=== PATIENT | female | born 1940 | race Caucasian/White ===

== ENCOUNTER 2017-11-23 16:36 | Emergency (ER) | payer OTHER ==
[~2017-11-23] VITALS: Ht 160 cm; Wt 64.0 kg
[~2017-11-23 16:36] MED LIST: ASPIR 8181 MG PO; BACTRIM DS TAB1 EACH PO; CARVEDILOL12.5 MG PO; CATAPRESS3 PO; CENTRUM SILVER1 EAC4 PO; CLEOCIN HCL150 MG; CLONIDINE HCL0.3 M3; COMBIVENT RESPIM4 GM INH; EFFER-K 10 MEQ10 ME1 PO; FLONASE 0.05%50 MCG NASAL; FOLIC ACID1 MG PO; HUMALOG100 UNIT/2 SQ; HUMULIN N100 UNIT/1 SUBQ; HUMULINR100 SUBQ; HYDRALAZINE 2525 MG PO; HYDROCODON-ACE1 EAC7 PO; HYDROCODONE-AP1 EAC6 PO; KLOR-CON 1010 MEQ PO; LASIX 80 MG TAB80 MG PO; LEVEMIR SUBQ; LISINOPRIL10 MG PO; METANX CAPSULE1 EACH PO; MIRALAX17 GM PO; NEPHROCAPS SOFT1 CAP PO; NORCO 5-325 TA1 EACH PO; NORVASC5 MG PO; PLAVIX 75 MG TA75 MG PO; PRAVACHOL40 M1 PO; PROCARDIA XL60 MG PO; PROTONIX40 M1 PO; REGLAN 10 MG TA10 MG PO; TENORMIN50 MG PO; TUMS PO; ULTRAM 50MG TAB50 MG PO; VITAMIN D1000 UNI1 PO; ZETIA10 MG PO; [UNRECOGNIZED DRUG - OTHER] PO
[2017-11-23 17:19] LABS: INFLUENZA B ANTIGEN None Detected (None Detect)
[2017-11-23 17:26] LABS: ABSOLUTE EOSINOPHILS 0.1 thou/uL (0.0-0.7); ABSOLUTE LYMPHOCYTES 1.1 thou/uL (0.8-5.3); ABSOLUTE MONOCYTES 0.8 thou/uL (0.0-1.2); ABSOLUTE NEUTROPHILS 3.3 thou/uL (1.6-8.1); BASOPHILS 0.9 %; EOSINOPHILS 1.1 %; HEMATOCRIT 36.2 % (37.0-47.0); HEMOGLOBIN 11.9 gm/dL (12.0-15.0); LYMPHOCYTES 20.4 %; MCH 31.1 pg (26.0-34.0); MCHC 32.8 g/dL (28.0-37.0); MPV 9.5 fl. (7.2-11.1); NUCLEATED RBCS 0 /100WBC; PLATELET COUNT* 248 thou/uL (150-400); POLYS 62.6 %; RBC 3.82 mil/uL (4.20-5.00); RDW-CV 14.2 % (10.5-14.5); WBC 5.3 thou/uL (4.0-11.0)
[2017-11-23 17:30] LABS: CALCIUM 8.6 mg/dL (8.5-10.1); CREATININE 2.5 mg/dL (0.6-1.3); POTASSIUM 3.5 mmol/L (3.5-5.1)
[2017-11-23 17:35] LABS: ALBUMIN 2.6 g/dL (3.4-5.0); TOTAL BILIRUBIN 0.2 mg/dL (<0.1-1.0); TOTAL PROTEIN 6.6 g/dL (6.4-8.2)
[2017-11-23] MEDS ORDERED: NEBULIZER MISCELL (18:33)
[2017-11-23] MEDS ORDERED: VENTOLIN HFA 1818 GM INH (18:33)
[2017-11-23] MEDS ORDERED: DUONEB 2.5-0.5 M3 ML INH (18:33)
[2017-11-23 18:47] VITALS: BP 168/64
[2018-02-20] MEDS ORDERED: BENADRYL25 MG PO (10:33)
[2018-02-20] MEDS ORDERED: NOVOLIN N100 UNIT/3 SUBQ (10:35)
[2018-05-01] MEDS ORDERED: MAGOX 400400 MG PO (09:59)
[2018-07-21] MEDS ORDERED: CATAPRESS3 TRANSDERM (10:26)
== END 2017-11-23 18:48 | disposition home or self-care (01) ==
LOC: M.ERS 16:36
PROVIDERS: Physician Assistant
DX: J11.1 Influenza due to unidentified influenza virus with other respiratory manifestations (principal); F17.210 Nicotine dependence, cigarettes, uncomplicated; E78.5 Hyperlipidemia, unspecified; I12.0 Hypertensive chronic kidney disease with stage 5 chronic kidney disease or end stage renal disease; E11.22 Type 2 diabetes mellitus with diabetic chronic kidney disease; N18.6 End stage renal disease; Z99.2 Dependence on renal dialysis; Z79.4 Long term (current) use of insulin; Z98.890 Other specified postprocedural states; Z88.1 Allergy status to other antibiotic agents; Z88.0 Allergy status to penicillin; Z88.8 Allergy status to other drugs, medicaments and biological substances

== ENCOUNTER 2017-11-28 09:01 | Inpatient (IN) | payer OTHER ==
[~2017-11-28] VITALS: Ht 160 cm; Wt 60.3 kg
[~2017-11-28 09:01] MED LIST changes: +DUONEB 2.5-0.5 M3 ML INH; +NEBULIZER MISCELL; +VENTOLIN HFA 1818 GM INH
[2017-11-28 09:32] LABS: HEMATOCRIT 35.2 % (37.0-47.0); HEMOGLOBIN 11.4 gm/dL (12.0-15.0); MCH 30.8 pg (26.0-34.0); MCHC 32.5 g/dL (28.0-37.0); MCV 94.8 fL (80.0-100.0); MPV 9.1 fl. (7.2-11.1); NUCLEATED RBCS 0 /100WBC; PLATELET COUNT* 348 thou/uL (150-400); RBC 3.71 mil/uL (4.20-5.00); RDW-CV 14.4 % (10.5-14.5); WBC 13.7 thou/uL (4.0-11.0)
[2017-11-28 09:38] LABS: CALCIUM 7.9 mg/dL (8.5-10.1); CREATININE 3.3 mg/dL (0.6-1.3); POTASSIUM 3.8 mmol/L (3.5-5.1)
[2017-11-28 09:41] LABS: APTT 34.4 Seconds (25.0-31.3); INR 1.2; PROTIME 11.3 Seconds (9.20-11.50)
[2017-11-28] MEDS ORDERED: NIFEDIPINE ER60 M1 PO (09:44)
[2017-11-28] MEDS ORDERED: ZYRTEC10 M4 PO (09:45)
[2017-11-28] MEDS ORDERED: RENAL CAPS SOFTG1 MG PO (09:45)
[2017-11-28 09:50] LABS: ALBUMIN 2.3 g/dL (3.4-5.0); TOTAL BILIRUBIN 0.2 mg/dL (<0.1-1.0); TOTAL PROTEIN 6.8 g/dL (6.4-8.2); TROPONIN-I LEVEL 0.47 ng/mL (<0.06)
[2017-11-28 10:05] LABS: ABSOLUTE LYMPHOCYTES 1.4 thou/uL (0.8-5.3); ABSOLUTE MONOCYTES 0.4 thou/uL (0.0-1.2); ABSOLUTE NEUTROPHILS 11.9 thou/uL (1.6-8.1); ATYPICAL LYMPHS 2 %; METAMYELOCYTES 1 %
[2017-11-28 10:06] LABS: HYPOCHROMASIA 1+; PLATELET ESTIMATE INCREASED
--- NOTE | 2017-11-28 13:01 | NUR ---
PT GIVEN TRAY FOR LUNCH AT THIS TIME.
--- NOTE | 2017-11-28 13:31 | NUR ---
CARDIOLOGY NURSE, GUNJAN CONTACTED AND INFORMED OF BUMPED TROPONIN.
[2017-11-28 14:22] VITALS: BP 133/55
[2017-11-28 16:05] VITALS: BP 127/52
[2017-11-28 16:10] VITALS: BP 131/48
[2017-11-28 16:12] LABS: URINE BILIRUBIN NEGATIVE (Negative); URINE BLOOD NEGATIVE (Negative); URINE CLARITY CLEAR; URINE COLOR YELLOW; URINE GLUCOSE-RANDOM NEGATIVE (Negative); URINE KETONES NEGATIVE (Negative); URINE LEUKOCYTES-REFLEX NEGATIVE (Negative); URINE NITRITE-REFLEX NEGATIVE (Negative); URINE PROTEIN 1+ (Negative); URINE SPECIFIC GRAVITY 1.025 (1.005-1.030); URINE UROBILINOGEN 0.2 E.U./dl (0.2-1.0)
--- NOTE | 2017-11-28 16:19 | EKG ---
[place] [address] ELECTROCARDIOGRAM REPORT Name: OWEN MARCANO Room: [address] ADM IN .R.#: [id number] Admission: 11/28/17 Attend Phys: Kevon Bunn MD Discharge: Date of : 40 Report #: [id number] THIS REPORT FOR: //name// [facility] ED Test Date: 2017-11-28 Test Time: 09:15:01 Pat Name: OWEN MARCANO Department: Room: [facility] Gender: F Medical Typist: Lorraine LANGE : 1940 Requested By: Tyrel Leahy Order Number: [id number] MD: Mynor Rice Measurements Intervals [place] Rate: 99 P: 170 NH: 207 QRS: -21 QRSD: 90 T: 60 QT: 333 QTc: 428 Interpretive Statements Sinus or ectopic atrial rhythm Supraventricular bigeminy Borderline prolonged NH interval Borderline left axis deviation Anterior infarct, old Compared to ECG 09/15/2017 05:19:19 Ectopic atrial rhythm now present Atrial premature complex(es) now present Sinus rhythm no longer present Ventricular premature complex(es) no longer present Myocardial infarct finding still present Electronically Signed On 11-28-2017 16:19:04 [employer] by Mynor Rice [email or web address] <ELECTRONICALLY SIGNED> By: Mynor Rice MD, [facility] 11/28/17 1619 4 4 Mynor Rice MD, [facility] /EPI
--- NOTE | 2017-11-28 17:14 | NUR ---
PT ADMITTED TO ROOM 202 AROUND 1610 WITH FLU, HYPOXIA, AND ELEVATED TROPONIN. TROPONINS TRENDING UP, CARDIOLOGY AWARE. PT ON 2L OXYGEN/ NC WITH SATS 96%. VSS. DISCUSSED PT WITH NEPHROLOGY. PT STATES NO DIALYSIS SINCE LAST SUNDAY D/T FEELING SICK. NEPHROLOGY PLANS TO DO DIALYSIS TOMORROW. ISOLATION PRECAUTIONS FOR FLU. NO OTHER CONCERNS AT THIS TIME. CLWR. WCTM.
[2017-11-28 20:00] VITALS: BP 140/53
[2017-11-29] VITALS: BP 139/53
[2017-11-29 04:00] VITALS: BP 141/56
--- NOTE | 2017-11-29 04:06 | NUR ---
ALERT AND ORIENTED TO SELF. CONT. ISOLATION FOR FLU. DENIES COMPLAINTS OF PAIN OR DISCOMFORT. NO SIGN OF DISTRESS AT THIS TIME. BED IN LOW POSITION, CALL LIGHT IN REACH. WILL PROCEED WITH CURRENT PLAN OF CARE.
[2017-11-29 05:20] LABS: HEMATOCRIT 36.5 % (37.0-47.0); HEMOGLOBIN 12.2 gm/dL (12.0-15.0); MCH 31.5 pg (26.0-34.0); MCHC 33.4 g/dL (28.0-37.0); MCV 94.6 fL (80.0-100.0); MPV 9.4 fl. (7.2-11.1); NUCLEATED RBCS 0 /100WBC; PLATELET COUNT* 356 thou/uL (150-400); RBC 3.86 mil/uL (4.20-5.00); RDW-CV 14.5 % (10.5-14.5); WBC 18.6 thou/uL (4.0-11.0)
[2017-11-29 05:41] LABS: CALCIUM 7.9 mg/dL (8.5-10.1); CREATININE 3.4 mg/dL (0.6-1.3); POTASSIUM 4.7 mmol/L (3.5-5.1)
[2017-11-29 06:35] LABS: ABSOLUTE LYMPHOCYTES 0.9 thou/uL (0.8-5.3); ABSOLUTE MONOCYTES 0.2 thou/uL (0.0-1.2); ABSOLUTE NEUTROPHILS 17.5 thou/uL (1.6-8.1); ANISOCYTOSIS 1+; PLATELET ESTIMATE ADEQUATE; POIKILOCYTOSIS 1+; POLYCHROMASIA Occasional
[2017-11-29 08:00] VITALS: BP 153/68
--- NOTE | 2017-11-29 12:55 | CON ---
[address] [address] CONSULTATION Name: OWEN MARCANO Room: [address] IN M.R.#: [id number] Admission: 11/28/17 Attend Phys: Kevon Bunn MD Discharge: Date of : 40 Report #: [id number] THIS REPORT FOR: //name// CC: Kevon Bunn KRISTYN EMERSON DATE OF SERVICE: 11/28/2017 ATTENDING PHYSICIAN: Kevon Bunn MD REASON FOR EVALUATION: Influenza A, complicated by dehydration, possible early sepsis. HISTORY OF PRESENT ILLNESS: Chart reviewed, patient examined. This is a 77-year-old female with diabetes mellitus type 2, this is complicated by end-stage renal disease, on thrice weekly hemodialysis, who apparently was diagnosed with influenza latter part of last week. This was confirmed. She notes that a great granddaughter who was diagnosed as well. She was offered treatment with oseltamivir; however, she declined. She continued to feel worse over the course of the last several days, missed 2 dialysis appointments, became progressively weak and more short of breath. She had fever as well, had poor appetite and p.o. intake. She was evaluated in the Emergency Room. Lactic acid was 1.4. White count elevated at 13.1. Chest x-ray, no overt pneumonitis. She was febrile to 103.3 earlier today. She is mildly encephalopathic at this point. Denies significant amount of pain. ALLERGIES: PENICILLINS, TETRACYCLINE AND ERYTHROMYCIN. CURRENT MEDICATIONS: Include levofloxacin, vancomycin, folic acid, nifedipine, lisinopril, clopidogrel, cholecalciferol, aspirin, ezetimibe, pantoprazole, furosemide, insulin, carvedilol, ipratropium and albuterol inhaler, hydralazine, p.r.n. analgesics and antiemetics. PAST MEDICAL HISTORY: As described above, diabetes mellitus complicated by end-stage renal disease, hyperlipidemia, hypertension. SOCIAL HISTORY: She is a long time tobacco smoker. No ethanol. No illicit drug use. FAMILY HISTORY: Noncontributory. REVIEW OF SYSTEMS: As above. PHYSICAL EXAMINATION: GENERAL: She appears chronically ill, undernourished, in moderate distress, on oxygen supplement per mask. She is pleasant, [place] [address] CONSULTATION Name: OWEN MARCANO SIMON Room: [address]#: [id number] Admission: 11/28/17 Attend Phys: Kevon Bunn MD Discharge: Date of : 40 Report #: [id number] VITAL SIGNS: Temperature now 99.9 with a T-max of 103.3, pulse ____, respirations 14, blood pressure 127/52. SKIN: Warm, dry. I do not appreciate any rashes. She has got some thinning of the skin and some loss of subcutaneous tissue. HEENT: Neck is supple. LUNGS: Few scattered coarse breath sounds. HEART: Regular, may have soft systolic murmur. ABDOMEN: Soft, nontender, nondistended. EXTREMITIES: No cyanosis. GENITOURINARY: Deferred. RECTAL: Deferred. LABORATORY DATA: Troponin elevated at 0.93. CBC: White count 13.7, H and H 11.4 and 35.2, platelets of 348, evidence of neutrophilia. Electrolytes: Sodium 136, potassium 3.8, chloride 98, bicarbonate is 27, anion gap of 11, BUN and creatinine 59 and 3.3, glucose of 87, AST of 47, ALT of 29, total bilirubin of 0.2. Estimated GFR of 14. Albumin 2.3. Total protein of 6.8. ASSESSMENT: Influenza by history, certainly consistent with that due to her feeling poorly, ____ given her missing dialysis appointments ____ continued taking the Lasix and dehydration concern. I think it is reasonable to treat empirically ____ risk for secondary complication with bacterial pneumonitis, see how she does clinically over the next 24-48 hours. At this point, she remains fairly tenuous. <ELECTRONICALLY SIGNED> By: Vern Cisneros MD 11/29/17 1255 1533 [id number] Cisneros MD /nt
--- NOTE | 2017-11-29 14:05 | 2DMMODE ---
[place] [address] 2 D/M-MODE ECHOCARDIOGRAM Name: OWEN MARCANO Room: [address] IN [facility]#: [id number] Admission: 11/28/17 Attend Phys: Kevon Bunn, Discharge: Date of : 40 Date of Service: 11/29/17 1404 Report #: [id number] THIS REPORT FOR: //name// APPROVED REPORT Study performed: 11/29/2017 11:52:40 EXAM: Comprehensive 2D, Doppler, and color-flow Echocardiogram Patient Location: In-Patient Room #: [facility] Status: routine BSA: 1.67 HR: 56 bpm BP: 141/56 mmHg Rhythm: NSR Other Information Study Quality: Good Indications Elevated Troponin 2D Dimensions LVEF(%): 47.05 (>50%) IVSd: 11.93 (7-11mm) LVOT Diam: 18.25 (18-24mm) LVDd: 39.15 mm PWd: 9.50 (7-11mm) Ascending Ao: 25.79 (22-36mm) LVDs: 30.08 (25-40mm) Aortic Root: 29.02 mm Blackmon's LVEF: 47.05 % Volumes Left Atrial Volume (Systole) LA ESV Index: 15.90 mL/m2 Aortic Valve AoV Peak Moreno.: 1.25 m/s AO Peak Gr.: 6.22 mmHg LVOT Max P.73 mmHg AO Mean Gr.: 3.41 mmHg LVOT Mean P.65 mmHg LVOT Max V: 0.97 m/s AO V2 VTI: 25.14 cm LVOT Mean V: 0.58 m/s TEQUILA (VTI): 2.02 cm2 LVOT V1 VTI: 19.39 cm Mitral Valve E/A Ratio: 0.86 [place] [address] 2 D/M-MODE ECHOCARDIOGRAM Name: OWEN MARCANO Room: [address] IN .R.#: [id number] Admission: 11/28/17 Attend Phys: Kevon Bunn, Discharge: Date of : 40 Date of Service: 11/29/17 1404 Report #: [id number] MV Decel. Time: 333.58 ms MV E Max Moreno.: 0.72 m/s MV PHT: 96.74 ms MVA (PHT): 2.27 cm2 TDI E/Lateral E': 10.29 E/Medial E': 8.00 Medial E' Moreno.: 0.09 m/s Lateral E' Moreno.: 0.07 m/s Pulmonary Valve PV Peak Moreno.: 1.08 m/s PV Peak Gr.: 4.68 mmHg Tricuspid Valve TR Peak Gr.: 32.25 mmHg RVSP: 37.00 mmHg Left Ventricle The left ventricle is normal size. There is abnormal wall motion with distal anterior hypokinesis There is normal left ventricular wall thickness. Left ventricular systolic function is normal. The left ventricular ejection fraction is within the normal range. LVEF is 55-60%. Grade I - abnormal relaxation pattern. Right Ventricle The right ventricle is normal size. The right ventricular systolic function is normal. Atria The left atrium size is normal. The right atrium size is normal. Aortic Valve The aortic valve is normal in structure. No aortic regurgitation is present. There is no aortic valvular stenosis. Mitral Valve Mild mitral annular calcification. There is no mitral valve regurgitation noted. No evidence of mitral valve stenosis. Tricuspid Valve The tricuspid valve is normal in structure. Mild tricuspid regurgitation. The RVSP is 35-40 mmHg. Pulmonic Valve The pulmonary valve is normal in structure. There is no pulmonic [place] [address] 2 D/M-MODE ECHOCARDIOGRAM Name: OWEN MARCANO Room: [address] IN M.R.#: [id number] Admission: 11/28/17 Attend Phys: Kevon Bunn, Discharge: Date of : 40 Date of Service: 11/29/17 1404 Report #: [id number] Great Vessels The aortic root is normal in size. IVC is normal in size and collapses with >50% inspiration Pericardium There is no pericardial effusion. <Conclusion> The left ventricle is normal size. There is normal left ventricular wall thickness. Left ventricular systolic function is normal. The left ventricular ejection fraction is within the normal range. LVEF is 55-60%. Grade I - abnormal relaxation pattern. The right ventricle is normal size. The left atrium size is normal. The aortic valve is normal in structure. Mild mitral annular calcification. There is no mitral valve regurgitation noted. The tricuspid valve is normal in structure. Mild tricuspid regurgitation. The RVSP is 35-40 mmHg. IVC is normal in size and collapses with >50% inspiration There is no pericardial effusion. There is abnormal wall motion with distal anterior hypokinesis <ELECTRONICALLY SIGNED> By: Mynor Rice MD, FACC 11/29/17 1404 1404 1404 Mynor Rice MD, FACC /INF
--- NOTE | 2017-11-29 14:56 | NUR ---
CM SPOKE TO THE PATIENT TO DISCUSS HOME SITUATION, DISCHARGE PLANNING, AND TO INFORM OF THE ROLE OF CM. PATIENT ALERT AND ORIENTED. PATIENT STATES THAT SHE IS NORMALLY INDEPENDENT AT HOME WITH BATHING AND DRESSING. PATIENT RESIDES AT HOME WITH HER AND HE DOES ALL COOKING, CLEANING, AND DRIVING. PATIENT CURRENTLTY RECIEVES DIALYSIS AT [facility] ([facility]). PATIENT OWNS 0 DME. PATIENT HAS A HX OF SNF AT [facility]. PATIENT PLANS TO RETURN HOME AT D/C. CM WILL REMAIN AVIALABLE TO ASSIST AND FOLLOW NEEDED.
[2017-11-29 16:00] VITALS: BP 110/37
[2017-11-29 18:10] LABS: HEPATITIS B SURFACE AG Negative (Negative)
--- NOTE | 2017-11-29 18:40 | NUR ---
I ASSUMED CARE OF THE PATIENT AT 0700. SHE IS ALERT AND ORIENTED X4 AND IS UP WITH ASSIST X1. ISOLATION WAS MAINTAINED FOR DROPLET PRECAUTIONS. HOURLY ROUNDING WAS COMPLETED AND PATIENT NEEDS WERE MET. PAIN WAS DENIED. BED IS IN THE LOW LOCKED POSITION AND CALL LIGHT IS IN REACH. IS AT THE BEDSIDE MOST OF THE DAY. SHE HAD DIALYSIS FOR 3.5 HOURS TODAY. WILL CONTINUE TO MONITOR.
[2017-11-29 19:55] VITALS: BP 100/40
[2017-11-30] VITALS: BP 90/40
--- NOTE | 2017-11-30 02:08 | NUR ---
ASSUMED CARE OF PT AT 1900. PT IS ALERT AND ORIENTED. VSS. PERRLA. NO COMPLAINTS OF PAIN. PT IS IN SINUS RYTHM ON THE TELEMETRY. PT IS RESTING COMFORTABLY IN BED. RESPIRATIONS ARE EVEN AND NONLABORED. WILL CONTINUE TO MONITOR PT.
[2017-11-30 04:00] VITALS: BP 118/42
[2017-11-30 05:18] LABS: ABSOLUTE LYMPHOCYTES 1.4 thou/uL (0.8-5.3); ABSOLUTE MONOCYTES 0.9 thou/uL (0.0-1.2); ABSOLUTE NEUTROPHILS 22.8 thou/uL (1.6-8.1); BASOPHILS 0.1 %; HEMATOCRIT 35.9 % (37.0-47.0); HEMOGLOBIN 11.9 gm/dL (12.0-15.0); LYMPHOCYTES 5.7 %; MCH 30.7 pg (26.0-34.0); MCHC 33.2 g/dL (28.0-37.0); MCV 92.3 fL (80.0-100.0); MONOCYTES 3.6 %; MPV 8.9 fl. (7.2-11.1); NUCLEATED RBCS 0 /100WBC; POLYS 90.6 %; RBC 3.89 mil/uL (4.20-5.00); RDW-CV 14.4 % (10.5-14.5); WBC 25.2 thou/uL (4.0-11.0)
[2017-11-30 05:29] LABS: PLATELET COUNT* 462 thou/uL (150-400)
[2017-11-30 05:34] LABS: ALBUMIN 2.2 g/dL (3.4-5.0); CALCIUM 8.7 mg/dL (8.5-10.1); CREATININE 2.9 mg/dL (0.6-1.3); POTASSIUM 3.8 mmol/L (3.5-5.1); TOTAL BILIRUBIN 0.3 mg/dL (<0.1-1.0); TOTAL PROTEIN 6.9 g/dL (6.4-8.2)
[2017-11-30 07:00] VITALS: BP 120/42
[2017-11-30 12:00] VITALS: BP 120/42
--- NOTE | 2017-11-30 19:04 | NUR ---
VSS, PT IS PROGRESSING TOWARDS GOAL, PT HAS BEEN UP IN CHAIR AND DENIES ANY PAIN AND IS MED-SURG STATUS. PT HAS NOT OTHER STATUS CAHNGE AT THIS TIME AND IS ON 2LNC AND A&O4 UP WITH ONE TO BSC, WORKED WITH PT/OT AND GOT CLEANED UP.
--- NOTE | 2017-11-30 19:23 | NUR ---
VSS, PT IS MED-SURG STATUS, PT IS ON 2L NC, I INFORMED DR. SHI AND DR. ORTEGA OF GRAM POS COCCI IN BLOOD, PT IS FLAGGING SEPSIS POS, NO NEW ORDERS AT THIS TIME, NO OTHER STATUS CHANGE AT THIS TIME, WILL FOLLOW WITH PLAN OF CARE. AND SHIFT CHANGE.
[2017-11-30 20:36] VITALS: BP 111/36
--- NOTE | 2017-11-30 21:39 | NUR ---
ASSUMED PATIENT CARE AT 1900. BEDSIDE REPORT GIVEN. SPOUSE AT BEDSIDE. VERIFIED DIALYSIS SCHEDULE. M/S STATUS. 2L NC. PATIENT INFORMED OF ELEVATED BG. STATES SHE DOES NOT TAKE INSULIN AT BEDTIME DUE TO HISTORY OF HYPOGLYCEMIA OVERNIGHT. HOURLY ROUNDING AND FALL PRECAUTIONS IN PLACE. WILL CONTNUE TO MONITOR.
[2017-12-01 04:00] VITALS: BP 84/45
[2017-12-01 05:47] LABS: CALCIUM 8.2 mg/dL (8.5-10.1); CREATININE 4.6 mg/dL (0.6-1.3); POTASSIUM 3.7 mmol/L (3.5-5.1)
[2017-12-01 07:30] VITALS: BP 128/46
--- NOTE | 2017-12-01 09:11 | NUR ---
VSS, ASSUMED CARE IN THE AM, ASSESSMENT PERFORMED AND CHARTED, FALL PRECAUTIONS IN PLACE AND CALL LIGHT IN REACH, PT IS A&O4 AND ON 2L NC AND UP WITH ONE TO BSC, PT IS WEAK AND IS TO GO TO DIALYSIS TODAY, PT DENIES ANY PAIN AND IS MED-SURG STATUS, PT GOAL IS TO SIT UP IN CHAIR AND IMPROVE BREATHING, PT REMAINS IN ISO WILL FOLLOW WITH PLAN OF CARE.
[2017-12-01 16:00] VITALS: BP 134/41
--- NOTE | 2017-12-01 18:51 | NUR ---
VSS, PT IS HAS MET GOAL, PT IS MED-SURG ON 2L NC AND UP WITH ONE AND COMPLETED DIALYSIS, PT IS A&O4 DENIES ANY PAIN AND PT IS UP WITH ONE TO BSC AND IS WEAK, PAPA FOLLOW WITH PLAN OF CARE AND HOURLY ROUNDS COMPLETED.
[2017-12-01 19:40] VITALS: BP 121/33
[2017-12-02 04:22] VITALS: BP 134/78
--- NOTE | 2017-12-02 05:01 | NUR ---
END SHIFT: PT RESTED WELL. LETHARGIC OVER SHIFT. PT STATES THAT SHE "GETS LIKE THIS AFTER DIALYSIS." REMAINS ON 2L NC. RIGHT CHEST DIALYSIS CATH CLEAN DRY AND INTACT. NO COMPLAINTS OVER SHIFT, NO PAIN. SAFETY PRECAUTIONS IN PLACE. CALL LIGHT IN REACH. PERFORMED HOURLY ROUNDING. WILL CONT TO MONITOR.
[2017-12-02 08:00] VITALS: BP 151/63
[2017-12-02 10:09] LABS: HEMATOCRIT 41.8 % (37.0-47.0); HEMOGLOBIN 13.5 gm/dL (12.0-15.0); MCH 30.6 pg (26.0-34.0); MCHC 32.3 g/dL (28.0-37.0); MCV 94.8 fL (80.0-100.0); MPV 8.6 fl. (7.2-11.1); NUCLEATED RBCS 0 /100WBC; PLATELET COUNT* 424 thou/uL (150-400); RDW-CV 14.4 % (10.5-14.5); WBC 17.9 thou/uL (4.0-11.0)
[2017-12-02 10:28] LABS: ALBUMIN 2.4 g/dL (3.4-5.0); CALCIUM 8.9 mg/dL (8.5-10.1); CREATININE 3.8 mg/dL (0.6-1.3); POTASSIUM 4.3 mmol/L (3.5-5.1); TOTAL BILIRUBIN 0.4 mg/dL (<0.1-1.0); TOTAL PROTEIN 7.1 g/dL (6.4-8.2)
[2017-12-02 10:32] LABS: ABSOLUTE LYMPHOCYTES 0.9 thou/uL (0.8-5.3); ABSOLUTE MONOCYTES 0.7 thou/uL (0.0-1.2); ABSOLUTE NEUTROPHILS 16.3 thou/uL (1.6-8.1); METAMYELOCYTES 4 %
[2017-12-02 10:33] LABS: PLATELET ESTIMATE ADEQUATE
[2017-12-02 11:00] VITALS: BP 154/60
--- NOTE | 2017-12-02 15:27 | NUR ---
VSS, ASSUMED CARE IN THE AM, ASSESSMENT PERFORMED AND CHARTED, FALL PRECAUTIONS IN PLACE AND CALL LIGHT IN REACH, PT IS ON 2L NC AND MEDSURG STATUS UP WITH ONE AND WALKER, PT DENIES ANY PAIN AND IS A&4, HER GOAL IS TO GET A SHOWER AND SIT UP IN CAHIR AND IMPROVE BREATHING, WILL FOLLOW WITH PLAN OF CARE.
[2017-12-02 16:00] VITALS: BP 108/41
--- NOTE | 2017-12-02 19:16 | NUR ---
VSS, PT IS PROGRESSING TOWARDS GOAL, PT IS A&O4 AND ON 2L NC PT DENIES ANY PAIN AND MED-SURG STATUS, PT GOT SHOWER AND SAT UP IN CHAIR, PT IS WEAK, HOURLY ROUNDS COMPLETED.
[2017-12-02 20:00] VITALS: BP 98/40
[2017-12-03] VITALS: BP 113/44
--- NOTE | 2017-12-03 04:20 | NUR ---
ASSUMED PT CARE AT 1930, PT IS A&OX4, MED SURG STATUS, PT IS ON ISOLATION FOR FLU. ON 2L NC SATTING MID TO HIGH 90'S AT THIS TIME, PT IS ON A 1500 FR, APPEARS TO BE COMPLIANT WITH RESTRICTION, PT IS UP WITH ONE TO THE BSC, PT HAD A BM THIS SHIFT. DENIES ANY PAIN OR NEEDS AT THIS TIME. BED IN LOW POSITION, CALL LIGHT IN REACH, BED ALARM ON, YELLOW ARM BAND AND SOCKS IN PLACE. HOURLY ROUNDING COMPLETED FOR PT SAFETY.
[2017-12-03 05:23] LABS: ABSOLUTE LYMPHOCYTES 1.3 thou/uL (0.8-5.3); ABSOLUTE MONOCYTES 1.1 thou/uL (0.0-1.2); ABSOLUTE NEUTROPHILS 13.9 thou/uL (1.6-8.1); BASOPHILS 0.2 %; HEMOGLOBIN 11.6 gm/dL (12.0-15.0); LYMPHOCYTES 8.1 %; MCH 30.6 pg (26.0-34.0); MCHC 33.2 g/dL (28.0-37.0); MONOCYTES 6.9 %; MPV 8.5 fl. (7.2-11.1); NUCLEATED RBCS 0 /100WBC; PLATELET COUNT* 425 thou/uL (150-400); POLYS 84.8 %; RDW-CV 14.2 % (10.5-14.5); WBC 16.4 thou/uL (4.0-11.0)
[2017-12-03 05:33] LABS: ALBUMIN 2.1 g/dL (3.4-5.0); CALCIUM 8.4 mg/dL (8.5-10.1); CREATININE 4.6 mg/dL (0.6-1.3); TOTAL BILIRUBIN 0.3 mg/dL (<0.1-1.0); TOTAL PROTEIN 6.1 g/dL (6.4-8.2)
[2017-12-03 07:30] VITALS: BP 117/47
--- NOTE | 2017-12-03 11:00 | NUR ---
Pt to dc home tomorrow with HH. CM will fax flowsheets at sc to [facility].
[2017-12-03 15:28] VITALS: BP 143/38
--- NOTE | 2017-12-03 16:25 | NUR ---
VSS, ASSUMED CARE IN THE AM, ASSESSMENT PERFORMED AND CHARTED, FALL PRECAUTIONS IN PLACE AND CALL LIGHT IN REACH, PT IS UP WITH ONE AND WALKER, IS ON 2L NC AND DENIES ANY PAIN PT GOAL IS TO WORK WITH PT/OT AND SIT UP IN CHAIR, PT IS MED-SURG STATUS AND IS TO TRANS UP TO 3W, CALLED REPOT TO NURSE AND HELPED TRANDFER HER AND BLONGINGS UP.
--- NOTE | 2017-12-03 17:10 | NUR ---
PATIENT TRANSFERRED TO ROOM 315 VIA WHEELCHAIR FROM [facility]. REPORT RECEIVED FROM Coty JAUREGUI RN. AGREE WITH PREVIOUS ASSESSMENT. ORIENTED TO NEW ROOM AND ENVIRONMENT. AT BEDSIDE. CALL LIGHT WITHIN REACH. WILL CONTINUE WITH PLAN OF CARE.
[2017-12-03 23:49] VITALS: BP 117/41
[2017-12-04 04:04] LABS: ABSOLUTE LYMPHOCYTES 1.4 thou/uL (0.8-5.3); ABSOLUTE NEUTROPHILS 14.9 thou/uL (1.6-8.1); BASOPHILS 0.2 %; EOSINOPHILS 0.3 %; HEMATOCRIT 35.2 % (37.0-47.0); HEMOGLOBIN 11.6 gm/dL (12.0-15.0); MCH 30.4 pg (26.0-34.0); MCHC 32.9 g/dL (28.0-37.0); MCV 92.6 fL (80.0-100.0); MONOCYTES 5.5 %; MPV 8.5 fl. (7.2-11.1); NUCLEATED RBCS 0 /100WBC; PLATELET COUNT* 385 thou/uL (150-400); RDW-CV 13.9 % (10.5-14.5); WBC 17.3 thou/uL (4.0-11.0)
[2017-12-04 04:24] LABS: ALBUMIN 1.9 g/dL (3.4-5.0); CALCIUM 8.1 mg/dL (8.5-10.1); POTASSIUM 4.4 mmol/L (3.5-5.1); TOTAL BILIRUBIN 0.3 mg/dL (<0.1-1.0); TOTAL PROTEIN 5.8 g/dL (6.4-8.2)
[2017-12-04 04:30] LABS: CREATININE 5.8 mg/dL (0.6-1.3)
--- NOTE | 2017-12-04 06:59 | NUR ---
PT SLEPT WELL OVERNIGHT WITHOUT COMPLAINTS. HS ACCUCHECK 257, 12 UNITS LEVEMEIR GIVEN PER FAMILY REQUEST. AM LABS DRAWN. O22L. R CHEST TESSIO, TO HAVE DIALYSIS TODAY. REMAINS ON DROPLET ISOLATION FOR +FLU. CALL LITE IN EASY REACHED, BED ALARM ON FOR SAFETY. R AND L AC SL. RECEIVED HYDDROCODONE ONCE FOR CO BACK PAIN WITH GOOD RESULT.
[2017-12-04 08:10] VITALS: BP 126/45
--- NOTE | 2017-12-04 12:36 | CON ---
[address] [address] CONSULTATION Name: OWEN MARCANO Room: [address] IN M.R.#: [id number] Admission: 11/28/17 Attend Phys: Kevon Bunn MD Discharge: Date of : 40 Report #: [id number] THIS REPORT FOR: //name// CC: Kevon Bunn KRISTYN EMERSON DATE OF SERVICE: 11/29/2017 CONSULTING PHYSICIAN: Kevon Bunn MD. REASON FOR ADMISSION AND CHIEF COMPLAINT: Shortness of breath. HISTORY OF PRESENT ILLNESS: This is a 77-year-old female with past medical history of end-stage renal disease, on hemodialysis every Sunday, , Sunday and other medical problems, who came into the hospital with high fevers, cough and phlegm. The patient was diagnosed with influenza A, but the patient did not start her Tamiflu until yesterday. The patient is now feeling better. The patient was seen on dialysis this morning. The patient missed her previous 2 sessions of dialysis and her last dialysis was last . REVIEW OF SYSTEMS: 1. Shortness of breath and cough and phlegm which is now getting better. 2. The patient has edema. 3. Otherwise, 10-point review of systems done and negative. PAST MEDICAL HISTORY: Includes: 1. ESRD, on hemodialysis every Sunday, , Sunday at [facility]. 2. Diabetes. 3. Hyperlipidemia. 4. Hypertension. PAST SURGICAL HISTORY: Includes: 1. Tonsil surgery. 2. Foot callus removal. 3. Lens implant. 4. Stomach surgery. FAMILY HISTORY: Noncontributory. SOCIAL HISTORY: Does smoke everyday. No history of alcohol use or recreational drug use. PHYSICAL EXAMINATION: VITAL SIGNS: Blood pressure is 141/56, pulse rate 79, temperature 36.6, [place] [address] CONSULTATION Name: OWEN MARCANO Room: [address]#: [id number] Admission: 11/28/17 Attend Phys: Kevno Bunn MD Discharge: Date of : 40 Report #: [id number] respiration rate is 19, pulse ox is 98% on room air. GENERAL: She is awake, alert, oriented x 3, no acute distress. HEAD, EYES, EARS, NOSE, THROAT: Mucous membranes are moist. NECK: No JVD. CHEST: Bilateral diminished breath sounds. No wheezing heard. CARDIOVASCULAR: S1, S2 normal. No murmurs heard. ABDOMEN: Soft, nontender. Bowel sounds are present. EXTREMITIES: Lower extremity edema, symmetrical extremities. DIALYSIS ACCESS: She has a right IJ dialysis catheter in place. NEUROLOGICAL FUNCTION: Gross neurological function is intact. PSYCHIATRIC: Mood and affect seem to be normal. LABORATORY DATA: WBC is 18.6, hemoglobin is 12.2. Sodium is 138, potassium is 4.7. Other labs are reviewed. Chest x-ray was reviewed. ASSESSMENT: 1. End-stage renal disease, on hemodialysis. 2. Hypertension. 3. Elevated troponin. 4. Influenza A. PLAN: The patient is being dialyzed as per her Sunday, , Sunday schedule. The patient was seen on dialysis right now. Blood pressure is controlled. Cardiology is following the patient for her elevated troponin. Echocardiogram as per Cardiology. She is getting Tamiflu for her influenza A. Thank you for this consultation. I will continue to follow her for her dialysis needs. <ELECTRONICALLY SIGNED> By: Pamela Pinto MD 12/04/17 1236 1028 1400Pamela Pinto MD /nt
--- NOTE | 2017-12-04 17:05 | NUR ---
PATIENT HAS BEEN A/O X 4 THIS SHIFT. PATIENT UP WITH ASSIST TO BSC. PATIENT TITRATED TO ROOM AIR. PATIENT HAD DIALYSIS TODAY. BLOOD SUGARS MONITORED. PATIENT WITH DECREASED APPETITE. GIVEN ZOFRAN THIS AM FOR NAUSEA. PATIENT'S AT BEDSIDE THROUGHOUT THE SHIFT. DC PLANNING IN PROCESS. PATIENT HOPEFUL TO BE DISCHARGED SOON. HOURLY ROUNDING COMPLETED. REMAINS IN DROPLET PRECAUTIONS. FALL PRECAUTIONS IN PLACE. CALL LIGHT WITHIN REACH. WILL CONTINUE WITH PLAN OF CARE.
[2017-12-04 18:21] VITALS: BP 125/47
[2017-12-05 00:14] VITALS: BP 144/53
[2017-12-05 00:21] VITALS: BP 105/36
[2017-12-05 09:15] VITALS: BP 104/41
[2017-12-05 13:06] LABS: HEMATOCRIT 34.1 % (37.0-47.0); HEMOGLOBIN 11.1 gm/dL (12.0-15.0); MCH 30.5 pg (26.0-34.0); MCHC 32.5 g/dL (28.0-37.0); MCV 93.9 fL (80.0-100.0); MPV 8.7 fl. (7.2-11.1); NUCLEATED RBCS 0 /100WBC; PLATELET COUNT* 391 thou/uL (150-400); RBC 3.64 mil/uL (4.20-5.00); RDW-CV 14.3 % (10.5-14.5); WBC 14.6 thou/uL (4.0-11.0)
[2017-12-05 13:17] LABS: CALCIUM 7.9 mg/dL (8.5-10.1); CREATININE 3.9 mg/dL (0.6-1.3); POTASSIUM 4.2 mmol/L (3.5-5.1); TOTAL BILIRUBIN 0.2 mg/dL (<0.1-1.0); TOTAL PROTEIN 5.1 g/dL (6.4-8.2)
[2017-12-05 13:23] LABS: ABSOLUTE LYMPHOCYTES 2.3 thou/uL (0.8-5.3); ABSOLUTE MONOCYTES 0.7 thou/uL (0.0-1.2); ABSOLUTE NEUTROPHILS 11.5 thou/uL (1.6-8.1); METAMYELOCYTES 1 %; PLATELET ESTIMATE ADEQUATE
--- NOTE | 2017-12-05 15:13 | NUR ---
Pt was seen d/t hospital LOS. Pt was admitted for flu and elevated troponin. Pt has had decreased appetite d/t illness. Pt has been trying to eat a little more at every meal per RN. PT is on renal and 1800 carb controlled diet with a 1500 ml fluid restriciton. RN thinks pt would benefit from Magic Cup. RD ordered. PT will likely d/c to home health.
[2017-12-05 16:54] VITALS: BP 148/37
--- NOTE | 2017-12-05 18:38 | NUR ---
PATIENT HAS BEEN A/O X 4, SLIGHTLY FORGETFUL AT TIMES. PATIENT'S BP RUNNING LOW THIS SHIFT, ORDERS RECEIVED FROM DR SHI TO HOLD BP MEDS. SALINE LOCK X 2 INTACT. PATIENT ON ROOM AIR THIS AM, SAT 92%. PATIENT STATED FEELING SHORT OF BREATH THIS AM AND PLACED BACK ON 1L/NC AND FELT RELIEF. PATIENT'S APPETITE POOR THIS AM, EDUCATED PATIENT ON NEED TO INCREASE APPETITE TO HELP GAIN STRENGTH BACK AND PATIENT DID EAT BETTER FOR LUNCH AND DINNER. PATIENT AND FAMILY REFUSING SHORT ACTING INSULIN BECAUSE OF HISTORY OF BLOOD SUGARS BEING TOO LOW. PATIENT UP TO BSC WITH MODERATE ASSIST. PATIENT'S ANTIBIOTICS ADJUSTED PER ID. PATIENT TO HAVE DIAYSIS TOMORROW. HOPING TO BE DISCHARGED SOON. AT BEDSIDE THROUGHOUT THE SHIFT. HOURLY ROUNDING COMPLETED. CALL LIGHT WITHIN REACH. WILL CONTINUE WITH PLAN OF CARE.
[2017-12-05 20:10] VITALS: BP 130/57
--- NOTE | 2017-12-06 05:07 | NUR ---
PT SLEPT SOUNDLY DURING THE NIGHT, IV IN PLACE, REMAINS ON 02 AT 1L/NC, PLEASANT, RIGHT CHEST TESSIO INTACT, PRN TYLENOL AT HS FOR BACK PAIN, PT TURNED SELF, CALL LIGHT IN REACH, BED ALARM ON FOR SAFETY, WILL CONTINUE TO MONITOR
[2017-12-06 05:17] LABS: ALBUMIN 1.9 g/dL (3.4-5.0); PHOSPHORUS* 4.4 mg/dL (2.5-4.9); POTASSIUM 4.3 mmol/L (3.5-5.1)
[2017-12-06 05:45] LABS: CALCIUM 7.7 mg/dL (8.5-10.1)
[2017-12-06 05:46] LABS: CREATININE 5.1 mg/dL (0.6-1.3)
[2017-12-06 07:50] VITALS: BP 151/55
[2017-12-06 14:54] VITALS: BP 151/55
--- NOTE | 2017-12-06 14:55 | NUR ---
SW met with pt while pt was in dialysis. SW discussed safe dc planning; pt to dc home today with pt care. Pt declined any need for HH services and explained that pt has everything she needs at home and pt said he feels confident in caring for pt as he has been doing for a while now. Pt to continue dialysis at [facility] T, , Sat. SW called [facility] and they expect pt to return on Sunday; SW faxed information needed to [facility] at fax [phone]. SW discussed neurology and pulmonology was suggested to follow up with pt and pt in agreement and appreciated SW providing list of options for pt to be able to follow up after dc. No other needs or concerns expressed at this time. Pt plans to be back after dialysis to provide pt ride home. Pt completed DPOA and SW notarized and filed in pt chart. SW provided original and copies to pt/family.
[2017-12-06] MEDS ORDERED: PROTONIX40 M1 PO (15:23)
[2017-12-06] MEDS ORDERED: PREDNISONE 10 M10 MG PO (15:23)
[2017-12-06] MEDS ORDERED: LEVAQUIN 250 M250 MG PO (15:24)
[2017-12-06] MEDS ORDERED: CEFUROXIME250 MG PO (16:06)
[2017-12-06 16:59] VITALS: BP 128/64
--- NOTE | 2017-12-06 18:50 | NUR ---
PATIENT DISCHARGED TO HOME. DISCHARGE PAPERS REVIEWED AND SIGNED. PRESCRIPTIONS CALLED TO PHARMACY. INFORMATION GIVEN FOR PULMONARY AND NEUROLOGY FOLLOW-UPS. INFORMATION FAXED TO SCHEDULING FOR SLEEP STUDY. IV REMOVED. OUTPATIENT DIALYSIS AT [facility]. PATIENT DENIES ANY FURTHER NEEDS. PATIENT TAKEN BY WHEELCHAIR TO EXIT. LEFT WITH .
[2018-02-20] MEDS ORDERED: BENADRYL25 MG PO (10:33)
[2018-02-20] MEDS ORDERED: NOVOLIN N100 UNIT/3 SUBQ (10:35)
[2018-05-01] MEDS ORDERED: MAGOX 400400 MG PO (09:59)
[2018-07-21] MEDS ORDERED: CATAPRESS3 TRANSDERM (10:26)
== END 2017-12-06 18:50 | disposition home or self-care (01) | DRG 871 ==
LOC: M.ERS 09:01 → M.TBA-ER 10:53 → M.3W 10:53 → M.2W 10:53 → M.3W 12-03 16:58
PROVIDERS: Emergency Medicine Emergency Medical Services; Internal Medicine; Internal Medicine Cardiovascular Disease; Internal Medicine Nephrology; ADMIT Internal Medicine
PROC: B24BZZ4 Ultrasonography of Heart with Aorta, Transesophageal (ICD-10-PCS; principal; 2017-11-29)
PROC: 5A1D70Z Performance of Urinary Filtration, Intermittent, Less than 6 Hours Per Day (ICD-10-PCS; principal; 2017-11-29)
PROC: 5A1D70Z Performance of Urinary Filtration, Intermittent, Less than 6 Hours Per Day (ICD-10-PCS; 2017-12-01)
PROC: 5A1D70Z Performance of Urinary Filtration, Intermittent, Less than 6 Hours Per Day (ICD-10-PCS; 2017-12-04)
PROC: 5A1D70Z Performance of Urinary Filtration, Intermittent, Less than 6 Hours Per Day (ICD-10-PCS; 2017-12-06)
DX: A41.89 Other specified sepsis (principal); N18.6 End stage renal disease; G93.40 Encephalopathy, unspecified; J10.00 Influenza due to other identified influenza virus with unspecified type of pneumonia; J44.0 Chronic obstructive pulmonary disease with (acute) lower respiratory infection; I13.2 Hypertensive heart and chronic kidney disease with heart failure and with stage 5 chronic kidney disease, or end stage renal disease; I50.32 Chronic diastolic (congestive) heart failure; E11.65 Type 2 diabetes mellitus with hyperglycemia; E11.649 Type 2 diabetes mellitus with hypoglycemia without coma; E11.22 Type 2 diabetes mellitus with diabetic chronic kidney disease; E78.5 Hyperlipidemia, unspecified; F17.210 Nicotine dependence, cigarettes, uncomplicated; Z99.2 Dependence on renal dialysis; Z79.4 Long term (current) use of insulin; Z79.82 Long term (current) use of aspirin; Z79.899 Other long term (current) drug therapy; Z88.0 Allergy status to penicillin; Z88.1 Allergy status to other antibiotic agents; Z82.49 Family history of ischemic heart disease and other diseases of the circulatory system; Z83.3 Family history of diabetes mellitus

== ENCOUNTER 2018-02-26 09:22 | Inpatient (IN) | payer OTHER ==
[~2018-02-26] VITALS: Ht 160 cm; Wt 68.0 kg
[~2018-02-26 09:22] MED LIST changes: +BENADRYL25 MG PO; +CEFUROXIME250 MG PO; +LEVAQUIN 250 M250 MG PO; +NIFEDIPINE ER60 M1 PO; +NOVOLIN N100 UNIT/3 SUBQ; +PREDNISONE 10 M10 MG PO; +RENAL CAPS SOFTG1 MG PO; +ZYRTEC10 M4 PO
[2018-02-26 12:29] LABS: ABSOLUTE BASOPHILS 0.1 thou/uL (0.0-0.2); ABSOLUTE EOSINOPHILS 0.2 thou/uL (0.0-0.7); ABSOLUTE LYMPHOCYTES 1.8 thou/uL (0.8-5.3); ABSOLUTE MONOCYTES 0.7 thou/uL (0.0-1.2); ABSOLUTE NEUTROPHILS 6.4 thou/uL (1.6-8.1); BASOPHILS 1.1 %; EOSINOPHILS 2.6 %; HEMATOCRIT 40.3 % (37.0-47.0); HEMOGLOBIN 13.3 gm/dL (12.0-15.0); LYMPHOCYTES 19.7 %; MCH 31.2 pg (26.0-34.0); MCHC 33.1 g/dL (28.0-37.0); MCV 94.4 fL (80.0-100.0); MONOCYTES 7.3 %; MPV 9.6 fl. (7.2-11.1); NUCLEATED RBCS 0 /100WBC; PLATELET COUNT* 334 thou/uL (150-400); POLYS 69.3 %; RBC 4.27 mil/uL (4.20-5.00); RDW-CV 16.3 % (10.5-14.5); WBC 9.2 thou/uL (4.0-11.0)
[2018-02-26 12:35] LABS: CREATININE 2.2 mg/dL (0.6-1.3); POTASSIUM 4.2 mmol/L (3.5-5.1)
[2018-02-26] MEDS ORDERED: CATAPRESS3 TRANSDERM (13:07)
[2018-02-26] MEDS ORDERED: COMBIVENT INH (13:08)
[2018-02-26] MEDS ORDERED: FUROSEMIDE 80 M80 M1 PO (13:09)
[2018-02-26] MEDS ORDERED: HUMALOG100 UNIT/1 SUBQ (13:10)
[2018-02-26] MEDS ORDERED: HYDRALAZINE 2525 MG PO (13:11)
[2018-02-26] MEDS ORDERED: NORCO 5-325 TA1 EACH PO (13:12)
[2018-02-26] MEDS ORDERED: LEVEMIR SUBQ (13:13)
[2018-02-26] MEDS ORDERED: ANTIVERT25 MG PO (13:16)
[2018-02-26 13:29] VITALS: BP 168/54
[2018-02-26 17:22] LABS: HEMATOCRIT 32.5 % (37.0-47.0); HEMOGLOBIN 10.7 gm/dL (12.0-15.0); MCH 31.1 pg (26.0-34.0); MCHC 32.9 g/dL (28.0-37.0); MCV 94.4 fL (80.0-100.0); MPV 9.6 fl. (7.2-11.1); RBC 3.44 mil/uL (4.20-5.00); RDW-CV 16.2 % (10.5-14.5); WBC 10.9 thou/uL (4.0-11.0)
[2018-02-26 17:27] LABS: POTASSIUM 4.2 mmol/L (3.5-5.1)
[2018-02-26 20:00] VITALS: BP 136/31
[2018-02-27 01:00] VITALS: BP 113/23
[2018-02-27 02:00] VITALS: BP 118/28
[2018-02-27 03:18] LABS: URINE BILIRUBIN NEGATIVE (Negative); URINE BLOOD NEGATIVE (Negative); URINE CLARITY CLEAR; URINE COLOR YELLOW; URINE GLUCOSE-RANDOM NEGATIVE (Negative); URINE KETONES NEGATIVE (Negative); URINE LEUKOCYTES-REFLEX NEGATIVE (Negative); URINE NITRITE-REFLEX NEGATIVE (Negative); URINE PROTEIN 1+ (Negative); URINE UROBILINOGEN 0.2 E.U./dl (0.2-1.0)
[2018-02-27 03:26] LABS: CALCIUM 7.7 mg/dL (8.5-10.1); CREATININE 2.5 mg/dL (0.6-1.3); HEMATOCRIT 39.5 % (37.0-47.0); MCH 30.9 pg (26.0-34.0); MCHC 32.4 g/dL (28.0-37.0); MCV 95.5 fL (80.0-100.0); MPV 9.4 fl. (7.2-11.1); POTASSIUM 4.1 mmol/L (3.5-5.1); RBC 4.14 mil/uL (4.20-5.00); RDW-CV 16.3 % (10.5-14.5); WBC 6.1 thou/uL (4.0-11.0)
[2018-02-27 03:46] LABS: HEMOGLOBIN 12.8 gm/dL (12.0-15.0)
--- NOTE | 2018-02-27 06:30 | NUR ---
PATIENT PROGRESSING TOWARDS GOALS. BP REMAINS SOFT. DIASTOLIC BETWEEN 28-32. MAP 60'S. GAVE ONE 500 BOLOUS LAST NIGHT. PT IS ASYMPTOMATIC. LEFT CAROTID, SITE INTACT, NO HEMOTOMA, PATIENT DENIES PAIN. NO N/V. PT HAD 100ML OF URINE OUTPUT THROUGHOUT THE SHIFT. PT SR WITH OCCATIONAL MISSED BEATS. PT TOLERATING THICK LIQUIDS. CALL LIGHT IN PLACE. Q2H TURNS. BED TO LOWEST POSITION. NO VOICED CONCERNS AT THIS TIME. WILL CONTINUE TO MONITOR CLOSEL.
--- NOTE | 2018-02-27 10:10 | NUR ---
WOUND CARE NOTE: CONSULT RECEIVED FOR RIGHT BUTTOCK WOUND. PATIENT'S WOUND IS ACTUALLY ON THE LEFT ISCHIAL TUBEROSITY. WOUND MEASURES 0.9X1X0.3 AND IS A HEALING STAGE 3 PRESSURE ULCER. LILI-WOUND WITH NEW EPITHELIUM. WOUND BED IS MOIST, RED, WITH YELLOW SUBQ TISSUE. GENTLY CLEANSED WOUND WITH CLEANSER, PATTED DRY. SKIN PREPPED. APPLIED OPTIFOAM AG AND SECURED WITH TEGADERM. PATIENT TOLERATED DRESSING WELL. EDUCATED PATIENT AND FAMILY MEMBERS ON TURNING/OFFLOADING AND DRESSING SELECTION, COMMUNICATED UNDERSTANDING. PATIENT ADMITS TO SITTING A LOT. ALSO IS IN DIALYSIS FOR 3 HOURS AND SITS DURING HER TREATMENT. ORDERED PATIENT A WAFFLE CUSHION. RECOMMEND TURN Q2 HOURS KEEP OFF WOUND ENCOURAGE GOOD NUTRITION AND HYDRATION TIGHT BLOOD GLUCOSE CONTROL
--- NOTE | 2018-02-27 10:40 | NUR ---
PT ADMITTED YESTERDAY AFTER CAROTID ENDARTERECTOMY. PT SAID SHE IS FEELING GOOD THIS MORNING AND HOPES TO GO HOME LATER TODAY. PT LIVES AT HOME WITH HER . SHE DIALYZES T--SUN AT [facility], SHE SAID THIS WEEK SHE DIALYZED SUNDAY DUE TO HER SURGERY AND THEN WILL GO TO HER OUTPT DIALYSIS TOMORROW. PT ALREADY HAS A FOLLOW UP APPT WITH DR TOWNSEND FOR HER POST-OP VISIT, SAYS HE DOESN'T REMEMBER WHEN IT IS, BUT HE HAS THE APPT CARD AT HOME. PT DENIES ANY DISCHARGE NEEDS.
--- NOTE | 2018-02-27 11:09 | NUR ---
Nutrition: Pt has pressure ulcer on buttock. Per ICU rounds, it is healing, dry. Likely go to wound clinic after discharge. Wt: 150#. Eating >75% of meals. Albumin 1.9. Possible discharge today, if pt is doing well. GOALS: continued good po intake, good HBV protein intake. Low risk.
[2018-02-27 11:52] VITALS: BP 138/32
[2018-02-27 12:00] VITALS: BP 130/37
[2018-02-27 14:00] VITALS: BP 143/38
[2018-02-27 16:00] VITALS: BP 130/37
--- NOTE | 2018-03-03 06:51 | OP ---
[facility] [address] [place] [address] OPERATIVE REPORT Name: OWEN MARCANO Room: [address] IN M.R.#: [id number] Admission: 02/26/18 Attend Phys: Johny Franco Discharge: 02/27/18 Date of : 40 Report #: [id number] THIS REPORT FOR: //name// CC: Tima Read DATE OF SERVICE: 02/26/2018 PREOPERATIVE DIAGNOSIS: Severe left internal carotid artery stenosis. POSTOPERATIVE DIAGNOSIS: Severe left internal carotid artery stenosis. PROCEDURE: 1. Left carotid endarterectomy with patch angioplasty. 2. Intraoperative ultrasound with interpretation. FINDINGS ON ULTRASOUND: 1. Normal waveform velocity identified within the left common and internal carotid arteries. 2. Patent flow identified in external carotid artery on color flow imaging. 3. No flaps or defects identified in the posterior wall on mejia-scale imaging. SURGEON: Tai Conteh MD STAPLE SHEAR OPERATOR: ERNA Dean COMPLICATIONS: None. ESTIMATED BLOOD LOSS: 100 mL. ANESTHESIA: General. COMPLICATIONS: None. SPECIMEN: Plaque. INDICATIONS FOR PROCEDURE: The patient is a very pleasant 77-year-old white female. I performed a right carotid enterectomy on her late last year. She also has severe stenosis on the left. We plan to proceed with left carotid endarterectomy today. Informed consent was obtained from the patient with risks including but not limited to bleeding, infection, need for further surgery, pain, , heart attack, stroke, cranial nerve injury. She understood these risks and was agreeable to proceed. DESCRIPTION OF PROCEDURE: The patient was taken to the OR and placed in supine [facility] [address] [place] [address] OPERATIVE REPORT Name: OWEN MARCANO SIMON Room: [address] IN .R.#: [id number] Admission: 02/26/18 Attend Phys: Johny Franco Discharge: 02/27/18 Date of : 40 Report #: [id number] position. After adequate general anesthesia was initiated, timeout was performed. The patient's left neck and chest were prepped and draped in usual sterile fashion. I created a transverse incision to the patient's left neck. Sharp and blunt dissection were carried down along the anterior border of sternocleidomastoid muscle. I divided the facial vein between ties and clips. I entered the carotid sheath. I controlled the common carotid as well as internal and external carotid artery branches. I heparinized the patient at this point in time. I created a longitudinal arteriotomy on the common carotid artery, extended onto the internal carotid artery. I placed a 10 shunt without difficulty. I performed endarterectomy in standard fashion using a Loyal elevator and a pair of pickups. I performed eversion endarterectomy of the external carotid artery. I got a feathered edge leading into the internal carotid artery. I did place a single tacking stitch. This was a 7-0 Prolene. I closed my arteriotomy with a bovine pericardial patch and running 6-0 Prolene suture. At the completion of the repair, there was adequate hemostasis. Excellent blood flow into the internal and external carotid artery. I performed intraoperative ultrasound. Please see findings above. We corrected heparin with protamine. Controlled bleeding as needed with ties, clips and electrocautery. We closed the wound in multiple layers using 2-0 Vicryl, 3-0 Vicryl Stratafix for skin. Incision was dressed with Dermabond. The patient was taken alert and awake to recovery room in good condition. All needle and instrument counts correct at the end of the case. The patient was neurologically intact, moving all extremities without evidence of TIA or stroke. <ELECTRONICALLY SIGNED> By: Tai Conteh MD 03/03/18 0651 [id number] [id number] Conteh MD /nt
[2018-05-01] MEDS ORDERED: MAGOX 400400 MG PO (09:59)
[2018-07-21] MEDS ORDERED: CATAPRESS3 TRANSDERM (10:26)
== END 2018-02-27 16:50 | disposition home or self-care (01) | DRG 37 ==
LOC: M.PRE 09:22 → M.ICU 12:00 → M.TBA 12:00 → M.PRE 13:04 → M.ICU 19:12
PROVIDERS: Surgery Vascular Surgery; ADMIT Internal Medicine
PROC: 03CL0ZZ Extirpation of Matter from Left Internal Carotid Artery, Open Approach (ICD-10-PCS; principal; 2018-02-26)
PROC: 03UL0JZ Supplement Left Internal Carotid Artery with Synthetic Substitute, Open Approach (ICD-10-PCS; principal; 2018-02-26)
DX: I65.22 Occlusion and stenosis of left carotid artery (principal); N18.6 End stage renal disease; I12.0 Hypertensive chronic kidney disease with stage 5 chronic kidney disease or end stage renal disease; E11.22 Type 2 diabetes mellitus with diabetic chronic kidney disease; E78.5 Hyperlipidemia, unspecified; F17.210 Nicotine dependence, cigarettes, uncomplicated; Z96.1 Presence of intraocular lens; Z99.2 Dependence on renal dialysis; Z88.8 Allergy status to other drugs, medicaments and biological substances; Z79.899 Other long term (current) drug therapy; Z88.0 Allergy status to penicillin; Z79.82 Long term (current) use of aspirin; Q38.3 Other congenital malformations of tongue

== ENCOUNTER 2018-03-08 22:35 | Inpatient (IN) | payer OTHER ==
[~2018-03-08] VITALS: Ht 160 cm; Wt 56.7 kg
[~2018-03-08 22:35] MED LIST changes: +ANTIVERT25 MG PO; +CATAPRESS3 TRANSDERM; +COMBIVENT INH; +FUROSEMIDE 80 M80 M1 PO; +HUMALOG100 UNIT/1 SUBQ
[2018-03-08 22:44] VITALS: BP 162/49
[2018-03-08 23:25] LABS: ABSOLUTE EOSINOPHILS 0.2 thou/uL (0.0-0.7); ABSOLUTE LYMPHOCYTES 1.4 thou/uL (0.8-5.3); ABSOLUTE NEUTROPHILS 5.7 thou/uL (1.6-8.1); BASOPHILS 0.6 %; EOSINOPHILS 1.9 %; HEMATOCRIT 33.9 % (37.0-47.0); HEMOGLOBIN 11.1 gm/dL (12.0-15.0); LYMPHOCYTES 16.8 %; MCH 31.4 pg (26.0-34.0); MCHC 32.9 g/dL (28.0-37.0); MCV 95.5 fL (80.0-100.0); MONOCYTES 12.3 %; MPV 9.3 fl. (7.2-11.1); NUCLEATED RBCS 0 /100WBC; PLATELET COUNT* 325 thou/uL (150-400); POLYS 68.4 %; RBC 3.55 mil/uL (4.20-5.00); RDW-CV 16.1 % (10.5-14.5); WBC 8.3 thou/uL (4.0-11.0)
[2018-03-08 23:30] LABS: ANION GAP 6 mmol/L (7-16); BUN 14 mg/dL (7-18); CALCIUM 8.5 mg/dL (8.5-10.1); CHLORIDE 97 mmol/L (98-107); CO2 31 mmol/L (21-32); CREATININE 2.2 mg/dL (0.6-1.3); GLUCOSE 365 mg/dL (70-99); POTASSIUM 4.2 mmol/L (3.5-5.1); SODIUM 134 mmol/L (136-145)
[2018-03-08 23:41] LABS: ALBUMIN 2.7 g/dL (3.4-5.0); ALKALINE PHOSPHATASE 108 U/L (46-116); NT-PRO BRAIN NAT PEPTIDE 3999 pg/mL (<300); SGOT 24 U/L (15-37); SGPT 17 U/L (30-65); TOTAL BILIRUBIN 0.4 mg/dL (<0.1-1.0); TOTAL PROTEIN 6.3 g/dL (6.4-8.2); TROPONIN-I LEVEL <0.06 ng/mL (<0.06)
[2018-03-08 23:55] LABS: INR 1.2; PROTIME 11.5 Seconds (9.20-11.50)
[2018-03-09 01:20] VITALS: BP 136/48
[2018-03-09 02:00] VITALS: BP 155/45
--- NOTE | 2018-03-09 05:50 | NUR ---
ASSUMED CARE OF PATIENT AT 0200 THE PATIENT is admitted med/surg status and not being monitored on THE telepack O2 SAT IS MAINTAINED ON 2 L NC THE PATIENT DENIES SOA AT ADMIT WITH AMBULATION AND AT REST SHE STATES THIS HAS IMPROVED GREATLY SINCE SHE CAME INTO ER CONTINUES TO BE UP AD LAW SHE HAS A PATCH ON THE LEFT SHOULDER REPORTS IT IS CLONIDINE DATE TO BE CHANGED WRITTEN ON IT 03/14/18 DIALYSIS CATH LINE FROM RIGHT CX SUBCLAVIAN REPORTS ROUTINE DDAYS ARE SUNDAY,SUNDAY, AND SUNDAY, SHE STATES SHE IS NOT SUPPOSED TO HAVE IT DONE THIS WEEK DUE TO OUTPATIENT PLAN TO SEE IF SHE TOLERATES IN HOPES OF DECREASING OR DISCONTINUING DIALYSIS SHE STATES SHE WILL NOT GO TODAY DUE TO OUTPATIENT PLAN WITH MILD EXCORIATION MOSTLY HEALED DECUB ON BUTTOCKS DOCUMENTED MEPILEX PLACED FOR INTEGRITY SAFETY INTERVENTIONS CONTINUE BED LOWERED WHEELS LOCKED CALL LIGHT IN REACH SIDE RAILS UP REPORT TO BE GIVEN TO ONCOMING FRANDY
[2018-03-09 07:04] LABS: HEMATOCRIT 31.2 % (37.0-47.0); HEMOGLOBIN 10.2 gm/dL (12.0-15.0); MCH 31.9 pg (26.0-34.0); MCHC 32.9 g/dL (28.0-37.0); MPV 9.1 fl. (7.2-11.1); RBC 3.21 mil/uL (4.20-5.00); RDW-CV 15.6 % (10.5-14.5)
[2018-03-09 07:14] LABS: ALBUMIN 2.4 g/dL (3.4-5.0); CALCIUM 8.1 mg/dL (8.5-10.1); CREATININE 2.5 mg/dL (0.6-1.3); POTASSIUM 4.5 mmol/L (3.5-5.1); TOTAL BILIRUBIN 0.4 mg/dL (<0.1-1.0); TOTAL PROTEIN 5.7 g/dL (6.4-8.2)
[2018-03-09 08:45] VITALS: BP 168/50
--- NOTE | 2018-03-09 08:45 | NUR ---
ASSUMED PT. CARE AND RECEIVED REPORT AT 0730. PT A/OX4, VSS, PT. MED/SURG STATUS. PT. DENIES CURRENT PAIN. STATES SOA IS MUCH IMPROVED, BUT STILL UNABLE TO TAKE DEEP BREATH. ON 2L NC @ 98%. FULL ASSESSMENT COMPLETED, REFER TO CHARTING. VQ SCAN TO BE DONE THIS A.M., RECEIVED CALL FROM [employer] WILL BE HERE WITHIN THE HOUR. PT. SPOUSE AT BEDSIDE. WILL CONTINUE WITH PLAN OF CARE.
--- NOTE | 2018-03-09 11:20 | NUR ---
NEPHROLOGY CONSULTED ON PT. DR. JONES CALLED BACK, UPDATE GIVEN IN PT. TO INCLUDE LABS, CURRENT HOLD OF DIALYSIS TODAY, AND PT. NEED FOR CTA IF OKAY. INITIALLY RECEIVED ORDERS TO DO DIALYSIS TODAY AND IF NEEDED FOR TREATMENT PLAN TO DO CTA. DISCUSSED WITH PT. AND DR. SHI. RECEIVED CALL BACK FROM DR. JONES APPROX. 5 MINUTES LATER. SHE STATED SHE REVIEWED PT. RECORDS AND WILL HOLD OFF ON DIALYSIS TODAY. IF NEEDING TO CTA FOR TREATMENT RECOMMENDATIONS THEN CONTINUE, DOES NOT WANT FLUID BOLUS OR DIALYSIS POST CTA. SHE WOULD SEE PT. IN MORNING AND HAVE LABS DONE THEN. DR. SHI AND PT. AGAIN UPDATED ON NEW PLAN OF CARE. DR. SHI DISCUSSED WITH PT. AND SPOUSE AT BEDSIDE. DR. SHI DECIDED TO CANCEL CTA AND CONSULTED PULMONARY AT THIS TIME FOR FURTHER EVAL.
[2018-03-09 16:00] VITALS: BP 106/48
--- NOTE | 2018-03-09 19:02 | NUR ---
PULMONARY INTO SEE PT., NON CONTRAST CT ORDERED. PER DR. WONG HE FEELS THIS IS MORE COPD, NOT PE OR MASS. WILL CONTINUE WITH STERIODS AND ANTIBIOTICS. PT. AND SPOUSE UPDATED ON CURRENT PLAN OF CARE. UP TO BSC X 4 TODAY WITH APPROX. 400ML OUT. BLADDER SCANNED X2 POST VOID FIRST SHOWED 380ML AND SECOND SHOWED 342. PT. ADAMANT THAT SHE WOULD NOT BE STRAIGHT CATHED OR HAVE CHONG PLACED TO DRAIN BLADDER. HOURLY ROUNDING COMPLETED THROUGH OUT THE DAY FOR PT. SAFETY.
[2018-03-09 19:22] LABS: URINE BILIRUBIN NEGATIVE (Negative); URINE BLOOD NEGATIVE (Negative); URINE CLARITY CLEAR; URINE COLOR YELLOW; URINE GLUCOSE-RANDOM 2+ (Negative); URINE KETONES TRACE (Negative); URINE LEUKOCYTES-REFLEX NEGATIVE (Negative); URINE NITRITE-REFLEX NEGATIVE (Negative); URINE PROTEIN TRACE (Negative); URINE UROBILINOGEN 0.2 E.U./dl (0.2-1.0)
[2018-03-09 20:00] VITALS: BP 184/70
[2018-03-10 04:00] VITALS: BP 112/45
[2018-03-10 04:56] LABS: HEMATOCRIT 34.8 % (37.0-47.0); HEMOGLOBIN 11.4 gm/dL (12.0-15.0); MCH 31.2 pg (26.0-34.0); MCHC 32.7 g/dL (28.0-37.0); MCV 95.4 fL (80.0-100.0); MPV 9.4 fl. (7.2-11.1); NUCLEATED RBCS 0 /100WBC; PLATELET COUNT* 378 thou/uL (150-400); RBC 3.65 mil/uL (4.20-5.00); RDW-CV 16.4 % (10.5-14.5)
[2018-03-10 05:08] LABS: CALCIUM 8.8 mg/dL (8.5-10.1); CREATININE 2.9 mg/dL (0.6-1.3); POTASSIUM 4.8 mmol/L (3.5-5.1)
--- NOTE | 2018-03-10 06:29 | NUR ---
ASSUMED CARE OF PATIENT AT 1900 THE PATIENT REMAINS MEDSURG STATUS 02 SAT MAINTAINED ON 2 L NC CONTINUES TO BE UP AD LAW OF TO THE ROUTINE REGIMEN CONTINUES TO BE EFFECTIVE FOR SX MANAGEMENT PATIENT PROGRESSING TOWARDS GOALS NIGHT UNEVENTFUL SINGLE OCCURRENCE OF HYPOGLYCEMIA RESOLVED WITH 120 CC OF JUICE AND SHIMA CRACKER PATIENT REMAINED ASYMPTOMATIC THROUGHOUT OCCURANCE SPOUSE WAS AT BEDSIDE CONCERNS DENIED BY PATIENT AND SPOUSE SAFETY INTERVENTIONS CONTINUE BED LOWERED WHEELS LOCKED CALL LIGHT IN REACH SIDE RAILS UP REPORT TO BE GIVEN TO ONCOMING RN
[2018-03-10 06:45] LABS: ABSOLUTE LYMPHOCYTES 0.9 thou/uL (0.8-5.3); ABSOLUTE MONOCYTES 0.2 thou/uL (0.0-1.2); ABSOLUTE NEUTROPHILS 8.9 thou/uL (1.6-8.1)
[2018-03-10 06:46] LABS: ANISOCYTOSIS 1+; PLATELET ESTIMATE ADEQUATE; POIKILOCYTOSIS 1+; POLYCHROMASIA 1+
[2018-03-10 08:00] VITALS: BP 132/48
--- NOTE | 2018-03-10 11:02 | NUR ---
PATIENT CURRENTLY HAVING US OF LE. REPORT GIVEN TO HORACIO FOR TRANSFER TO [facility] ROOM 113. PATIENT AOX4 AND VITAL SIGNS STABLE. HOURLY ROUNDING COMPETED FOR PATIENT SAFETY. PATINET UTILIZING 2L PER NASAL CANULA TO MAINTAIN O2 SATURATION GREATER THAN 90%.
[2018-03-10 12:00] VITALS: BP 120/44
--- NOTE | 2018-03-10 15:50 | EKG ---
[place] [address] ELECTROCARDIOGRAM REPORT Name: OWEN MARCANO Room: [address] IN .R.#: [id number] Admission: 03/09/18 Attend Phys: Kevon Bunn MD Discharge: Date of : 40 Report #: [id number] THIS REPORT FOR: //name// [facility] ED Test Date: 2018-03-08 Test Time: 22:48:22 Pat Name: OWEN MARCANO Department: Room: Gender: F Repack Room Worker: : 1940 Requested By: Nancy Madrid Order Number: [id number] MD: Jesus Erwin Measurements Intervals [place] Rate: 90 P: 72 NE: 239 QRS: -24 QRSD: 129 T: 67 QT: 405 QTc: 496 Interpretive Statements Sinus rhythm Prolonged NE interval Left bundle branch block Compared to ECG 11/28/2017 09:15:01 Left bundle-branch block now present Ectopic atrial rhythm no longer present Atrial premature complex(es) no longer present Myocardial infarct finding no longer present Electronically Signed On 03-10-2018 15:50:09 CDT by Jesus Erwin [email or web address] <ELECTRONICALLY SIGNED> By: Jesus Erwin MD, FACC 03/10/18 1550 [id number] [id number] Jesus Erwin MD, FACC /EPI
[2018-03-10 16:00] VITALS: BP 104/47
--- NOTE | 2018-03-10 19:03 | NUR ---
PATIENT RESTING IN BED. AT BEDSIDE. DECENT APPETITE. VITAL SIGNS STABLE AND PATIENT IN NOAPPARET DISTRESS AT THIS TIME. POSSIBLE NEED FOR DIALYSIS, TO BE DETERMINED BY INSTRUMENTAL MUSIC TEACHER. LEFT ARM FISTULA, USING TEMPORARY DIALYSOIS PORT. 20G IN R AC. 2.0 LITERS NASAL CANULA. HOURLY ROUNDING FOR PATINET SAFETY.
[2018-03-10 20:00] VITALS: BP 143/83
[2018-03-11 00:39] VITALS: BP 144/49
[2018-03-11 03:31] VITALS: BP 139/86
--- NOTE | 2018-03-11 05:11 | NUR ---
PT CARE ASSUMED AFTER REPORT. ASSESSMENT COMPLETE. SR ON MONITOR. DENIES PAIN. O2 2L NC. FALL PRECAUTIONS IN PLACE INCLUDING BED ALARM. CALL LIGHT IN REACH. BED IN LOWEST POSITION. PROGRESSING TOWARDS GOALS.
[2018-03-11 05:22] LABS: ABSOLUTE LYMPHOCYTES 1.1 thou/uL (0.8-5.3); ABSOLUTE MONOCYTES 0.8 thou/uL (0.0-1.2); ABSOLUTE NEUTROPHILS 14.4 thou/uL (1.6-8.1); HEMATOCRIT 32.5 % (37.0-47.0); HEMOGLOBIN 10.7 gm/dL (12.0-15.0); LYMPHOCYTES 6.8 %; MCH 31.5 pg (26.0-34.0); MCHC 33.1 g/dL (28.0-37.0); MONOCYTES 4.8 %; NUCLEATED RBCS 0 /100WBC; PLATELET COUNT* 368 thou/uL (150-400); POLYS 88.4 %; RBC 3.42 mil/uL (4.20-5.00); RDW-CV 16.2 % (10.5-14.5); WBC 16.3 thou/uL (4.0-11.0)
[2018-03-11 05:46] LABS: ALBUMIN 2.4 g/dL (3.4-5.0); CALCIUM 8.3 mg/dL (8.5-10.1); CREATININE 3.8 mg/dL (0.6-1.3); POTASSIUM 4.8 mmol/L (3.5-5.1); TOTAL BILIRUBIN 0.3 mg/dL (<0.1-1.0); TOTAL PROTEIN 5.7 g/dL (6.4-8.2)
[2018-03-11 08:00] VITALS: BP 132/32
[2018-03-11 11:20] VITALS: BP 145/32
--- NOTE | 2018-03-11 12:34 | NUR ---
ASSUMED PT CARE AT 0700 PT IS ALERT AND ORIENTED X 4 PT DENIES PAIN OR SOA ON RA, PT IS UP WITH SBA PT IS NOT A FALL RISK PT STATES MORE SECURE WHEN STAFF IS IN ROOM WHEN AMBULATING, PT HAS DIALYSIS ON Sunday AND SUNDAY DIALYSIS NURSE CALLED TO INFORM THIS NURSE THAT ORDERS WERE RECEIVED FROM NEPHROLOGY TO DIALYIZE TODAY FOR 2.5HOURS TAKE 2L OFF DIALYSIS NURSE WILL BE AT FACILITY AFTER 1300, PT IS SR ON THE MONITOR, PT HAS NO SIGNS OF EDEMA NOTED, WILL CONTINUE TO MONITOR
[2018-03-11 20:00] VITALS: BP 143/42
[2018-03-12] VITALS: BP 141/49
[2018-03-12 04:00] VITALS: BP 118/43
--- NOTE | 2018-03-12 05:11 | NUR ---
PT CARE ASSUMED AFTER REPORT. ASSESSMENT COMPLETE. SR/1ST DEGREE/PVC ON MONITOR. DENIES PAIN. UP WITH WALKER AND ASSIST. FALL PRECAUTIONS IN PLACE INCLUDING BED ALARM. CALL LIGHT IN REACH. BED IN LOWEST POSITION. NO URINE OUT PUT OVERNIGHT. SLOW TO PROGRESS TOWARDS GOALS.
[2018-03-12 05:12] LABS: ABSOLUTE LYMPHOCYTES 0.9 thou/uL (0.8-5.3); ABSOLUTE MONOCYTES 0.3 thou/uL (0.0-1.2); ABSOLUTE NEUTROPHILS 11.2 thou/uL (1.6-8.1); HEMATOCRIT 35.7 % (37.0-47.0); HEMOGLOBIN 11.6 gm/dL (12.0-15.0); LYMPHOCYTES 7.2 %; MCH 31.2 pg (26.0-34.0); MCHC 32.5 g/dL (28.0-37.0); MONOCYTES 2.4 %; MPV 8.9 fl. (7.2-11.1); NUCLEATED RBCS 0 /100WBC; PLATELET COUNT* 377 thou/uL (150-400); POLYS 90.4 %; RBC 3.72 mil/uL (4.20-5.00); RDW-CV 16.3 % (10.5-14.5); WBC 12.4 thou/uL (4.0-11.0)
[2018-03-12 05:23] LABS: CALCIUM 8.2 mg/dL (8.5-10.1); CREATININE 2.7 mg/dL (0.6-1.3); POTASSIUM 5.4 mmol/L (3.5-5.1)
[2018-03-12 05:30] LABS: PREALBUMIN 19.6 mg/dL (18.0-35.7)
[2018-03-12 08:00] VITALS: BP 150/54
--- NOTE | 2018-03-12 08:19 | CON ---
[address] [address] CONSULTATION Name: OWEN MARCANO Room: [address] IN M.R.#: [id number] Admission: 03/09/18 Attend Phys: Kevon Bunn MD Discharge: Date of : 40 Report #: [id number] THIS REPORT FOR: //name// CC: Kevon Patiño DATE OF SERVICE: 03/09/2018 REQUESTING PHYSICIAN: Dr. Bunn. INDICATION FOR CONSULTATION: Shortness of breath/abnormal V/Q scan. HISTORY OF PRESENT ILLNESS: This is a 77-year-old female, past medical history includes a history of chronic renal failure. The patient is on hemodialysis. The patient does, however, urinate and attempts are being made right now to take her off hemodialysis. The patient also does have a history of hypertension and diabetes. She was admitted here previously in November 2017. There is a CT chest, which was performed at that time, which shows a mass-like infiltrate in the left lung. There is some cavitation present in this infiltrate as well. The patient's antibiotics at that time were managed by the infectious disease service. More recently, the patient has had a left carotid endarterectomy. The patient has now presented again today. Presentation is with shortness of breath. The patient reports that this has been getting worse for the last several days. She is coughing. There is some rattling mucus in her throat; however, she is not bringing up any sputum. There is no chest pain. There are no upper respiratory complaints. There is no swelling of lower extremities. There is no calf pain. There are some occasional joint pains, which are not a major complaint for her. The patient does not report a fever. She is not complaining of heartburn. She answered to the negative for 12 questions for review of systems except as mentioned above. The patient has had a chest x-ray done again, which showed a radiopaque density in the left lung. It is difficult to compare accurately with previous chest x-rays as this opacity is not clearly seen on the x-rays, but as noted, there is a significant finding on the last CT chest. The V/Q scan performed as well, which shows some matched defects, in other words, the V/Q scan is nondiagnostic. REVIEW OF SYSTEMS: As mentioned is negative for 12 points except as mentioned above. PAST MEDICAL HISTORY: Chronic renal failure, on hemodialysis. She is urinating. I am told that there are attempts being made to take her off hemodialysis, hypertension, diabetes, COPD. The patient has used inhalers p.r.n., but is not taking any medications for COPD regularly, recent admission with influenza A in November to this hospital as mentioned above, [place] [address] CONSULTATION Name: OWEN MARCANO Room: [address] IN .R.#: [id number] Admission: 03/09/18 Attend Phys: Kevon Bunn MD Discharge: Date of : 40 Report #: [id number] left-sided carotid endarterectomy, hyperlipidemia, tonsil surgery, foot surgery, lens implants, stomach surgery. I do not have details of stomach surgery available at this time. SOCIAL HISTORY: He is an active smoker up to a pack a day, has been smoking for several decades. There is no known history of heavy alcohol use or illegal drug use. CURRENT MEDICATIONS: List is in [email or web address], reviewed. HOME MEDICATIONS: List also in [email or web address] reviewed. FAMILY HISTORY: Noncontributory. PHYSICAL EXAMINATION: GENERAL: She is alert, awake and oriented. VITAL SIGNS: Has a pulse of 83 and a blood pressure of 168/50. She has been saturating at 98%. She is on 2 liters nasal cannula, respiratory rate is mildly elevated to 20. She is afebrile. Temperature was 37.1 this morning. HEENT: Head is normocephalic and atraumatic. Pupils are equal and reactive. There is no throat erythema. NECK: Does not show raised JVP. There is a recent surgical incision on the left side. There are no large lymph nodes palpated in her neck. CHEST: Symmetrical expansion on inspection and palpation. On auscultation, there are loud expiratory wheezes bilaterally. Expirations are prolonged. I do not hear any added sounds. There are some inspiratory wheezes as well. HEART: Regular. There is no murmur. ABDOMEN: Soft and nontender. EXTREMITIES: Lower extremities show no edema. There are some varicose veins noted. There is no calf tenderness. SKIN: Dry and intact. NEUROLOGICAL: Moves all extremities bilaterally equally and spontaneously. There is no focal deficit identified. The patient has had a chest x-ray as well as a V/Q scan performed, this is as discussed above. The patient's CBC as well as chemistries are in [email or web address], these are reviewed. There is significant hyperglycemia noted. The D-dimer was elevated. ASSESSMENT AND PLAN: 1. Shortness of breath. The patient appears to have chronic obstructive pulmonary disease. She appears to be in an exacerbation of chronic obstructive pulmonary disease. This is the etiology of her current symptoms. She does have a mass-like infiltrate in her left lung as well, which does need to be evaluated further. Also, the patient's V/Q scan is nondiagnostic; however, my suspicion of a pulmonary embolism is not high at this time. I therefore do not recommend [address] [place] [address] CONSULTATION Name: OWEN MARCANO Room: [address] ADM IN M.R.#: [id number] Admission: 03/09/18 Attend Phys: Kevon Bunn MD Discharge: Date of : 40 Report #: [id number] performing a CTA chest as the risk of IV dye injury is high. I would, however, do venous Dopplers. If the patient's respiratory status worsens, then suggest repeating a 2D echo to reevaluate the right heart pressures. 2. Chronic obstructive pulmonary disease exacerbation. I agree with Solu-Medrol as well as nebulized bronchodilators as currently prescribed. The patient may need a more prolonged course of steroids. I agree with current therapy. The patient has developed significant hyperglycemia. As a result, may need more insulin. 3. Cavitary pulmonary infiltrate/lung mass. This is a radiopaque density noted in the left lung on the CT performed last year as well; however, the mass-like infiltrate seen this November appears to be in a different position, which makes it more likely that this is secondary to an infection than a malignancy. Malignancy, however, cannot be completely ruled out at this time. I would like to do another CT and see how this has evolved, this will be without contrast. In the meantime, we will do more cultures and serologies. The patient is on Levaquin. I will go ahead and give her 500 mg IV extra Levaquin now for a total of 750 today. We will reassess antibiotics in the morning with CT chest results. 4. Chronic renal failure, on dialysis, see further discussion above. Thanks for this consultation. <ELECTRONICALLY SIGNED> By: Radha De La Rosa MD 03/12/18 0819 1609 2058Abetina Corbin MD /nt
--- NOTE | 2018-03-12 10:00 | NUR ---
ASSUMED CARE OF PT AFTER REPORT. PT IS ALERT AND ORIENTED X4. VITAL SIGNS TAKEN AND RECORDED. PHYSICAL ASSESSMENT COMPLETED AND CHARTED. SR 1ST DEG ON TELE. PT ON RA. DENIES ANY PAIN OR DISCOMFORT AT THIS TIME. CALL LIGHT WITHIN REACH. WENT FOR DIALYSIS AT 0900. WILL CONTINUE TO MONITOR PT .
--- NOTE | 2018-03-12 12:57 | NUR ---
Pt is A&O. Resides at home with her . Independent with ADLs. No DME. Pt is current at [facility] on a schedule. No hx of HH. Hx of SNF at [facility]. Pt plans to return home at ct. CM will fax flow sheets to [facility] at ct, [phone].
--- NOTE | 2018-03-12 16:20 | 2DMMODE ---
[place] [address] 2 D/M-MODE ECHOCARDIOGRAM Name: OWEN MARCANO Room: [facility] IN [facility]#: [id number] Admission: 03/09/18 Attend Phys: Kevon Bunn, Discharge: Date of : 40 Date of Service: 03/12/18 1620 Report #: [id number] THIS REPORT FOR: //name// APPROVED REPORT Study performed: 03/12/2018 14:59:17 EXAM: Limited 2D Patient Location: In-Patient Room #: 224 Status: routine BSA: 1.58 HR: 81 bpm BP: 118/43 mmHg Rhythm: NSR Other Information Study Quality: Good Indications Respiratory distress Left Ventricle The left ventricle is normal size. There is normal LV segmental wall motion. There is normal left ventricular wall thickness. The left ventricular systolic function is normal. The left ventricular ejection fraction is within the normal range. LVEF is 55-60%. Right Ventricle The right ventricle is normal size. The right ventricular systolic function is normal. Atria The left atrium size is normal. The right atrium size is normal. Aortic Valve The aortic valve is normal in structure. Mitral Valve The mitral valve is normal in structure. Tricuspid Valve The tricuspid valve is normal in structure. Pulmonic Valve [address] [address] 2 D/M-MODE ECHOCARDIOGRAM Name: OWEN MARCANO SIMON Room: [address] IN M.R.#: [id number] Admission: 03/09/18 Attend Phys: Kevon Bunn, Discharge: Date of : 40 Date of Service: 03/12/181619 Report #: [id number] Pulmonic valve is not well visualized. Great Vessels IVC is normal in size and collapses >50% with inspiration. Pericardium There is no pericardial effusion. <Conclusion> LVEF is 55-60%. The right ventricle is normal size. <ELECTRONICALLY SIGNED> By: Eliseo Owens MD, FACC 03/12/181619 19 19 Eliseo Owens MD, FACC /INF
--- NOTE | 2018-03-12 18:34 | NUR ---
RECEIVED PT FROM DIALYSIS [id number]. HAD REMOVED 1L FROM DIALYSIS. PT FELT WEAK RIGHT AFTER DIALYSIS BUT AFTER AN HOUR CAN WALK WITH 1 ASSIST. PER DIALYSIS NURSE, HER PRIMARY CARE DOCTOR CLAIMED THAT SHE CAN GO HOME IF SHE IS FEELING OKAY AND VITALS ARE STABLE. VERIFIED TO DR. SHI THRU PHONE REGARDING DISCHARGE AND CLAIMED WILL WAIT UNTIL TOMORROW. STILL ON RA. SR ON TELE. DENIES PAIN OR DISCOMFORT. CALL LIGHT WITHIN REACH. WILL CONTINUE TO MONITOR PT.
[2018-03-12 20:00] VITALS: BP 120/44
[2018-03-13 00:12] VITALS: BP 135/51
[2018-03-13 04:27] VITALS: BP 129/42
--- NOTE | 2018-03-13 06:53 | NUR ---
PATIENT PROGRESSING TOWARDS GOALS: PATIENT REMAINS ON ROOM AIR WITH O2 SATS >92%. STREET CAR INSPECTOR IN PLACE TRACING SR, 1AVB. PATIENT DENIES PAIN AND DISCOMFORT. HOURLY ROUNDING OBSERVED. CALL LIGHT WITHIN REACH.
[2018-03-13 08:00] VITALS: BP 151/58
[2018-03-13 10:25] VITALS: BP 151/58
--- NOTE | 2018-03-13 11:42 | NUR ---
ASSUMED CARE OF PATIENT AFTER REPORT. PT IS ALERT AND ORIENTED X4. VITAL SIGNS TAKEN AND RECORDED. PHYSICAL ASSESSMENT COMPLETED AND CHARTED. PT ON ROOM AIR. PT ON SR 1ST DEG WITH PVC'S ON TELE. UP WITH STANDBY ASSIST.DENIES PAIN OR DISCOMFORT AT THIS TIME. CALL LIGHT WITHIN REACH. WILL CONTINUE TO MONITOR PT.
[2018-03-13] MEDS ORDERED: LEVAQUIN 250 M250 MG PO (11:49)
[2018-03-13] MEDS ORDERED: PREDNISONE 10 M10 M1 PO (11:51)
[2018-03-13] MEDS ORDERED: PROTONIX40 M1 PO (11:52)
[2018-03-13 12:10] VITALS: BP 127/48
--- NOTE | 2018-03-13 13:17 | NUR ---
ORDERS RECEIEVED FOR DISCHARGE. IV IN RIGHT FOREARM DICSONTINUED ALONG WITH HER SOLDER TECHNICIAN. D/C EDUCATION AND TEACHING GIVEN. WRITTEN EDUCATION AND SCRIPTS GIVEN. ALL QUESTIONS AND CONCERNS ADDRESSED. LEFT BUTTOCKS CLEANE DWITH WOUND WASH AND FOAM DRESSING REAPPLIED. PICTURES OBTAINED AND PLACED ON CHART FOR VIEWING. BELONGINGS PACKED AND ACCOUNTED FOR PATIENT AND . PT ESCORTED PER TECH VIA WHEELCHAIR AT 1320 TO VEHICLE WITH . NO PROBLEMS TO NOTE AT TIME OF DISCHARGE.
--- NOTE | 2018-03-13 13:20 | NUR ---
CONTINUE TO FOLLOW, PT HAS DC ORDERS FOR TODAY. MET WITH PT, SHE DENIES ANY DC NEEDS. PLANS TO RETURN HOME WTIH SPOUSE. STATES HE CAN ASSIST WITH HER NEEDS AND TAKES HER TO DIALYSIS. CALLED AND FAXED CLINICAL INFO AND FLOW SHEETS TO [facility]
--- NOTE | 2018-03-21 12:02 | CON ---
[address] [address] CONSULTATION Name: OWEN MARCANO Room: [address] IN M.R.#: [id number] Admission: 03/09/18 Attend Phys: Kevon Bunn MD Discharge: 03/13/18 Date of : 40 Report #: [id number] THIS REPORT FOR: //name// CC: Kevon Patiño DATE OF SERVICE: 03/10/2018 CONSULTING PHYSICIAN: Kevon Bunn MD REASON FOR NEPHROLOGY CONSULTATION: End-stage renal disease, for evaluation of any need for hemodialysis. CHIEF COMPLAINT: Shortness of breath and cough and wheezing. HISTORY OF PRESENT ILLNESS: This is a 77-year-old female who has been on hemodialysis for at least a year, was considered ESRD, was going for dialysis every Sunday, , Sunday; has a history of diabetes and hypertension and other medical problems who came in having shortness of breath and wheezing and was found to be hypoxic and was admitted yesterday for this. Her chest x-ray did not show evidence of fluid overload. Her VQ scan could not rule out a PE and there was an intermediate probability for PE. Her chest x-ray revealed a possible left-sided mass-like opacity, but the CT scan of her chest without contrast revealed resolving pneumonia. Her breathing is better today. Dr. Shearer is her primary hat finisher at her dialysis facility and he wanted to watch the patient's creatinine before dialyzing her because it seems like the patient's creatinine has stabilized around 2.5 at least since November of this year. Yesterday, Sunday, was her regular dialysis day, but dialysis was held because we were watching her creatinine as per the outpatient plan. The patient's creatinine has unfortunately gone up to 2.9 today from 2.5 yesterday. She does take Lasix and lisinopril at home and that was continued. Her breathing has improved and a chest x-ray as mentioned above did not show any evidence of fluid overload. She still makes some urine. She made about 600 mL of urine in the last 24 hours. REVIEW OF SYSTEMS: Cough, wheezing and shortness of breath, which are overall getting better. The patient has had generalized weakness and other review of systems were done and they were negative. ALLERGIES: ERYTHROMYCIN, PENICILLIN, TETRACYCLINE. PAST MEDICAL HISTORY: Includes a history of end-stage renal disease, on dialysis every Sunday, , Sunday; diabetes; hyperlipidemia; hypertension; COPD. PAST SURGICAL HISTORY: Includes right foot callus removal. [place] [address] CONSULTATION Name: OWEN MARCANO Room: [address] IN M.R.#: [id number] Admission: 03/09/18 Attend Phys: Kevon Bunn MD Discharge: 03/13/18 Date of : 40 Report #: [id number] catheter, PermCath in her right IJ; carotid endarterectomy and lens implants. FAMILY HISTORY: Noncontributory. SOCIAL HISTORY: She lives with her . She still smokes every day and she denies using any recreational drugs or alcohol use. HOME MEDICATIONS: They include furosemide 80 mg b.i.d., hydralazine 100 mg t.i.d., folic acid, pravastatin, aspirin, Zetia, calcium carbonate, carvedilol, polyethylene glycol, lisinopril 10 mg once a day, cetirizine, diphenhydramine, insulin, clonidine, Combivent, lispro, hydrocodone, meclizine, cholecalciferol and Plavix. PHYSICAL EXAMINATION: VITAL SIGNS: Blood pressure is 132/48, pulse rate is 92, temperature 37.1, respiratory rate is 19, pulse ox was 98% on 2 liters nasal cannula. GENERAL: She is awake, alert, oriented x 3. HEAD, EYES, EARS, NOSE, THROAT: Mucous membranes are moist. NECK: No JVD. CHEST: Decreased breath sounds bilaterally, but no crackles or wheezing. CARDIOVASCULAR: S1, S2 normal. No murmurs. ABDOMEN: Soft, nondistended, nontender. Bowel sounds are present. EXTREMITIES: She has no lower extremity edema and symmetrical extremities. NEUROLOGICAL FUNCTION: Gross neurological function is intact. PSYCHIATRIC: Mood and affect seems to be normal. LABORATORY DATA: From today, WBC is 10, hemoglobin is 11.4. Sodium was 132, but glucose was 274 and creatinine was 2.9 and potassium is 4.8. Other labs were reviewed. IMAGING: Chest x-ray, chest and V/Q scan reviewed. ASSESSMENT AND PLAN: 1. End-stage renal disease, on hemodialysis: There was some hope that her creatinine might be getting better. Plan was to hold off on dialysis on Sunday, which was yesterday and watch her creatinine. Unfortunately, I am seeing that her creatinine is getting worse without dialysis. There is no urgent need for dialysis today, but we will follow for any developing need. The patient was hoping that she will get off dialysis, but I did educate her that she will probably end up needing it. I would avoid her lisinopril for now to help with her renal function. We will continue Lasix to help with urine output, so continue Lasix 80 mg b.i.d. We will evaluate her for any developing dialysis need tomorrow morning. 2. Shortness of breath, likely left lower lobe pneumonia and chronic obstructive pulmonary disease exacerbation: The patient is getting treatment with Levaquin and steroids as per Pulmonary. As per Pulmonary, [place] [address] CONSULTATION Name: OWEN MARCANO Room: [address] IN .R.#: [id number] Admission: 03/09/18 Attend Phys: Kevon Bunn MD Discharge: 03/13/18 Date of : 40 Report #: [id number] for pulmonary embolism is very low and there was no evidence of a lung cancer on her CT scan. 3. Hypertension: Her blood pressure is currently controlled, holding off on lisinopril to help with renal function. 4. Anemia of chronic kidney disease: Hemoglobin is 11.4, currently at goal. No need for iron or Epogen right now. 5. Diabetes type 2, not controlled: Current blood glucose is running high and steroids are probably also contributing. We will defer to primary team for that. Thank you for this consultation. We will continue to follow along with you. Plan was discussed with the patient, the patient's and the patient's nurse, Lalo. <ELECTRONICALLY SIGNED> By: Pamela Pinto MD 03/21/18 1202 0925 2029Azhane Pinto MD /belkis
[2018-05-01] MEDS ORDERED: MAGOX 400400 MG PO (09:59)
[2018-07-21] MEDS ORDERED: CATAPRESS3 TRANSDERM (10:26)
== END 2018-03-13 13:20 | disposition home or self-care (01) | DRG 177 ==
LOC: M.ERS 22:35 → M.TBA-ER 03-09 00:26 → M.2W 03-09 00:26
PROVIDERS: Emergency Medicine; ADMIT Internal Medicine
PROC: 5A1D70Z Performance of Urinary Filtration, Intermittent, Less than 6 Hours Per Day (ICD-10-PCS; principal; 2018-03-11)
PROC: 5A1D70Z Performance of Urinary Filtration, Intermittent, Less than 6 Hours Per Day (ICD-10-PCS; 2018-03-12)
DX: J15.6 Pneumonia due to other Gram-negative bacteria (principal); J96.20 Acute and chronic respiratory failure, unspecified whether with hypoxia or hypercapnia; N18.6 End stage renal disease; I12.0 Hypertensive chronic kidney disease with stage 5 chronic kidney disease or end stage renal disease; J44.0 Chronic obstructive pulmonary disease with (acute) lower respiratory infection; J44.1 Chronic obstructive pulmonary disease with (acute) exacerbation; E46 Unspecified protein-calorie malnutrition; E11.22 Type 2 diabetes mellitus with diabetic chronic kidney disease; E78.5 Hyperlipidemia, unspecified; F17.210 Nicotine dependence, cigarettes, uncomplicated; D63.1 Anemia in chronic kidney disease; J20.9 Acute bronchitis, unspecified; I65.29 Occlusion and stenosis of unspecified carotid artery; Z96.1 Presence of intraocular lens; Z79.2 Long term (current) use of antibiotics; Z79.82 Long term (current) use of aspirin; Z98.890 Other specified postprocedural states; Z88.1 Allergy status to other antibiotic agents; Z68.22 Body mass index [BMI] 22.0-22.9, adult; Z98.49 Cataract extraction status, unspecified eye; Z99.2 Dependence on renal dialysis; Z88.0 Allergy status to penicillin; Z79.4 Long term (current) use of insulin; Z79.899 Other long term (current) drug therapy

== ENCOUNTER 2018-06-01 12:01 | Emergency (ER) | payer OTHER ==
[~2018-06-01] VITALS: Ht 160 cm; Wt 62.6 kg
[~2018-06-01 12:01] MED LIST changes: +MAGOX 400400 MG PO; +PREDNISONE 10 M10 M1 PO
[2018-06-01] MEDS ORDERED: NOVOLOG100 UNIT/1 SUBQ (12:17)
[2018-06-01] MEDS ORDERED: EFFER-K 20 MEQ20 ME1 PO (12:17)
[2018-06-01] MEDS ORDERED: NOVOLIN N100 UNIT/3 SUBQ (12:18)
[2018-06-01] MEDS ORDERED: NIFEDIPINE ER60 M1 PO (12:18)
[2018-06-01] MEDS ORDERED: RENAL CAPS SOFTG1 MG PO (12:18)
[2018-06-01] MEDS ORDERED: VENTOLIN HFA 1818 GM INH (12:19)
[2018-06-01] MEDS ORDERED: POLYMYXIN B/TMP10 ML OPHTHALMIC (12:24)
[2018-06-01 12:29] VITALS: BP 159/95
[2018-07-21] MEDS ORDERED: CATAPRESS3 TRANSDERM (10:26)
== END 2018-06-01 12:30 | disposition home or self-care (01) ==
LOC: M.ERS 12:01
DX: H10.9 Unspecified conjunctivitis (principal); E11.22 Type 2 diabetes mellitus with diabetic chronic kidney disease; I12.0 Hypertensive chronic kidney disease with stage 5 chronic kidney disease or end stage renal disease; N18.6 End stage renal disease; E78.5 Hyperlipidemia, unspecified; F17.210 Nicotine dependence, cigarettes, uncomplicated; Z99.2 Dependence on renal dialysis; Z79.4 Long term (current) use of insulin; Z88.1 Allergy status to other antibiotic agents; Z88.0 Allergy status to penicillin

== ENCOUNTER → 2018-06-10 | Outpatient (CLI) | payer OTHER ==
[~2018-06-10] VITALS: Ht 160 cm; Wt 65.8 kg
[~2018-06-10] MED LIST changes: +CATAPRES-TTS 20.2 MG TRANSDERM; +COREG6.25 MG PO; +EFFER-K 20 MEQ20 ME1 PO; +NOVOLOG100 UNIT/1 SUBQ; +POLYMYXIN B/TMP10 ML OPHTHALMIC; +SINGULAIR 10 MG10 M1 PO
[2018-06-10 12:43] LABS: HEMATOCRIT 38.5 % (37.0-47.0); HEMOGLOBIN 12.7 gm/dL (12.0-15.0); MCH 31.8 pg (26.0-34.0); MCHC 32.9 g/dL (28.0-37.0); MCV 96.5 fL (80.0-100.0); MPV 9.6 fl. (7.2-11.1); RBC 3.99 mil/uL (4.20-5.00); RDW-CV 14.4 % (10.5-14.5); WBC 10.2 thou/uL (4.0-11.0)
[2018-06-10 12:50] LABS: CREATININE 2.8 mg/dL (0.6-1.3); POTASSIUM 4.6 mmol/L (3.5-5.1)
[2018-06-10 12:54] LABS: ALBUMIN 2.9 g/dL (3.4-5.0); TOTAL BILIRUBIN 0.5 mg/dL (<0.1-1.0); TOTAL PROTEIN 7.3 g/dL (6.4-8.2)
== END | disposition home or self-care (01) ==
LOC: M.SUR 03-15 08:32 → EDSTATUS 09:15 → M.SUR 09:25 → M.LAB 12:12 → M.SUR 12:12
PROVIDERS: Surgery Vascular Surgery
DX: E11.65 Type 2 diabetes mellitus with hyperglycemia (principal); Z53.8 Procedure and treatment not carried out for other reasons; E11.22 Type 2 diabetes mellitus with diabetic chronic kidney disease; N18.6 End stage renal disease; I73.89 Other specified peripheral vascular diseases

== ENCOUNTER 2018-07-16 07:07 | Inpatient (IN) | payer OTHER ==
[~2018-07-16] VITALS: Ht 157.5 cm; Wt 65.8 kg
[~2018-07-16 07:07] MED LIST changes: -CATAPRES-TTS 20.2 MG TRANSDERM; -COREG6.25 MG PO; -SINGULAIR 10 MG10 M1 PO
[2018-07-16 07:16] VITALS: BP 167/77
[2018-07-16] MEDS ORDERED: SINGULAIR 10 MG10 M1 PO (07:18)
[2018-07-16 07:40] LABS: ABSOLUTE EOSINOPHILS 0.2 thou/uL (0.0-0.7); ABSOLUTE LYMPHOCYTES 1.6 thou/uL (0.8-5.3); ABSOLUTE MONOCYTES 0.8 thou/uL (0.0-1.2); BASOPHILS 0.7 %; EOSINOPHILS 3.5 %; HEMOGLOBIN 13.3 gm/dL (12.0-15.0); LYMPHOCYTES 23.7 %; MCH 31.3 pg (26.0-34.0); MCHC 32.4 g/dL (28.0-37.0); MCV 96.6 fL (80.0-100.0); MPV 9.2 fl. (7.2-11.1); NUCLEATED RBCS 0 /100WBC; PLATELET COUNT* 352 thou/uL (150-400); POLYS 60.1 %; RBC 4.25 mil/uL (4.20-5.00); RDW-CV 15.4 % (10.5-14.5); WBC 6.7 thou/uL (4.0-11.0)
[2018-07-16 07:49] LABS: ANION GAP 3 mmol/L (7-16); BUN 31 mg/dL (7-18); CALCIUM 8.4 mg/dL (8.5-10.1); CHLORIDE 99 mmol/L (98-107); CO2 31 mmol/L (21-32); CREATININE 3.5 mg/dL (0.6-1.3); GLUCOSE 162 mg/dL (70-99); POTASSIUM 4.8 mmol/L (3.5-5.1); SODIUM 133 mmol/L (136-145)
[2018-07-16 07:50] LABS: APTT 26.1 Seconds (25.0-31.3); INR 1.1; PROTIME 11.4 Seconds (9.20-11.50)
[2018-07-16 07:56] LABS: ALBUMIN 3.2 g/dL (3.4-5.0); ALKALINE PHOSPHATASE 296 U/L (46-116); SGOT 37 U/L (15-37); SGPT 31 U/L (30-65); TOTAL BILIRUBIN 0.3 mg/dL (<0.1-1.0); TOTAL PROTEIN 7.3 g/dL (6.4-8.2); TROPONIN-I LEVEL <0.06 ng/mL (<0.06)
[2018-07-16 09:31] VITALS: BP 171/63
[2018-07-16 10:12] VITALS: BP 182/71
--- NOTE | 2018-07-16 12:59 | EKG ---
[place] [address] ELECTROCARDIOGRAM REPORT Name: OWEN MARCANO Room: [address] IN R.#: [id number] Admission: 07/16/18 Attend Phys: Johny Franco Discharge: Date of : 40 Report #: [id number] THIS REPORT FOR: //name// [facility] ED Test Date: 2018-07-16 Test Time: 07:18:03 Pat Name: OWEN MARCANO Department: Room: Gender: F Egg Grader: Lorraine SMITH : 1940 Requested By: Jareth Valenzuela Order Number: [id number] MD: Jesus Erwin Measurements Intervals [place] Rate: 80 P: 69 MS: 222 QRS: -48 QRSD: 133 T: 76 QT: 413 QTc: 477 Interpretive Statements Sinus rhythm Prolonged [place] interval Left bundle branch block Compared to ECG 03/08/2018 22:48:22 No significant changes Electronically Signed On 07-16-2018 12:59:38 CDT by Jesus Erwin [email or web address] <ELECTRONICALLY SIGNED> By: Jesus Erwin MD, [facility] 07/16/18 1259 7 7 Jesus Erwin MD, [facility] /EPI
[2018-07-17] VITALS (8 sets, daily range): BP systolic 82–148; BP diastolic 33–91
[2018-07-18 02:11] LABS: GLYCOHEMOGLOBIN (HGB A1C) 8.3 % (4.8-5.6)
[2018-07-18 05:15] VITALS: BP 105/33
[2018-07-18 15:32] VITALS: BP 111/35
[2018-07-18 20:10] VITALS: BP 104/32
[2018-07-19 04:04] VITALS: BP 166/51
[2018-07-19 09:15] VITALS: BP 126/41
[2018-07-19] MEDS ORDERED: PREDNISONE 10 M10 MG PO (13:00)
[2018-07-19 15:18] VITALS: BP 126/41
[2018-07-19 15:59] VITALS: BP 126/41
--- NOTE | 2018-07-21 08:35 | CON ---
[address] [address] CONSULTATION Name: OWEN MARCANO Room: [address] IN M.R.#: [id number] Admission: 07/16/18 Attend Phys: Johny Franco Discharge: 07/19/18 Date of : 40 Report #: [id number] THIS REPORT FOR: //name// CC: Janneth Read DATE OF SERVICE: 07/16/2018 NEPHROLOGY CONSULTATION CONSULTING PHYSICIAN: Dr. Simpson. REASON FOR NEPHROLOGY CONSULTATION: End-stage renal disease for hemodialysis need. REASON FOR ADMISSION: COPD exacerbation or shortness of breath. HISTORY OF PRESENT ILLNESS: This is a 78-year-old female who has end-stage renal disease, who is on hemodialysis every Sunday, and Sunday at [facility] [place] under the care of Dr. Shearer and history of COPD, who still smokes. She came in with shortness of breath. She was also wheezing. She was started on treatment for COPD exacerbation. She was dialyzed yesterday since it was a dialysis day and currently, she feels her breathing has improved. ALLERGIES: PENICILLIN, TETRACYCLINE AND ERYTHROMYCIN BASE. REVIEW OF SYSTEMS: This is as mentioned in the history of present illness, otherwise negative. The patient states that she still makes some urine. MEDICATIONS: Her home medications, which include potassium?, NovoLog, Novolin, nifedipine, montelukast, furosemide, hydralazine, Zetia, pravastatin, calcium carbonate, carvedilol, polyethylene glycol, aspirin, folic acid, lisinopril, cholecalciferol, folic acid, ipratropium, meclizine, albuterol, cetirizine, clonidine, hydrocodone, magnesium oxide 400 mg daily and Plavix. PAST MEDICAL AND SURGICAL HISTORY: 1. Right foot callus removal. 2. Tonsillectomy and adenoidectomy. 3. End-stage renal disease, on hemodialysis every Sunday, and Sunday. 4. History of diabetes type 2. 5. Hypertension. 6. Hyperlipidemia. 7. Noncompliance. 8. Right [place] [address] CONSULTATION Name: MARCANOOWEN SIMON Room: [address]#: [id number] Admission: 07/16/18 Attend Phys: Johny Franco Discharge: 07/19/18 Date of : 40 Report #: [id number] 9. COPD. FAMILY HISTORY: History of heart disease and diabetes in the family. SOCIAL HISTORY: She still smokes about 1 pack a day. No history of alcohol use or recreational drug use. PHYSICAL EXAMINATION: VITAL SIGNS: Blood pressure is 92/48, pulse rate is 77, temperature is 36.6, respiratory rate is 19 and pulse ox is 98% on 2 liters nasal cannula. GENERAL: She is awake, alert and oriented x 3. HEAD, EYES, EARS, NOSE AND THROAT: Mucous membranes are moist. NECK: There is no JVD. CHEST: Diminished breath sounds bilaterally and distant breath sounds. CARDIOVASCULAR: S1, S2 normal. No murmurs. ABDOMEN: Soft, nondistended and nontender. Bowel sounds are present. EXTREMITIES: No lower extremity edema. Symmetric lower extremities. NEUROLOGICAL FUNCTION: Clinical neurological function is intact. DIALYSIS ACCESS: She has a right IJ dialysis catheter, which is intact. PSYCHIATRIC: Mood seems to be normal. LABORATORY DATA: Hemoglobin 13.3, WBC 6.7 and platelet count is 352,000. Potassium was 4.8 yesterday before dialysis. Sodium was 133 and other labs are reviewed. IMAGING: Chest x-ray was reviewed. ASSESSMENT: 1. End-stage renal disease, on hemodialysis Sunday, and Sunday. 2. Chronic obstructive pulmonary disease exacerbation. Primary team is managing that. 3. History of diabetes type 2. Primary team is managing that. 4. Hypertension. Blood pressure is currently running a little bit low. 5. Peripheral vascular disease. 6. Anemia of chronic disease, hemoglobin is above goal at 13.3. PLAN: 1. I would like to stop potassium supplementation in this dialysis patient. 2. Chronic obstructive pulmonary disease, management as per primary team. 3. We will continue to follow for her dialysis needs. We [place] [address] CONSULTATION Name: BISHOPOWEN SIMON Room: [address] IN ..#: [id number] Admission: 07/16/18 Attend Phys: Johny Franco Discharge: 07/19/18 Date of : 40 Report #: [id number] Thank you for this consultation. We will continue to follow along with you. <ELECTRONICALLY SIGNED> By: Pamela Pinto MD 07/21/18 0835 0834 1340Pamela Pinto MD /nt
[2018-07-21] MEDS ORDERED: CATAPRESS3 TRANSDERM (10:26)
== END 2018-07-19 16:00 | disposition home or self-care (01) | DRG 189 ==
LOC: M.ERS 07:07 → M.ORTHSURG 09:00 → M.ERS 09:34 → M.ORTHSURG 07-19 16:00
PROVIDERS: Emergency Medicine; Family Medicine; ADMIT Internal Medicine
PROC: 5A1D70Z Performance of Urinary Filtration, Intermittent, Less than 6 Hours Per Day (ICD-10-PCS; principal; 2018-07-16)
PROC: 5A1D70Z Performance of Urinary Filtration, Intermittent, Less than 6 Hours Per Day (ICD-10-PCS; 2018-07-18)
DX: J96.00 Acute respiratory failure, unspecified whether with hypoxia or hypercapnia (principal); N18.6 End stage renal disease; J44.1 Chronic obstructive pulmonary disease with (acute) exacerbation; I12.0 Hypertensive chronic kidney disease with stage 5 chronic kidney disease or end stage renal disease; E11.22 Type 2 diabetes mellitus with diabetic chronic kidney disease; E78.5 Hyperlipidemia, unspecified; F17.210 Nicotine dependence, cigarettes, uncomplicated; E11.51 Type 2 diabetes mellitus with diabetic peripheral angiopathy without gangrene; D63.8 Anemia in other chronic diseases classified elsewhere; E11.65 Type 2 diabetes mellitus with hyperglycemia; Z99.2 Dependence on renal dialysis; Z88.1 Allergy status to other antibiotic agents; Z88.0 Allergy status to penicillin; Z91.19 Patient's noncompliance with other medical treatment and regimen; Z82.49 Family history of ischemic heart disease and other diseases of the circulatory system; Z83.3 Family history of diabetes mellitus; Z79.4 Long term (current) use of insulin; Z23 Encounter for immunization; Z79.899 Other long term (current) drug therapy

== ENCOUNTER 2018-07-21 16:24 | Inpatient (IN) | payer OTHER ==
[~2018-07-21] VITALS: Ht 160 cm; Wt 56.7 kg
[2018-07-21] VITALS (13 sets, daily range): BP systolic 95–175; BP diastolic 50–82
[~2018-07-21 16:24] MED LIST changes: +SINGULAIR 10 MG10 M1 PO
[2018-07-21 16:56] LABS: HEMATOCRIT 37.2 % (37.0-47.0); HEMOGLOBIN 12.5 gm/dL (12.0-15.0); MCH 32.1 pg (26.0-34.0); MCHC 33.5 g/dL (28.0-37.0); MCV 95.8 fL (80.0-100.0); MPV 9.5 fl. (7.2-11.1); NUCLEATED RBCS 0 /100WBC; PLATELET COUNT* 342 thou/uL (150-400); RBC 3.88 mil/uL (4.20-5.00); RDW-CV 15.3 % (10.5-14.5); WBC 10.4 thou/uL (4.0-11.0)
[2018-07-21 17:04] LABS: CALCIUM 8.9 mg/dL (8.5-10.1); CREATININE 4.3 mg/dL (0.6-1.3); POTASSIUM 5.1 mmol/L (3.5-5.1)
[2018-07-21 17:10] LABS: APTT 25.5 Seconds (25.0-31.3); INR 1.1
[2018-07-21 17:14] LABS: ALBUMIN 2.9 g/dL (3.4-5.0); MAGNESIUM 2.8 mg/dL (1.8-2.4); TOTAL BILIRUBIN 0.2 mg/dL (<0.1-1.0); TOTAL PROTEIN 6.8 g/dL (6.4-8.2); TROPONIN-I LEVEL 0.08 ng/mL (<0.06)
[2018-07-21 17:23] LABS: BE -2.2 mmol/L (-2 to +3); HCO3 22.2 mmol/L (22.0-26.0); PCO2 36.6 mmHg (35.0-45.0); PO2 75.3 mmHg (75.0-100.0)
[2018-07-21 17:57] LABS: ABSOLUTE LYMPHOCYTES 2.9 thou/uL (0.8-5.3); ABSOLUTE MONOCYTES 0.2 thou/uL (0.0-1.2); ABSOLUTE NEUTROPHILS 7.3 thou/uL (1.6-8.1)
[2018-07-21 17:59] LABS: ANISOCYTOSIS Occasional; PLATELET ESTIMATE ADEQUATE
[2018-07-22] VITALS (13 sets, daily range): BP systolic 96–160; BP diastolic 32–54
--- NOTE | 2018-07-22 09:23 | EKG ---
[place] [address] ELECTROCARDIOGRAM REPORT Name: OWEN MARCANO Room: [address] ADM IN M.R.#: [id number] Admission: 07/21/18 Attend Phys: Sesar Holman MD Discharge: Date of : 40 Report #: [id number] THIS REPORT FOR: //name// [facility] ED Test Date: 2018-07-21 Test Time: 16:34:01 Pat Name: OWEN MARCANO Department: Room: [facility] Gender: F Geospatial Program Management Officer: Lorraine SMITH : 1940 Requested By: Donaldo Mancera Order Number: [id number] MD: Eliseo Owens Measurements Intervals [place] Rate: 93 P: 53 WV: 232 QRS: -20 QRSD: 135 T: 127 QT: 370 QTc: 461 Interpretive Statements Sinus rhythm Prolonged [place] interval Left bundle branch block Compared to ECG 07/16/2018 07:18:03 No significant changes Electronically Signed On 07-22-2018 9:23:09 CDT by Eliseo Owens [email or web address] <ELECTRONICALLY SIGNED> By: Eliseo Owens MD, [facility] 07/22/18 0923 1634 1634 Eliseo Owens MD, [facility] /EPI
[2018-07-23] VITALS: BP 98/47
[2018-07-23 04:00] VITALS: BP 107/32
[2018-07-23 05:06] LABS: HEMATOCRIT 34.5 % (37.0-47.0); HEMOGLOBIN 11.5 gm/dL (12.0-15.0)
[2018-07-23 05:21] VITALS: BP 124/44
[2018-07-23 06:09] LABS: ALBUMIN 2.7 g/dL (3.4-5.0); CALCIUM 8.8 mg/dL (8.5-10.1); CREATININE 4.1 mg/dL (0.6-1.3); PHOSPHORUS* 5.2 mg/dL (2.5-4.9); POTASSIUM 5.6 mmol/L (3.5-5.1)
[2018-07-23 07:55] VITALS: BP 121/46
--- NOTE | 2018-07-23 08:07 | CON ---
[address] [address] CONSULTATION Name: OWEN MARCANO Room: [address] IN M.R.#: [id number] Admission: 07/21/18 Attend Phys: Sesar Holman MD Discharge: Date of : 40 Report #: [id number] THIS REPORT FOR: //name// CC: Sesar Mulligan REQUESTING PHYSICIAN: Dr. Simpson. REASON FOR CONSULTATION: COPD. DISCUSSION: The patient is a 78-year-old woman with history of ongoing tobacco abuse and underlying COPD, severity unknown. She also has a history of end-stage renal disease and is on chronic hemodialysis. She was hospitalized here and treated for COPD exacerbation and was discharged on 07/19/2018. However, she apparently did not start her prednisone taper at home. Also missed dialysis. She then presented to the emergency Department yesterday afternoon with marked shortness of breath. Was seen in the emergency department. She was dialyzed last night. She is feeling much better today. However, she was bronchospastic on exam. We were asked to see her. She does smoke a pack of cigarettes per day. It is not clear how much she was smoking the day before she was readmitted here. She has a nebulizer at home. She does use it about every 4 hours while awake when she is having problems, which is frequently. Her notes she may occasionally take an extra treatment. She also has a Ventolin inhaler at home. Other records indicate that she has Combivent at home, but when I described what it looked like, they deny that. It is not clear what medicine she is putting in her nebulizer with her straight albuterol with ipratropium bromide. She is also on montelukast 10 mg a day. As noted, she was given a steroid taper when she was discharged on the , though she never took that. Our group did see her when she was in the hospital this spring. She was treated for pneumonia at that time. Films done at that time, which included CT scan, revealed mass-like infiltrate with potential cavitary component. We last saw her in February in hospital, a followup imaging was recommended. In talking with her; however, no followup CT scans have been done. She denies having much of any cough. Does intermittently wheeze. With little sputum, she has this clear. She denies any hemoptysis. She denies any nausea or vomiting. Denies any recent fevers at home. PAST MEDICAL HISTORY: Besides the end-stage renal disease and the COPD, remarkable for prior episodes of influenza, hypertension, diabetes mellitus type 2, carotid endarterectomy, tonsillectomy, and some other type of abdominal surgery, carotid endarterectomy. FAMILY HISTORY: Positive [place] [address] CONSULTATION Name: OWEN MARCANO Room: [address] IN .R.#: [id number] Admission: 07/21/18 Attend Phys: Sesar Holman MD Discharge: Date of : 40 Report #: [id number] PHYSICAL EXAMINATION: GENERAL: She is seen in the ICU prior to being transferred out. Resting in bed, is on O2 with 4 L per nasal cannula. She is in no acute distress. Her is at the bedside. She does look chronically ill. O2 saturations are in the mid to high 90s. HEENT: Head is normocephalic and atraumatic. Sclerae are nonicteric. Mucous membranes look a little dry. NECK: Negative for any definite adenopathy. Neck veins do not look prominent. HEART: Regular. Grade 1/6 systolic murmur. No S3 is heard. LUNGS: Reveal breath sounds that are mildly diminished with a prolonged expiratory phase. Does have scattered rhonchi heard bilaterally. Few late expiratory wheezes heard as well. Excursion is equal. No CVA tenderness. ABDOMEN: Soft, without appreciable hepatosplenomegaly. She has no guarding or rebound tenderness noted. EXTREMITIES: Lower extremities are thin. Does appear to have some muscle wasting. She has some trace pretibial edema. SKIN: Warm and dry. Turgor is fair. NEUROLOGIC: She is alert and oriented times 3. LABORATORY AND X-RAY FINDINGS: Chest film were reviewed. Most recent x-rays done this month, show heart size to be normal. No definite infiltrates are seen. No masses. Arterial blood gases done yesterday on 2 L, she had a pH 7.40, pCO2 of 37, pO2 75, bicarbonate 22 with a saturation of 93% that was on 2 L. Yesterday, BUN was 95, creatinine of 4.3, potassium was 5.1, bicarbonate is 31. Alkaline phosphatase was 171, ALT 21. Blood sugars have been high running between 200 and 400. Coag studies unremarkable. White count yesterday was [address], hemoglobin 12.5, hematocrit 37, platelets 342,000. Echocardiogram done this past spring revealed EF of 55% to 60%. RV was normal as well. Did not have any significant valvular disease. IMPRESSION: 1. Chronic obstructive pulmonary disease exacerbation. She is actively bronchospastic on exam. She is already on steroids and DuoNeb every 4 hours. 2. Previously had noted mass-like infiltrates on her CAT scan. I do not see any that on a regular chest x-ray. However, given her long smoking history, that does need to be followed up. 3. End-stage renal disease, on chronic hemodialysis. 4. Ongoing tobacco abuse. RECOMMENDATIONS: 1. Continue regimen. It is okay to transfer out of the ICU. 2. Wean FiO2 as able. 3. If she has enough improvement over the next 24 hours, [place] [address] CONSULTATION Name: GERTRUDE MARCANOARA SIMON Room: [address] IN [facility].#: [id number] Admission: 07/21/18 Attend Phys: Sesar Holman MD Discharge: Date of : 40 Report #: [id number] decrease her IV steroids. 4. Long-term prognosis is guarded. Smoking cessation is certainly imperative. <ELECTRONICALLY SIGNED> By: Radha De La Rosa MD 07/23/18 0807 1216 2332Radha De La Rosa MD /nt
[2018-07-23 11:30] VITALS: BP 108/41
[2018-07-23 20:13] VITALS: BP 97/35
[2018-07-24 01:03] VITALS: BP 92/38
[2018-07-24 04:01] VITALS: BP 105/45
[2018-07-24 08:20] VITALS: BP 110/47
[2018-07-24 12:23] VITALS: BP 101/39
[2018-07-24 16:26] VITALS: BP 100/44
[2018-07-24 20:09] VITALS: BP 108/44
[2018-07-25] VITALS: BP 94/35
[2018-07-25 04:00] VITALS: BP 113/53
[2018-07-25 05:13] LABS: ALBUMIN 2.1 g/dL (3.4-5.0); CALCIUM 8.2 mg/dL (8.5-10.1); CREATININE 3.5 mg/dL (0.6-1.3); PHOSPHORUS* 4.6 mg/dL (2.5-4.9); POTASSIUM 5.5 mmol/L (3.5-5.1)
[2018-07-25 08:15] VITALS: BP 151/56
--- NOTE | 2018-07-25 10:04 | CON ---
[address] [address] CONSULTATION Name: OWEN MARCANO Room: [address] IN M.R.#: [id number] Admission: 07/21/18 Attend Phys: Sesar Holman MD Discharge: Date of : 40 Report #: [id number] THIS REPORT FOR: //name// CC: Sesar Mulligan DATE OF SERVICE: 07/22/2018 CONSULTING PHYSICIAN: Dr. Holman. REASON FOR CONSULTATION: End-stage kidney disease. HISTORY OF PRESENT ILLNESS: A 78-year-old female admitted with COPD exacerbation and respiratory failure. She missed her dialysis on Sunday and was urgently dialyzed yesterday evening. She is feeling much better now, has no complaints. No fevers or chills. No chest pain. REVIEW OF SYSTEMS: Constitutional, psych, heme, eyes, ENT, respiratory, cardiac, GI, , endocrine, all negative except as documented above. PAST MEDICAL HISTORY: End-stage kidney disease, diabetes, dyslipidemia, hypertension, right carotid endarterectomy. FAMILY HISTORY: Positive for diabetes. SOCIAL HISTORY: Positive for tobacco. MEDICATIONS: Reviewed. PHYSICAL EXAMINATION: VITAL SIGNS: Blood pressure 160/53, pulse 87, temperature 36.7. GENERAL: In no acute distress. EYES: Open. EARS: Externally normal. CARDIOVASCULAR: Regular rate. LUNGS: No crackles. ABDOMEN: Soft. LYMPHATICS: No pitting edema. PSYCHIATRIC: Awake, alert. LABORATORY DATA: White cell count 10.4, hemoglobin 12.5, platelets 342. Sodium 133, potassium 5.1, chloride 98, bicarbonate 31, BUN 95, creatinine 4.3, glucose 261, calcium 8.9, magnesium 2.8, albumin 2.9. ASSESSMENT AND PLAN: 1. End-stage kidney disease, on hemodialysis on Tuesdays, , [place] [address] CONSULTATION Name: BISHOPOWEN SIMON Room: [address] IN [facility]#: [id number] Admission: 07/21/18 Attend Phys: Sesar Holman MD Discharge: Date of : 40 Report #: [id number] at the [facility]. 2. Hypertension. 3. Peripheral vascular disease with history of carotid endarterectomy. 4. Insulin-dependent diabetes. 5. Chronic obstructive pulmonary disease. PLAN: The patient was dialyzed yesterday evening. No urgent indications for dialysis today. We will plan routine dialysis in the morning. Thank you for requesting my opinion in the care and management of this patient. <ELECTRONICALLY SIGNED> By: Makenzie Shearer MD 07/25/18 1004 1648 0343Abid Terri Shearer MD /nt
[2018-07-25 13:00] VITALS: BP 183/50
[2018-07-25 15:00] VITALS: BP 122/47
[2018-07-26] VITALS: BP 99/40
[2018-07-26 02:09] LABS: HEPATITIS B SURFACE AG Negative (Negative)
[2018-07-26 04:00] VITALS: BP 104/39
[2018-07-26 08:00] VITALS: BP 129/61
[2018-07-26 12:20] VITALS: BP 86/38
[2018-07-26 12:45] VITALS: BP 115/49
[2018-07-26 15:36] VITALS: BP 116/46
[2018-07-27] VITALS: BP 135/41
[2018-07-27 04:00] VITALS: BP 121/39
[2018-07-27 04:52] LABS: HEMATOCRIT 34.4 % (37.0-47.0); HEMOGLOBIN 11.3 gm/dL (12.0-15.0); MCH 31.8 pg (26.0-34.0); MCHC 32.9 g/dL (28.0-37.0); MCV 96.5 fL (80.0-100.0); MPV 10.5 fl. (7.2-11.1); RBC 3.57 mil/uL (4.20-5.00); RDW-CV 15.5 % (10.5-14.5); WBC 18.1 thou/uL (4.0-11.0)
[2018-07-27 05:36] LABS: ALBUMIN 1.9 g/dL (3.4-5.0); CALCIUM 8.3 mg/dL (8.5-10.1); CREATININE 3.3 mg/dL (0.6-1.3); MAGNESIUM 2.5 mg/dL (1.8-2.4); POTASSIUM 5.5 mmol/L (3.5-5.1); TOTAL BILIRUBIN 0.3 mg/dL (<0.1-1.0); TOTAL PROTEIN 4.8 g/dL (6.4-8.2)
[2018-07-27 07:30] VITALS: BP 129/94
[2018-07-27 15:54] VITALS: BP 102/38
[2018-07-28] VITALS (8 sets, daily range): BP systolic 108–195; BP diastolic 39–97
[2018-07-28 05:01] LABS: HEMATOCRIT 29.9 % (37.0-47.0); HEMOGLOBIN 10.1 gm/dL (12.0-15.0); MCHC 33.7 g/dL (28.0-37.0); MCV 95.2 fL (80.0-100.0); MPV 10.3 fl. (7.2-11.1); RBC 3.14 mil/uL (4.20-5.00); RDW-CV 15.3 % (10.5-14.5); WBC 16.6 thou/uL (4.0-11.0)
[2018-07-28 05:23] LABS: ALBUMIN 2.6 g/dL (3.4-5.0); CALCIUM 8.5 mg/dL (8.5-10.1); PHOSPHORUS* 3.2 mg/dL (2.5-4.9)
[2018-07-28 05:46] LABS: CREATININE 2.2 mg/dL (0.6-1.3); POTASSIUM 4.3 mmol/L (3.5-5.1)
[2018-07-29] VITALS: BP 106/39
[2018-07-29 04:00] VITALS: BP 128/42
[2018-07-29 05:21] LABS: HEMATOCRIT 30.8 % (37.0-47.0); HEMOGLOBIN 10.2 gm/dL (12.0-15.0); MCH 32.3 pg (26.0-34.0); MCHC 33.2 g/dL (28.0-37.0); MCV 97.4 fL (80.0-100.0); MPV 9.9 fl. (7.2-11.1); RBC 3.16 mil/uL (4.20-5.00); RDW-CV 15.3 % (10.5-14.5)
[2018-07-29 05:44] LABS: ALBUMIN 2.2 g/dL (3.4-5.0); CALCIUM 8.3 mg/dL (8.5-10.1); TOTAL BILIRUBIN 0.2 mg/dL (<0.1-1.0); TOTAL PROTEIN 5.2 g/dL (6.4-8.2)
[2018-07-29 08:00] VITALS: BP 128/43
[2018-07-29 13:21] VITALS: BP 117/35
[2018-07-29 16:00] VITALS: BP 111/37
[2018-07-29 20:00] VITALS: BP 149/55
[2018-07-30 00:52] VITALS: BP 142/53
[2018-07-30 05:12] VITALS: BP 189/65
[2018-07-30] MEDS ORDERED: COREG6.25 MG PO (12:09)
[2018-07-30] MEDS ORDERED: CATAPRES-TTS 20.2 MG TRANSDERM (12:09)
[2018-07-30 12:20] VITALS: BP 126/45
[2018-07-30 13:35] VITALS: BP 126/45
== END 2018-07-30 13:45 | disposition home health service (06) | DRG 189 ==
LOC: M.ERS 16:24 → M.TBA-ER 17:19 → M.ICU 17:19 → M.2W 07-22 18:03
PROVIDERS: Family Medicine; Internal Medicine Nephrology
PROC: 5A1D70Z Performance of Urinary Filtration, Intermittent, Less than 6 Hours Per Day (ICD-10-PCS; 2018-07-21)
PROC: 5A1D70Z Performance of Urinary Filtration, Intermittent, Less than 6 Hours Per Day (ICD-10-PCS; principal; 2018-07-25)
PROC: 5A1D70Z Performance of Urinary Filtration, Intermittent, Less than 6 Hours Per Day (ICD-10-PCS; 2018-07-27)
PROC: 5A1D70Z Performance of Urinary Filtration, Intermittent, Less than 6 Hours Per Day (ICD-10-PCS; 2018-07-30)
DX: J96.01 Acute respiratory failure with hypoxia (principal); E11.00 Type 2 diabetes mellitus with hyperosmolarity without nonketotic hyperglycemic-hyperosmolar coma (NKHHC); N18.6 End stage renal disease; J44.1 Chronic obstructive pulmonary disease with (acute) exacerbation; I12.0 Hypertensive chronic kidney disease with stage 5 chronic kidney disease or end stage renal disease; E87.1 Hypo-osmolality and hyponatremia; E11.22 Type 2 diabetes mellitus with diabetic chronic kidney disease; E11.42 Type 2 diabetes mellitus with diabetic polyneuropathy; I65.22 Occlusion and stenosis of left carotid artery; E87.70 Fluid overload, unspecified; J22 Unspecified acute lower respiratory infection; E11.65 Type 2 diabetes mellitus with hyperglycemia; F17.210 Nicotine dependence, cigarettes, uncomplicated; E78.5 Hyperlipidemia, unspecified; E87.5 Hyperkalemia; Z96.1 Presence of intraocular lens; Z99.2 Dependence on renal dialysis; Z79.2 Long term (current) use of antibiotics; Z79.82 Long term (current) use of aspirin; Z79.4 Long term (current) use of insulin; Z79.899 Other long term (current) drug therapy; Z88.1 Allergy status to other antibiotic agents; Z88.2 Allergy status to sulfonamides; Z88.7 Allergy status to serum and vaccine; Z98.42 Cataract extraction status, left eye; Z98.41 Cataract extraction status, right eye; Z82.49 Family history of ischemic heart disease and other diseases of the circulatory system; Z83.3 Family history of diabetes mellitus

== ENCOUNTER 2018-10-31 19:01 | Emergency (ER) | payer OTHER ==
[~2018-10-31] VITALS: Ht 160 cm; Wt 55.3 kg
[~2018-10-31 19:01] MED LIST changes: +CATAPRES-TTS 20.2 MG TRANSDERM; +COREG6.25 MG PO
[2018-10-31] MEDS ORDERED: CLONIDINE HCL0.3 M3 TRANSDERM (19:21)
[2018-10-31] MEDS ORDERED: CARVEDILOL12.5 MG PO (19:22)
[2018-10-31] MEDS ORDERED: HYDRALAZINE 2525 MG PO (19:26)
[2018-10-31] MEDS ORDERED: COMBIVENT INH (19:26)
[2018-10-31] MEDS ORDERED: NIFEDIPINE ER60 M1 PO (19:27)
[2018-10-31] MEDS ORDERED: HYDROCODON-ACE1 EAC7 PO (19:27)
[2018-10-31] MEDS ORDERED: ANTIVERT25 MG PO (19:27)
[2018-10-31 20:02] LABS: ABSOLUTE BASOPHILS 0.1 thou/uL (0.0-0.2); ABSOLUTE EOSINOPHILS 0.2 thou/uL (0.0-0.7); ABSOLUTE LYMPHOCYTES 2.1 thou/uL (0.8-5.3); ABSOLUTE MONOCYTES 0.7 thou/uL (0.0-1.2); ABSOLUTE NEUTROPHILS 5.9 thou/uL (1.6-8.1); BASOPHILS 0.7 %; EOSINOPHILS 2.6 %; HEMATOCRIT 37.3 % (37.0-47.0); HEMOGLOBIN 12.6 gm/dL (12.0-15.0); LYMPHOCYTES 23.4 %; MCH 31.3 pg (26.0-34.0); MCHC 33.8 g/dL (28.0-37.0); MCV 92.6 fL (80.0-100.0); MONOCYTES 7.8 %; MPV 9.8 fl. (7.2-11.1); NUCLEATED RBCS 0 /100WBC; PLATELET COUNT* 311 thou/uL (150-400); POLYS 65.5 %; RBC 4.02 mil/uL (4.20-5.00); RDW-CV 14.6 % (10.5-14.5)
[2018-10-31 20:10] LABS: CALCIUM 9.2 mg/dL (8.5-10.1); POTASSIUM 4.4 mmol/L (3.5-5.1)
[2018-10-31 20:20] LABS: ALBUMIN 3.3 g/dL (3.4-5.0); TOTAL BILIRUBIN 0.3 mg/dL (<0.1-1.0); TOTAL PROTEIN 7.4 g/dL (6.4-8.2)
[2018-10-31] MEDS ORDERED: BACTRIM DS TAB1 EACH PO (22:43)
[2018-10-31 23:25] VITALS: BP 130/46
== END 2018-10-31 23:25 | disposition home or self-care (01) ==
LOC: M.ERS 19:01
PROVIDERS: Emergency Medicine
DX: H00.035 Abscess of left lower eyelid (principal); L03.213 Periorbital cellulitis; E78.5 Hyperlipidemia, unspecified; I12.0 Hypertensive chronic kidney disease with stage 5 chronic kidney disease or end stage renal disease; E11.22 Type 2 diabetes mellitus with diabetic chronic kidney disease; N18.6 End stage renal disease; Z99.2 Dependence on renal dialysis; F17.210 Nicotine dependence, cigarettes, uncomplicated; Z88.0 Allergy status to penicillin; Z88.1 Allergy status to other antibiotic agents

== ENCOUNTER 2018-11-28 09:57 | Emergency (ER) | payer OTHER ==
[~2018-11-28] VITALS: Ht 160 cm; Wt 55.3 kg
[~2018-11-28 09:57] MED LIST changes: +CLONIDINE HCL0.3 M3 TRANSDERM
[2018-11-28] MEDS ORDERED: MIRALAX17 GM PO (10:34)
[2018-11-28 10:44] LABS: ABSOLUTE BASOPHILS 0.1 thou/uL (0.0-0.2); ABSOLUTE EOSINOPHILS 0.2 thou/uL (0.0-0.7); ABSOLUTE LYMPHOCYTES 1.2 thou/uL (0.8-5.3); ABSOLUTE MONOCYTES 0.9 thou/uL (0.0-1.2); ABSOLUTE NEUTROPHILS 3.7 thou/uL (1.6-8.1); EOSINOPHILS 3.3 %; HEMATOCRIT 39.3 % (37.0-47.0); HEMOGLOBIN 12.9 gm/dL (12.0-15.0); LYMPHOCYTES 19.1 %; MCH 30.8 pg (26.0-34.0); MCHC 32.8 g/dL (28.0-37.0); MCV 93.8 fL (80.0-100.0); MONOCYTES 15.4 %; MPV 9.1 fl. (7.2-11.1); NUCLEATED RBCS 0 /100WBC; PLATELET COUNT* 244 thou/uL (150-400); POLYS 61.2 %; RBC 4.19 mil/uL (4.20-5.00); RDW-CV 15.9 % (10.5-14.5); WBC 6.1 thou/uL (4.0-11.0)
[2018-11-28 10:52] LABS: ANION GAP 8 mmol/L (7-16); BUN 20 mg/dL (7-18); CALCIUM 9.1 mg/dL (8.5-10.1); CHLORIDE 97 mmol/L (98-107); CO2 32 mmol/L (21-32); CREATININE 2.8 mg/dL (0.6-1.3); GLUCOSE 187 mg/dL (70-99); POTASSIUM 4.5 mmol/L (3.5-5.1); SODIUM 137 mmol/L (136-145)
[2018-11-28 11:03] LABS: ALBUMIN 3.1 g/dL (3.4-5.0); ALKALINE PHOSPHATASE 104 U/L (46-116); NT-PRO BRAIN NAT PEPTIDE 3906 pg/mL (<300); SGOT 24 U/L (15-37); SGPT 18 U/L (30-65); TOTAL BILIRUBIN 0.3 mg/dL (<0.1-1.0); TOTAL PROTEIN 6.9 g/dL (6.4-8.2); TROPONIN-I LEVEL <0.06 ng/mL (<0.06)
[2018-11-28 11:57] LABS: INFLUENZA A ANTIGEN None Detected (None Detect); INFLUENZA B ANTIGEN None Detected (None Detect)
[2018-11-28] MEDS ORDERED: MEDROLDOSEPACK PO (12:05)
[2018-11-28] MEDS ORDERED: LEVAQUIN 500 M500 M2 PO (12:11)
[2018-11-28 12:23] VITALS: BP 120/47
--- NOTE | 2018-11-28 15:35 | EKG ---
[place] [address] ELECTROCARDIOGRAM REPORT Name: OWEN MARCANO [id number] Admission: 11/28/18 Attend Phys: Discharge: 11/28/18 Date of : 40 Report #: [id number] THIS REPORT FOR: //name// [facility] ED Test Date: 2018-11-28 Test Time: 10:51:26 Pat Name: OWEN MARCANO Department: Room: Gender: F Blow Molding Machine Operator: Lorraine LANGE : 1940 Requested By: Julia Lee Order Number: [id number] MD: Eliseo Owens Measurements Intervals [place] Rate: 72 P: 48 CT: 207 QRS: -19 QRSD: 132 T: 88 QT: 437 QTc: 479 Interpretive Statements Sinus rhythm with first degree av block Left bundle branch block Compared to ECG 07/21/2018 16:34:01 no change Electronically Signed On 11-28-2018 15:35:05 POLE FRAME CONSTRUCTION WORKER by Eliseo Owens [email or web address] <ELECTRONICALLY SIGNED> By: Eliseo Owens MD, [facility] 11/28/18 1535 1051 1051 Eliseo Owens MD, [facility] /EPI
== END 2018-11-28 12:23 | disposition home or self-care (01) ==
LOC: M.ERS 09:57
PROVIDERS: Nurse Practitioner Family
DX: J44.1 Chronic obstructive pulmonary disease with (acute) exacerbation (principal); F17.210 Nicotine dependence, cigarettes, uncomplicated; E11.22 Type 2 diabetes mellitus with diabetic chronic kidney disease; N18.9 Chronic kidney disease, unspecified; Z88.1 Allergy status to other antibiotic agents; Z88.0 Allergy status to penicillin; Z88.8 Allergy status to other drugs, medicaments and biological substances; Z79.4 Long term (current) use of insulin

== ENCOUNTER → 2019-03-12 | Day surgery (SDC) | payer OTHER ==
[~2019-03-12] MED LIST changes: +HYDRALAZINE HC100 MG PO; +LEVAQUIN 500 M500 M2 PO; +MEDROLDOSEPACK PO; +RENAL-VITE TAB0.8 MG PO
--- NOTE | ~2019-03-12 | OP ---
[facility] [address] [place] [address] OPERATIVE REPORT Name: OWEN MARCANO Room: [facility].#: [id number] Admission: 03/12/19 Attend Phys: Aaron Salmeron Discharge: Date of : 40 Report #: [id number] THIS REPORT FOR: //name// CC: Tima Salmeron DATE OF SERVICE: 03/12/2019 PREOPERATIVE DIAGNOSIS: End-stage renal disease. POSTOPERATIVE DIAGNOSIS: End-stage renal disease. PROCEDURE: 1. Laparoscopic placement of tunneled intraperitoneal catheter. 2. Laparoscopic omentopexy. SURGEON: Aaron Salmeron M.D. ANESTHESIA: General. ESTIMATED BLOOD LOSS: Minimal. SPECIMENS: None. DESCRIPTION OF PROCEDURE: After informed consent was obtained, the patient was brought to the operating room and placed supine. SCDs were placed and working. Preoperative antibiotics were administered, general anesthesia was induced. The abdomen was prepped and draped in the usual sterile fashion. A 5 mm incision was made in the left upper quadrant. A 5 mm trocar was placed under direct vision. Pneumoperitoneum was established. A left-sided 5 mm port was placed. An 8-mm port was placed above the umbilicus and the left rectus sheath. Catheter was placed through the 8 mm port. It was placed down into the pelvis. The laparoscope was then removed and the catheter was then tunneled into the left upper quadrant of the abdomen. It was flushed and douglas easily with approximately 600 mL of heparinized saline and then 300 mL was allowed to drain out. The laparoscope was then again inserted. The omentum was then brought up to the right upper quadrant. It was tacked to the abdominal wall using a suture passer and 2-0 Vicryl suture. The ports were then removed under direct vision. The skin was closed with 4-0 Monocryl. Incisions were sealed with Dermabond. COMPLICATIONS: [place] [address] OPERATIVE REPORT Name: OWEN MARCANO Room: [facility]#: [id number] Admission: 03/12/19 Attend Phys: Aaron Salmeron Discharge: Date of : 40 Report #: [id number] DISPOSITION: The patient was taken to recovery in satisfactory condition. By: [id number] Salmeron MD /nt
[2019-03-12 07:30] LABS: HEMATOCRIT 36.1 % (37.0-47.0); MCH 31.1 pg (26.0-34.0); MCHC 33.3 g/dL (28.0-37.0); MCV 93.2 fL (80.0-100.0); MPV 9.8 fl. (7.2-11.1); RBC 3.87 mil/uL (4.20-5.00); RDW-CV 15.8 % (10.5-14.5); WBC 7.8 thou/uL (4.0-11.0)
[2019-03-12 07:43] LABS: CALCIUM 9.3 mg/dL (8.5-10.1); CREATININE 2.5 mg/dL (0.6-1.3)
== END | disposition home or self-care (01) ==
LOC: M.SUR 07:00
PROVIDERS: Family Medicine
DX: E11.22 Type 2 diabetes mellitus with diabetic chronic kidney disease (principal); N18.6 End stage renal disease; J44.9 Chronic obstructive pulmonary disease, unspecified; Z88.0 Allergy status to penicillin; Z99.2 Dependence on renal dialysis; Z88.8 Allergy status to other drugs, medicaments and biological substances; Z79.899 Other long term (current) drug therapy; Z98.890 Other specified postprocedural states

== ENCOUNTER 2019-03-16 20:49 | Inpatient (IN) | payer OTHER ==
[~2019-03-16] VITALS: Ht 160 cm; Wt 59.9 kg
--- NOTE | ~2019-03-16 | CON ---
[address] [address] CONSULTATION Name: OWEN MARCANO Room: [address] IN M.R.#: [id number] Admission: 03/16/19 Attend Phys: Johny Franco Discharge: Date of : 40 Report #: [id number] THIS REPORT FOR: //name// CC: Tima Read DATE OF SERVICE: 03/17/2019 NEPHROLOGY CONSULTATION: CONSULTING PHYSICIAN: Dr. Read. REASON FOR NEPHROLOGY CONSULTATION: End-stage renal disease, on maintenance hemodialysis. REASON FOR ADMISSION: Shortness of breath. HISTORY OF PRESENT ILLNESS: This is a 78-year-old female with past medical history of COPD and end-stage renal disease and she is on hemodialysis every Sunday, and Sunday at [facility] under the care of Dr. Shearer. The patient did not undergo dialysis since , which was last week Sunday. The patient had a peritoneal dialysis catheter placed on the and after that her son and the patient was a little bit confused about her days and missed her appointments. Yesterday, she presented with shortness of air. Her BUN is also 142. She, this morning, is saying that she is feeling okay, but she does look a little short of breath and tachypneic. She has a right IJ tunneled dialysis catheter currently in place, which is used for dialysis. ALLERGIES: PENICILLIN, TETRACYCLINE and ERYTHROMYCIN BASE. REVIEW OF SYSTEMS: As mentioned in history of present illness, otherwise negative. PAST MEDICAL AND SURGICAL HISTORY: Include end-stage renal disease. She is on hemodialysis every Sunday, and Sunday; peritoneal dialysis catheter placed just last week on 03/11/2019, she has a tunneled dialysis catheter in right IJ, lens implants, diabetes type 2, hypertension, COPD. HOME MEDICATIONS: Include montelukast, ezetimibe, calcium carbonate, lisinopril, albuterol sulfate, pravastatin, furosemide, clonidine, carvedilol, nifedipine, hydralazine, folic acid, cetirizine, ipratropium, meclizine, hydrocodone, clopidogrel. FAMILY HISTORY: [place] [address] CONSULTATION Name: OWEN MARCANO Room: [address] IN [facility].#: [id number] Admission: 03/16/19 Attend Phys: Johny Franco Discharge: Date of : 40 Report #: [id number] SOCIAL HISTORY: She does smoke. No history of illicit drug use or alcohol reported. She lives at home. PHYSICAL EXAMINATION: VITAL SIGNS: Blood pressure is 150/58, pulse rate is 91, respiratory rate is 20, temperature is 36.8. She is on 3 liters of oxygen by nasal cannula and her pulse ox is 93%. GENERAL: She is drowsy, but arousable and awake and otherwise oriented x 3. HEAD AND EYES: Atraumatic, normocephalic and mucous membranes are moist. NECK: There is no JVD. CHEST: Bilateral diminished breath sounds anteriorly. No crackles heard anteriorly. CARDIOVASCULAR: S1, S2 normal. No murmurs. ABDOMEN: Soft, nondistended, nontender, bowel sounds are present. EXTREMITIES: No lower extremity edema. ABDOMEN: There is a peritoneal dialysis catheter placed on the left side and there is a dressing in place. So, I did not remove the dressing. Right IJ tunneled dialysis catheter, the site was not tender or erythematous and there was no drainage noticed. NEUROLOGIC: Gross neurological function seems to be intact. She has generalized weakness. PSYCHIATRIC: Mood seems to be normal. LABORATORY DATA: Hemoglobin 11.4, BUN is 141, potassium 5.3, sodium is 131, and troponin was 0.07. Other labs were reviewed. IMAGING: Chest x-ray was reviewed. ASSESSMENT: 1. End-stage renal disease, on hemodialysis Sunday, and Sunday; last dialysis was on 03/10/2019. 2. Mild hyperkalemia. 3. Mild hyponatremia. 4. Azotemia. 5. Mild fluid overload and acute respiratory failure. PLAN: 1. Although the patient is trying to transition to PD, she is not on PD yet, we will dialyze her today since she has not been dialyzed since early last week, 3 hours of dialysis today and then dialysis will begin planning for tomorrow. 2. Hemoglobin 11.4, [place] [address] CONSULTATION Name: OWEN MARCANO Room: [address] IN .R.#: [id number] Admission: 03/16/19 Attend Phys: Johny Franco Discharge: Date of : 40 Report #: [id number] Thank you, discussed with the patient as well as patient's nurse. We will continue to follow along with you for dialysis needs. By: [id number] [id number] Pinto MD /belkis
[~2019-03-16 20:49] MED LIST changes: -CLONIDINE HCL0.3 M3 TRANSDERM
[2019-03-16 20:55] VITALS: BP 161/75
[2019-03-16 21:49] LABS: BE -6.2 mmol/L (-2 to +3); PCO2 38.3 mmHg (35.0-45.0); PO2 70.7 mmHg (75.0-100.0); pH 7.321 (7.340-7.450)
[2019-03-16 21:57] LABS: ABSOLUTE BASOPHILS 0.1 thou/uL (0.0-0.2); ABSOLUTE EOSINOPHILS 0.3 thou/uL (0.0-0.7); ABSOLUTE LYMPHOCYTES 1.8 thou/uL (0.8-5.3); ABSOLUTE MONOCYTES 1.1 thou/uL (0.0-1.2); ABSOLUTE NEUTROPHILS 8.1 thou/uL (1.6-8.1); HEMATOCRIT 34.2 % (37.0-47.0); HEMOGLOBIN 11.4 gm/dL (12.0-15.0); MCH 31.5 pg (26.0-34.0); MCHC 33.4 g/dL (28.0-37.0); MCV 94.4 fL (80.0-100.0); MONOCYTES 9.9 %; MPV 9.9 fl. (7.2-11.1); NUCLEATED RBCS 0 /100WBC; PLATELET COUNT* 349 thou/uL (150-400); POLYS 70.1 %; RBC 3.62 mil/uL (4.20-5.00); RDW-CV 15.7 % (10.5-14.5); WBC 11.5 thou/uL (4.0-11.0)
[2019-03-16 22:04] LABS: CALCIUM 8.9 mg/dL (8.5-10.1); CREATININE 4.5 mg/dL (0.6-1.3); POTASSIUM 5.3 mmol/L (3.5-5.1)
[2019-03-16 22:08] LABS: INR 1.1; PROTIME 11.7 Seconds (9.20-11.50)
[2019-03-16 22:17] LABS: TOTAL BILIRUBIN 0.4 mg/dL (<0.1-1.0); TOTAL PROTEIN 7.2 g/dL (6.4-8.2); TROPONIN-I LEVEL 0.08 ng/mL (<0.06)
[2019-03-16 23:27] VITALS: BP 146/61
--- NOTE | 2019-03-17 03:06 | NUR ---
PT ADMIT TO ROOM 225 FROM ED. ALERT ORIENTED. AT TIMES SPEACH DIFFICULT TO UNDERSTAND DUE TO DENTURES SLIPPING WHEN SHE SPEAKS. DENIES PAIN. TELEMETRY SHOWS AFIB. MED REC WITH UNKNOWN DATE AND TIME FOR MEDICATIONS. PT IS A POOR HISTORIAN AND FORGETFUL ABOUT MEDICATIONS. SHE STATES MY TAKES CARE OF ALL THAT. UP WITH ASSIST TO BR. ELIJAHO FOR NOW.
[2019-03-17 04:00] VITALS: BP 133/55
[2019-03-17 07:45] VITALS: BP 150/58
[2019-03-17 12:55] VITALS: BP 148/62
--- NOTE | 2019-03-17 16:05 | NUR ---
Pt off of unit in dialysis. Pt lives at home with . Pt dtr supportive. Pt goes to [facility] in [place]. Pt has needed DME. SW to continue to follow to assist with safe dc planning.
[2019-03-17 16:30] VITALS: BP 144/66
--- NOTE | 2019-03-17 17:05 | EKG ---
[place] [address] ELECTROCARDIOGRAM REPORT Name: OWEN MARCANO Room: [address] ADM IN M.R.#: [id number] Admission: 03/16/19 Attend Phys: Johny Franco Discharge: Date of : 40 Report #: [id number] THIS REPORT FOR: //name// [facility] ED Test Date: 2019-03-16 Test Time: 20:59:09 Pat Name: OWEN MARCANO Department: Room: [facility] Gender: F Chief Technologist: Lorraine LANGE : 1940 Requested By: Yael Wood Order Number: [id number] MD: Mynor Rice Measurements Intervals [place] Rate: 103 P: [place]: QRS: -17 QRSD: 131 T: 65 QT: 384 QTc: 503 Interpretive Statements Atrial fibrillation IVCD, consider atypical LBBB Compared to ECG 11/28/2018 10:51:26 Sinus rhythm no longer present Electronically Signed On 03-17-2019 17:04:58 CDT by Mynor Rice [email or web address] <ELECTRONICALLY SIGNED> By: Mynor Rice MD, [facility] 03/17/19 1704 58 58 Mynor Rice MD, [facility] /EPI
--- NOTE | 2019-03-17 19:57 | NUR ---
ASSUMED PT CARE AT 0730, FULL ASSESMENT DONE CHARTED. PT A/O X4, DROWSY AT TIMES.PT HAD DIALYSIS TODAY, VSS, SR/1STAVB/BBB/PVCS ON THE MONITOR. PT C/O SOME RIGHT FLANK PAIN. DENIES NEED FOR PAIN MEDS. UP WITH 1 ASSIST. WAS WEAK AFTER DIALYSIS. NO APITITE, BROUGHT PT SOME PROTEIN SHAKES FROM HOME. INSULIN GIVEN PER DEC. PT HAS PRESSURE SORE ON RIGHT BUTTOCK, REPORTS IT HAS BEEN THERE "A WHILE" AND IT HEALS UP AND THEN COMES BACK. PT TURNED Q2 HRS. PT TO HAVE DIALYSIS TOMORROW. UPDATED PT AND ON PLAN OF CARE. REPORT GIVEN TO PATRICIA WISE
[2019-03-17 20:00] VITALS: BP 112/41
--- NOTE | 2019-03-17 20:00 | NUR ---
RECEIVED REPORT AND ASSUMED CARE OF PT, ASSESSMENT COMPLETED. PT FLAT AFFECT, WILL NOT VOLUNTEER CONVERSATION. O2 ON AT 4L/NC. TELEMETRY ON SHOWING SR WITH BBB. WILL CONT TO MONITOR AND ASSIST NEEDED.
[2019-03-18] VITALS: BP 118/41
--- NOTE | 2019-03-18 00:15 | NUR ---
PT HAD 2 EPISODES OF VOMITING COFFEE GROUND EMESIS. STATES SHE STILL FEELS NAUSEATED. HS MEDS HELD EARLIER DUE TO NAUSEA. DR RUIZ NOTIFIED OF ABOVE WITH ORDERS RECEIVED.
[2019-03-18 04:00] VITALS: BP 127/43
[2019-03-18 05:07] LABS: ALBUMIN 2.8 g/dL (3.4-5.0); CALCIUM 8.9 mg/dL (8.5-10.1); CREATININE 3.7 mg/dL (0.6-1.3); MAGNESIUM 2.1 mg/dL (1.8-2.4); PHOSPHORUS* 7.4 mg/dL (2.5-4.9)
[2019-03-18 05:27] LABS: ABSOLUTE LYMPHOCYTES 1.1 thou/uL (0.8-5.3); ABSOLUTE MONOCYTES 1.4 thou/uL (0.0-1.2); ABSOLUTE NEUTROPHILS 8.3 thou/uL (1.6-8.1); BASOPHILS 0.1 %; HEMOGLOBIN 10.7 gm/dL (12.0-15.0); LYMPHOCYTES 10.1 %; MCH 32.3 pg (26.0-34.0); MCHC 34.4 g/dL (28.0-37.0); MCV 93.8 fL (80.0-100.0); MONOCYTES 12.6 %; MPV 9.8 fl. (7.2-11.1); NUCLEATED RBCS 0 /100WBC; PLATELET COUNT* 384 thou/uL (150-400); POLYS 77.2 %; RDW-CV 16.3 % (10.5-14.5); WBC 10.8 thou/uL (4.0-11.0)
--- NOTE | 2019-03-18 05:34 | NUR ---
NO FURTHER EMESIS SINCE MIDNIGHT. NO FLUIDS TAKEN IN. ASSISTED WITH REPOSITIONING IN BED. O2 REMAINS ON. NO FURTHER CHANGE IN ASSESSMENT. HS GOALS OF REST AND SAFETY ACHIEVED. HOURLY ROUNDING OBSERVED.
--- NOTE | 2019-03-18 10:12 | EKG ---
[place] [address] ELECTROCARDIOGRAM REPORT Name: OWEN MARCANO Room: [address] ADM IN M.R.#: [id number] Admission: 03/16/19 Attend Phys: Johny Franco Discharge: Date of : 40 Report #: [id number] THIS REPORT FOR: //name// [facility] Test Date: 2019-03-17 Test Time: 08:46:33 Pat Name: OWEN MARCANO Department: Room: [address] Gender: F Customer Support Analyst: CCD : 1940 Requested By: Partha Read Order Number: [id number] Kamran MD: Jesus Erwin Measurements Intervals [place] Rate: 91 P: 0 [place]: 179 QRS: 93 QRSD: 128 T: 50 QT: 413 QTc: 509 Interpretive Statements Atrial fibrillation Ventricular premature complex Left bundle-branch block Compared to ECG 11/28/2018 10:51:26 Ventricular premature complex(es) now present Electronically Signed On 03-18-2019 10:12:15 CDT by Jesus Erwin [email or web address] <ELECTRONICALLY SIGNED> By: Jesus Erwin MD, [facility] 03/18/19 [id number] [id number] Jesus Erwin MD, [facility] /EPI
--- NOTE | 2019-03-18 11:25 | NUR ---
PT BACK FROM DIALYSIS AT 11:05. BED BATH GIVEN. PT VOMITED SCANT AMOUNT OF COFFEE GROUND COLORED VOMIT. ZOFRAN TO BE GIVEN ORDERED. PT NOW USING BEDSIDE COMMODE.
[2019-03-18 12:00] VITALS: BP 168/51
[2019-03-18 16:06] VITALS: BP 126/40
--- NOTE | 2019-03-18 17:00 | NUR ---
ASSUMED PT CARE AT 0715 PT WAS HAVING DIALYSIS THIS AM . CAME BACK FROM DIALYSIS AT 11:00 AM. PT IS AOX4 VITAL SIGNS TAKEN. ON 4 L NC AND O2 SATURATION IS 94%. BED BATH GIVEN. ZOFRAN GIVEN FOR VOMITING. MIRALAX, LACTULOSE GIVEN FOR CONSTIPATION. DUCOLAX TO BE GIVEN SOON ORDERED. TESSIO CATHETER IS INTACT. AM MEDICINE NOT GIVEN DUE TO PT NOT BEING ON THE FLOOR. WILL CONTINUE TO MONITOR.
--- NOTE | 2019-03-18 17:08 | NUR ---
WOUND CARE NOTE: CONSULT FOR STAGE 1 PU RIGHT BUTTOCK PT HAS HEALING STG 1 PU ON RIGHT BUTTOCK THAT MEASURES 0.6X0.5X0.0 WITH A LILI WOUND MEASURING 1.5X2.2X0.0. SOME OF THE CENTER OF THE WOUND DOES VAISHALI. THERE APPEARS TO BE SOME SCAR TISSUE WELL. PT STATES SHE HAS HAD IT A WHILE. SHE TENDS TO SIT A LOT AT HOME. PT IS A DIALYSIS PT AND DIABETIC. PT HAS HAD A POOR APITITE, SHE WAS ENCOURAGED TO DRINK HER PROTEIN SHAKES SHE LIKES. PT ALSO INSTRUCTED TO TURN AND OFFLOAD Q 2 HR. PT VERBALIZED UNDERSTANDING. THE PTS BUTTOCK WAS WASHED WITH SOAP AND WATER, AND COVERED WITH BARRIOR CREAM. PT TOLERATED THIS WELL AND DENIES PAIN.
--- NOTE | 2019-03-18 18:12 | NUR ---
PT HAD SMALL BOWEL MOVEMENT ON 03/18/19 AT 1700 .DARK BROWN IN COLOR AND HARD CONSISTENCY.
[2019-03-18 20:00] VITALS: BP 145/42
[2019-03-19] VITALS (7 sets, daily range): BP systolic 117–132; BP diastolic 32–42
--- NOTE | 2019-03-19 05:40 | NUR ---
ASSUMED CARE OF PT AFTER REPORT AT 1930. PT A&OX4. VSS. PHYSICAL ASSESSMENT COMPLETED AND CHARTED. PT ON O2 AT 4L NC. PT TRACING SR/BBB/PVC ON TELE. PT UPSTANDBY TO BSC. PT DENIES ANY PAIN OR DISCOMFORT. PT TURNED TO SIDES. NO EPISODE OF NAUSEA OR VOMITING THROUGH THE NIGHT. PT RESTED WELL ON BED. CALL LIGHT WITHIN REACH.
[2019-03-19] MEDS ORDERED: NOVOLIN N100 UNIT/3 SUBQ (14:27)
--- NOTE | 2019-03-19 16:27 | NUR ---
ASSESSMENT COMPLETE. PT ALERT AND ORIENTED X4. PT AT BEDSIDE THROUGHOUT THE DAY. PT DID NOT EAT MEALS, HOME PROTEIN SHAKE DRANK X1 TODAY. PT ACCU CHECK. PT REFUSED LACTULOSE, SENNA GIVEN. PT REPORTS BM YESTERDAY AFTER SUPPOSITORY. DRESSING TO PD INTACT WITH SMALL SPOT OF DRAINAGE NOTED. ISO FOR HX MRSA. NSR WITH BBB ON TELE MONITOR. BP LOW, SEE VITALS SIGNS. PT IS ON 4L PER NC WHICH SHE DOES NOT WEAR AT HOME. DR BASILIO CONSULTED TO CHANGE DRESSING TO PD, HAS NO ROUNDED YET. PT Q2 TURN. SEE ASSESSMENT AND VITALS FOR OTHER DETAILS, CALL LIGHT WITHIN REACH, WILL CONTINUE PLAN OF CARE
[2019-03-20 04:00] VITALS: BP 105/26
[2019-03-20 04:49] LABS: ABSOLUTE MONOCYTES 1.1 thou/uL (0.0-1.2); ABSOLUTE NEUTROPHILS 8.7 thou/uL (1.6-8.1); BASOPHILS 0.1 %; EOSINOPHILS 0.1 %; HEMATOCRIT 29.1 % (37.0-47.0); HEMOGLOBIN 9.4 gm/dL (12.0-15.0); LYMPHOCYTES 16.6 %; MCH 30.8 pg (26.0-34.0); MCHC 32.3 g/dL (28.0-37.0); MCV 95.4 fL (80.0-100.0); MONOCYTES 9.3 %; MPV 9.2 fl. (7.2-11.1); NUCLEATED RBCS 0 /100WBC; PLATELET COUNT* 317 thou/uL (150-400); POLYS 73.9 %; RBC 3.05 mil/uL (4.20-5.00); RDW-CV 16.8 % (10.5-14.5); WBC 11.8 thou/uL (4.0-11.0)
[2019-03-20 05:09] LABS: ALBUMIN 2.5 g/dL (3.4-5.0); CALCIUM 8.6 mg/dL (8.5-10.1); CREATININE 4.2 mg/dL (0.6-1.3); PHOSPHORUS* 6.4 mg/dL (2.5-4.9); POTASSIUM 4.4 mmol/L (3.5-5.1)
--- NOTE | 2019-03-20 06:09 | NUR ---
ASSUMED CARE OF PT AFTER REPORT AT 1930. PT A&OX4. VSS. PHYSICAL ASSESSMENT COMPLETED AND CHARTED. PT ON O2 AT 4L NC. PT TRACING SR/BBB/1ST DEG ON TELE. PT UPSTANDBY TO BSC. PT COMPLAINED OF EPIGASTRIC PAIN. WHEN GIVING MEDS WITH APPLE SAUCE-PT KEEPS ON COUGHING AND CANT TAKE PILLS DOWN. DR PAUL INFORMED WITH NEW ORDERS. PT DIASTOLIC BP WAS LOW THIS AM- PROVIDER MADE AWARE. ASYMPTOMATIC. PT RESTED WELL FOR THE REST OF THE NIGHT. HOURLY ROUNDING OBSERVED. CALL LIGHT WITHIN REACH.
[2019-03-20 11:48] VITALS: BP 123/54
[2019-03-20 16:20] VITALS: BP 128/60
--- NOTE | 2019-03-20 16:20 | NUR ---
SW continuing to follow to assist with safe dc planning; aware there is an inpt rehab consult as pt may need inpt rehab therapies prior to pt dc home with . SW called pt dtr and left message to call back to discuss safe dc planning, SW to discuss with pt and pt if needed as well.
[2019-03-20 20:00] VITALS: BP 87/28
[2019-03-20 20:01] VITALS: BP 90/36
[2019-03-20 23:49] VITALS: BP 91/39
[2019-03-21] VITALS (12 sets, daily range): BP systolic 87–123; BP diastolic 25–43
[2019-03-21 04:41] LABS: HEMATOCRIT 31.4 % (37.0-47.0); HEMOGLOBIN 10.4 gm/dL (12.0-15.0); MCH 31.7 pg (26.0-34.0); MCV 95.8 fL (80.0-100.0); MPV 9.4 fl. (7.2-11.1); NUCLEATED RBCS 0 /100WBC; PLATELET COUNT* 328 thou/uL (150-400); RBC 3.28 mil/uL (4.20-5.00); RDW-CV 16.7 % (10.5-14.5)
[2019-03-21 04:46] LABS: CALCIUM 8.5 mg/dL (8.5-10.1); POTASSIUM 4.2 mmol/L (3.5-5.1)
[2019-03-21 05:31] LABS: ABSOLUTE MONOCYTES 0.7 thou/uL (0.0-1.2); ABSOLUTE NEUTROPHILS 12.3 thou/uL (1.6-8.1)
[2019-03-21 05:32] LABS: ANISOCYTOSIS 1+; PLATELET ESTIMATE ADEQUATE; POIKILOCYTOSIS 1+
--- NOTE | 2019-03-21 05:43 | NUR ---
ASSUMED CARE OF PT AFTER REPORT AT 1930. PT A&OX4. PHYSICAL ASSESSMENT COMPLETED AND CHARTED. PT ON O2 AT 2L NC. PT TRACING SR/1ST DEG/BBB ON TELE. PT UPSTANDBY TO BSC. PT COMPLAINED OF HEADACHE & NAUSEA- MEDS GIVEN PER MAR. PT HAS EPISODE OF LOW BP-DR HEREDIA INFORMED. PT RESTED WELL ON BED. CALL LIGHT WITHIN REACH.
--- NOTE | 2019-03-21 09:18 | NUR ---
Nutrition: screen for "pressure wound." novelty twister tender noted to be stage I. Pt has protein shakes from home, refused Nepro. Defer full assessement at this time.
--- NOTE | 2019-03-21 12:24 | NUR ---
ASSUMED PT CARE REPORT RECEIVED FROM NIGHT NURSE. PT IS AOX4 SR ON TABLEAU LEAD. ON 2 L NC SATURATION IS 96%. PT BP IS ON THE SOFT SIDE. SEE CHART. NO BP MEDICINE GIVEN. LASIX ALONG WITH OTHER MORNING MEDICATIONS WERE GIVEN ORDERED. PT BP 89/26 AT NOON. PT PLACED ON TRENDE[place]BURG POSITION. BP NOW AT 98/31. PT STATES SHE FEELS DIZZIY. HOSPTIALIST MADE AWARE. NO ORDER RECEIVED. CALL PLACED TO RENAL DR . MESSAGE LEFT TO ANSWERING SERVICE. WILL CONTINUE TO MONITOR BP
--- NOTE | 2019-03-21 12:39 | NUR ---
SW called and spoke with pt about dc planning. SW explained doctor's recommendation for inpt rehab and discussed the insurance auth process and then pt agreeable to option of inpt rehab pending acceptance and insurance auth. But pt said that after hx of [facility] SNF, pt says that he will reject SNF as a dc option. Pt clarified that he is the caregiver for pt at home. SW to continue to follow to assist with safe dc planning.
--- NOTE | 2019-03-21 18:56 | NUR ---
PT IS AOX4 SR ON VP STRATEGIC PLANNING. PT HAS BEEN FEELING WEAK DURING THE WHOLE SHIFT. BP IS ON THE LOW SIDE FRO MOST OF THE SHIFT. SEE CHART. 500 BOLUS NS GIVEN ORDERED. ANOTHER 500 CC INFUSING G AT THIS TIME. BP BEING MONITOR Q30 MINUTES. IV ABX GIVEN POST CHEST XRAY SHOWING CONSOLIDATION. ASPIRATION PRECAUTION MAINTAINED BY KEEPING HOB ELEVATED AT 30 DEGREE AT TIME. TEMPT IS STABLE DURING WHOLE SHIFT SEE CHART. PT HAS NO COMPLAINT BESIDES FEELING WEAK AND DIZZY AND PAIN IN ABDOMEN. PT HAD AN EPSISODE OF MODERATE AMNT OF BM TODAY. PT LAYING IN BED. CALL LIGHT AT REACH. LACTIC ACID IS TRENDING DOWN. TROP NEG. EKG NORMAL. SEE CHART. WILL CONTINUE TO MONITOR VS.
[2019-03-22] VITALS (21 sets, daily range): BP systolic 86–133; BP diastolic 22–58
--- NOTE | 2019-03-22 03:21 | NUR ---
ASSUMED PT CARE AT 1930. ASSESSMENT COMPLETED CHARTED. WATCHING PT BLOOD PRESSURE DUE TO BEING LOW. ABLE TO MAKE NEED KNOWN. PT RESTING IN BED AT THIS TIME. C/O SIDE PAIN AND GAVE PRN TYLENOL. UP WITH ASSIST TO BSC. BANDAGE STILL OVER STOMACH. WILL CONTINUE TO MONITOR.
[2019-03-22 04:59] LABS: ABSOLUTE LYMPHOCYTES 1.8 thou/uL (0.8-5.3); ABSOLUTE MONOCYTES 1.2 thou/uL (0.0-1.2); ABSOLUTE NEUTROPHILS 12.2 thou/uL (1.6-8.1); BASOPHILS 0.2 %; EOSINOPHILS 0.2 %; HEMATOCRIT 29.2 % (37.0-47.0); HEMOGLOBIN 9.5 gm/dL (12.0-15.0); LYMPHOCYTES 11.5 %; MCH 31.3 pg (26.0-34.0); MCHC 32.6 g/dL (28.0-37.0); MONOCYTES 7.9 %; MPV 9.5 fl. (7.2-11.1); NUCLEATED RBCS 0 /100WBC; PLATELET COUNT* 324 thou/uL (150-400); POLYS 80.2 %; RBC 3.04 mil/uL (4.20-5.00); RDW-CV 16.8 % (10.5-14.5); WBC 15.3 thou/uL (4.0-11.0)
[2019-03-22 05:07] LABS: CALCIUM 8.2 mg/dL (8.5-10.1); POTASSIUM 4.4 mmol/L (3.5-5.1)
[2019-03-22 05:11] LABS: CREATININE 4.2 mg/dL (0.6-1.3)
--- NOTE | 2019-03-22 17:35 | NUR ---
PT IS 78 Y/O FEMALE TRANSFERRED TO ICU BED 8 FOR HYPOTENSION AND CLOSER MONITORING PER DR. RUIZ. PT AXOX4. AFEBRILE. DENIES PAIN AT TIME OF TRANSFER. PT PLACED ON O2 AT 2L PER NC. PT STATES SHE DOES NOT WEAR O2 AT HOME. PT REFUSED DIALYSIS TODAY, WHEN ASKED WHY, PT STATED, "I'M JUST TIRED AND GOING [place] FAST." PT STATES HER SON APPROXIMATELY ONE WEEK AGO FROM COPD. REASSURANCE AND SUPPORT PROVIDED TO PT. IVF. PT'S EXTREMELY CONCERNED THAT PT'S PERITONEAL DIALYSIS CATHETER DRESSING HAS NOT BEEN CHANGED SINCE THE PLACEMENT ON 03/11/19. PERITONEAL DIALYSIS CATHETER DRESSING CHANGED. SITE LOOKS GOOD, SLIGHTLY ECCHMYOTIC, WITH STERI STRIPS IN PLACE. PT INFORMED OF PLAN OF CARE/GOALS UPON ARRIVAL TO ICU. ORIENTED TO ROOM. FAMILY INFORMED OF PLAN OF CARE WELL. PT REMAINS FULL CODE AT THIS TIME. GOALS AFTER COMING TO ICU: MONITOR B/P, PROMOTE NUTRITION, ALLOW EXPRESSION OF GRIEF/FEELINGS, SKIN CARE.
--- NOTE | 2019-03-22 18:43 | NUR ---
PT ALERT AND ORIENTED. TELE TRACKING SR WITH 1ST AVB. HYPOTENSIVE THROUGHOUT SHIFT- MD AWARE. ABLE TO TITRATE O2 TO 2L NC. REFUSED HD TODAY. TRANSFER TO ICU AT APPROX 1800. FAMILY WAITING IN WAITING ROOM.
[2019-03-23] VITALS (43 sets, daily range): BP systolic 75–150; BP diastolic 21–54
[2019-03-23 04:04] LABS: ABSOLUTE LYMPHOCYTES 1.2 thou/uL (0.8-5.3); ABSOLUTE MONOCYTES 0.8 thou/uL (0.0-1.2); ABSOLUTE NEUTROPHILS 10.3 thou/uL (1.6-8.1); BASOPHILS 0.1 %; HEMATOCRIT 27.6 % (37.0-47.0); HEMOGLOBIN 8.9 gm/dL (12.0-15.0); LYMPHOCYTES 9.7 %; MCH 31.2 pg (26.0-34.0); MCHC 32.2 g/dL (28.0-37.0); MCV 96.9 fL (80.0-100.0); MONOCYTES 6.1 %; MPV 9.2 fl. (7.2-11.1); NUCLEATED RBCS 0 /100WBC; PLATELET COUNT* 341 thou/uL (150-400); POLYS 84.1 %; RBC 2.85 mil/uL (4.20-5.00); WBC 12.3 thou/uL (4.0-11.0)
[2019-03-23 04:13] LABS: CALCIUM 8.2 mg/dL (8.5-10.1); CREATININE 4.9 mg/dL (0.6-1.3); POTASSIUM 4.8 mmol/L (3.5-5.1)
--- NOTE | 2019-03-23 05:38 | NUR ---
PT. PROGRESSING TOWARDS GOALS. REMAINS ON 2L O2. PT. ATE HALF OF TUNA SANDWICH FOR DINNER. DIASTOLIC BP REMAINS LOW, MAP ADEQUATE. SINUS RHYTHM W/ BBB. TURNED Q2H. PT. HAS SLEPT WELL THROUGHOUT SHIFT. CALL LIGHT REMAINS IN REACH, WILL CONTINUE TO MONITOR.
--- NOTE | 2019-03-23 07:04 | NUR ---
PT. UP TO BSC STAND BY ASSIST. 200 CC FOUL/CONCENTRATED URINE.
--- NOTE | 2019-03-23 17:51 | NUR ---
PATIENT ALERT AND ORIENTED x4. BP SOFT IN THE MORNING BUT PT ASYMPTOMATIC, VSS O2 SATS >95% WITH 2L NC. PT VOIDED ONCE PER BSC, 1 PERSON ASSIST AND WEAK. ENCOURAGED ON DIET. IV FLUID DC'd PER NEPHROLOGY. BLOOD SUGAR MGMT PER PROOCOL. SPONGE BATH PROVIDED.
[2019-03-24] VITALS (21 sets, daily range): BP systolic 114–177; BP diastolic 41–145
[2019-03-24 03:52] LABS: ABSOLUTE EOSINOPHILS 0.1 thou/uL (0.0-0.7); ABSOLUTE MONOCYTES 0.8 thou/uL (0.0-1.2); ABSOLUTE NEUTROPHILS 6.5 thou/uL (1.6-8.1); BASOPHILS 0.3 %; HEMATOCRIT 27.3 % (37.0-47.0); HEMOGLOBIN 8.8 gm/dL (12.0-15.0); LYMPHOCYTES 20.8 %; MCH 31.1 pg (26.0-34.0); MCHC 32.3 g/dL (28.0-37.0); MCV 96.3 fL (80.0-100.0); MPV 8.7 fl. (7.2-11.1); NUCLEATED RBCS 0 /100WBC; PLATELET COUNT* 349 thou/uL (150-400); POLYS 68.9 %; RBC 2.84 mil/uL (4.20-5.00); RDW-CV 16.8 % (10.5-14.5); WBC 9.4 thou/uL (4.0-11.0)
[2019-03-24 04:01] LABS: CREATININE 5.2 mg/dL (0.6-1.3); POTASSIUM 4.1 mmol/L (3.5-5.1)
--- NOTE | 2019-03-24 06:35 | NUR ---
VSS. PT HAS DENIED PAIN AND SOA THIS SHIFT. PT HAS BEEN TURNED Q2HR THROUGHOUT THE NIGHT. CALL LIGHT WITHIN REACH.
--- NOTE | 2019-03-24 09:40 | CON ---
[address] [address] CONSULTATION Name: OWEN MARCANO Room: [address] IN M.R.#: [id number] Admission: 03/16/19 Attend Phys: Johny Franco Discharge: Date of : 40 Report #: [id number] THIS REPORT FOR: //name// CC: Tima Read CARDIOLOGY CONSULTATION INDICATION: Hypotension. HISTORY OF PRESENT ILLNESS: The patient is a 78-year-old white female who is known to myself. She follows for diastolic heart failure in the office. The patient was admitted to the hospital several days ago, complaining of being "sick." During her hospitalization, she has had issues with poor oral intake, which is gradually improving. She has left upper lobe pneumonia, recently noted. Two days prior, she was having significant trouble with hypotension. The patient was transferred to the ICU for closer monitoring. At this time, the patient appears to be slightly improved. She does have end-stage renal disease and is dialysis dependent. She had missed a few days of dialysis prior to being admitted to the hospital. Of note, her son just a few days prior to this. Presently, she denies any chest pain. She is not having much in the way of shortness of breath. She does take 80 mg of Lasix orally daily as she continues to have decent urine output despite her renal failure. Her antihypertensive medications have been held. In the past, she would have a pattern of hypertension, predialysis followed by mild hypotension post-dialysis. PAST MEDICAL HISTORY: 1. Chronic diastolic heart failure. 2. Bilateral carotid artery disease. 3. Essential hypertension. 4. End-stage renal disease, on dialysis. 5. Type 2 diabetes mellitus. 6. History of tobacco use. 7. COPD. ALLERGIES: ERYTHROMYCIN, PENICILLIN, TETRACYCLINE. HOME MEDICATIONS: Singulair 10 mg at bedtime, carvedilol 12.5 mg b.i.d., Combivent inhaler t.i.d., nifedipine 60 mg daily, clonidine patch transdermally one weekly, Zetia 10 mg daily, calcium carbonate p.r.n., lisinopril 10 mg daily, albuterol two puffs q.8 hours p.r.n., Pravachol 40 mg at bedtime, furosemide 80 mg daily, hydralazine 100 mg b.i.d., renal vitamins daily, Zyrtec 10 mg daily, meclizine 25 mg p.r.n., [place] 5/325 q.6 hours p.r.n., Plavix 75 mg daily. FAMILY HISTORY: Positive [place] [address] CONSULTATION Name: BISHOPOWEN SIMON Room: [address] IN M.R.#: [id number] Admission: 03/16/19 Attend Phys: Johny Franco Discharge: Date of : 40 Report #: [id number] SOCIAL HISTORY: The patient smokes a pack of cigarettes daily prior to hospitalization. She does not drink alcohol. PHYSICAL EXAMINATION: VITAL SIGNS: Blood pressure 111/39, pulse 90 and regular. GENERAL: This is a thin, elderly female who does not appear to be in distress. HEENT: Head is normocephalic, atraumatic. Extraocular muscles intact. Mucous membranes moist. NECK: Shows no jugular venous distention. CHEST: Reveals clear breath sounds that are diminished. CARDIOVASCULAR: Regular rhythm without gallop or murmur. ABDOMEN: Reveals soft abdomen that is without mass. EXTREMITIES: Show no edema. SKIN: Dry. DIAGNOSTIC DATA: Chest x-ray shows left upper lobe infiltrate without significant volume overload. IMPRESSION AND RECOMMENDATION: 1. Chronic diastolic heart failure, appears to be well compensated at present. I would hold her Lasix for a day or two as she is likely somewhat volume under loaded due to poor p.o. intake for the past several days. We will likely have to resume this at some point in time. We will follow. She does not appear to be having acute exacerbation of her heart failure at this time. 2. Chronic left bundle-branch block on EKG with first-degree AV block, not significantly changed. 3. End-stage renal disease, dialysis per Nephrology. 4. Malnutrition. The patient's appetite is improving. She is able to swallow now. Hopefully, this will improve with nutritional supplements as well. 5. Chronic tobacco use. Smoking cessation discussed and advised. 6. Hypertension. Blood pressure actually low presently. She has been taken off of her multitude of antihypertensive medications. We will follow clinically and resume medicines as needed. 7. Bilateral carotid disease, presently stable. Continue Plavix. 8. Diabetes. Per primary physician. <ELECTRONICALLY SIGNED> By: Jesus Erwin MD, FACC 03/24/19 0940 1316 [id number] Erwin MD, FACC /nt
--- NOTE | 2019-03-24 13:23 | EKG ---
[place] [address] ELECTROCARDIOGRAM REPORT Name: OWEN MARCANO Room: [address] ADM IN M.R.#: [id number] Admission: 03/16/19 Attend Phys: Johny Franco Discharge: Date of : 40 Report #: [id number] THIS REPORT FOR: //name// [facility] Test Date: 2019-03-21 Test Time: 16:29:18 Pat Name: OWEN MARCANO Department: Room: [facility] Gender: F Fish Receiver: CHYNA : 1940 Requested By: Aquilino Simpson Order Number: [id number] Kamran MD: Mynor Rice Measurements Intervals [place] Rate: 74 P: 263 [place]: 196 QRS: -1 QRSD: 141 T: 35 QT: 554 QTc: 615 Interpretive Statements Sinus or ectopic atrial rhythm Left bundle branch block Compared to ECG 03/17/2019 08:46:33 Ectopic atrial rhythm now present Atrial fibrillation no longer present Ventricular premature complex(es) no longer present Electronically Signed On 03-24-2019 13:22:50 CDT by Mynor Rice [email or web address] <ELECTRONICALLY SIGNED> By: Mynor Rice MD, [facility] 03/24/19 1322 1629 1629 Mynor Rice MD, [facility] /EPI
--- NOTE | 2019-03-24 16:21 | NUR ---
PATIENT TOLERATED IV PLACEMENT BY PRAVEENA FROM INFUSION. AWAITING DIALYSIS.
[2019-03-25] VITALS (10 sets, daily range): BP systolic 133–157; BP diastolic 54–85
--- NOTE | 2019-03-25 11:00 | NUR ---
SPOKE WITH PT, , DTR, AND GRANDDAUGHTER. PT ALERT AND ORIENTED AND FOLLOWING THE CONVERSATION. REFUSES TO HAVE PT CONSIDERED FOR INPT REHAB HERE, 'I FIRED THAT DR. SARMIENTO AND I WON'T HAVE HIM STEPPING INTO HER ROOM. IF SHE IS IN REHAB HERE, SHE WILL HAVE TO SEE HIM.' DISCUSSED OTHER DISCHARGE OPTIONS INCLUDING SNF OR OTHER INPATIENT REHAB UNITS. REFUSES TO CONSIDER ANY SNF, 'SHE WAS AT [facility] BEFORE AND ONLY LASTED ABOUT 3 DAYS, I WON'T HAVE HER GOING BACK TO ANY SNF.' SAID HE HAS TAKEN CARE OF HER FOR YEARS AND CAN CONTINUE TO TAKE CARE OF HER. PT HAS A WHEELCHAIR AT HOME AND THERE IS A RAMP, SAID HE CAN CONTINUE TO TAKE HER TO HEMODIALYSIS TREATMENTS AT [facility]. PT HAD PERITONEAL CATHETER PLACED TWO WEEKS AGO, PER SHE CAN START PD TRAINING IN ANOTHER 2-4 WEEKS. GRANDDAUGHTER SAID SHE IS A ACCOUNT SERVICES REPRESENTATIVE AND SHE CAN HELP AT HOME ALSO. DAUGHTER HAS HER OWN HEALTH ISSUES SO CAN'T PROVIDE ANY PHYSICAL CARE FOR PT BUT COULD BE WITH HER. PT ALSO STATES SHE WANTS TO RETURN HOME AT DISCHARGE WITH HOME HEALTH. WILL SEE HOW PT DOES WITH PHYSICAL THERAPY AND THEN DISCUSS FURTHER WITH PT AND FAMILY. INSTANT POWDER SUPERVISOR NOTIFIED OF PT'S REFUSAL TO BE CONSIDERED FOR OUR INPATIENT REHAB UNIT.
--- NOTE | 2019-03-25 11:22 | NUR ---
PATIENT TOLERATED TRIP TO XRAY IN WC. CO NAUSEA ZOFRAN GIVEN. PT BATHED SELF WITH MINIMAL ASSIST. ENCOURAGED TO BE UP AND ABOUT.
--- NOTE | 2019-03-25 18:41 | NUR ---
PATIENT TO TRANSFER TO 3RD FLOOR. UP TO BSC.
[2019-03-26] VITALS: BP 122/48
[2019-03-26 04:33] VITALS: BP 130/61
[2019-03-26 05:45] LABS: CALCIUM 8.2 mg/dL (8.5-10.1); POTASSIUM 3.8 mmol/L (3.5-5.1)
[2019-03-26 05:50] LABS: CREATININE 3.4 mg/dL (0.6-1.3)
[2019-03-26 05:51] LABS: HEMATOCRIT 29.7 % (37.0-47.0); HEMOGLOBIN 9.7 gm/dL (12.0-15.0); MCH 31.4 pg (26.0-34.0); MCHC 32.6 g/dL (28.0-37.0); MCV 96.4 fL (80.0-100.0); MPV 8.8 fl. (7.2-11.1); NUCLEATED RBCS 0 /100WBC; PLATELET COUNT* 397 thou/uL (150-400); RBC 3.08 mil/uL (4.20-5.00); RDW-CV 16.9 % (10.5-14.5); WBC 11.4 thou/uL (4.0-11.0)
[2019-03-26 06:29] LABS: ABSOLUTE LYMPHOCYTES 2.3 thou/uL (0.8-5.3); ABSOLUTE MONOCYTES 1.4 thou/uL (0.0-1.2); ABSOLUTE NEUTROPHILS 7.8 thou/uL (1.6-8.1); PLATELET ESTIMATE ADEQUATE
[2019-03-26 06:30] LABS: ANISOCYTOSIS 1+; POIKILOCYTOSIS 1+
[2019-03-26 08:20] VITALS: BP 155/86
--- NOTE | 2019-03-26 10:20 | NUR ---
Nutrition: Reassessment note. Pt admitted with COPD exac. H/o ESRD on HD, DM, COPD. BG 44, BUN 63, cr 3.4, alb 2.5, prealb 17.8. Physician indicated malnutrition - defer. Appetite is better. CHO controlled diet. +BM yday. Wt is near usual of 132#. No nutrition interventions needed at this time. Mild risk.
[2019-03-26] MEDS ORDERED: CEFDINIR300 MG PO (12:31)
[2019-03-26 12:33] VITALS: BP 155/86
--- NOTE | 2019-03-26 14:45 | NUR ---
PT TO DISCHARGE TO HOME TODAY. SPOKE WITH PT AND ABOUT DISCHARGE NEEDS. THEY ARE IN AGREEMENT WITH HOME HEALTH, SAYS THEY HAVE USED [facility] IN THE PAST AND WANT TO USE THEM AGAIN. PT SAYS SHE HAS ALL DME AT HOME NEEDED. SAYS SHE DOESN'T HAVE A WALKER, PT SAID SHE WOULDN'T USE ONE IF SHE HAD IT. TOLD THEM THAT HOME HEALTH P.T. COULD EVALUATE HER AND IF NEEDED, COULD GET HER ONE. CALLED [facility], FAXED REFERRAL INFO. CALLED [facility] AND NOTIFIED THEM PT WOULD BE THERE FOR HER REGULAR OUTPT DIALYSIS TREATMENT TOMORROW, FAXED H&P, RENAL CONSULT, LAST TWO DIALYSIS FLOW SHEETS, DISCHARGE MED LIST.
--- NOTE | 2019-03-26 14:59 | NUR ---
PATIENT BLOOD SUGAR 41 THIS AM, JUICE AND BREAKFAST GIVEN. SUGAR DURING BREAKFAST WAS 76. PAITENT UP TO BATHROOM WITH ASSISTANCE. DRESSING TO ABD REMAINS DRY AND INTACT. PER PATIENT DRESSING CHANGE IS WEEKLY AT THE OFFICE, DRESSING WAS CHANGED 03/22. ATTEMPT TO CALL DR. BROTHERS TO LET HIM KNOW OF DISCHARGE BUT NO RETURN CALL. PATIENT TO [facility] REGULARLY SCHEDULED DIALYSIS TOMORROW. VERBALIZES UNDERSTANDING OF PAPERWORK AND SCRIPT. PATIENT AND EDUCATED ON TAKING BLOOD PRESSURE AND PULSE PRIOR TO ANY BLOOD PRESSURE MEDICATION, VERBALIZES UNDERSTANDING. PATIENT TAKEN OUT WITH VOLUNTEER VIA WHEELCHAIR AND ALL BELONGINGS.
--- NOTE | 2019-03-27 12:58 | NUR ---
NOTE PT WAS DISCHARGED FROM HOSPITAL BEFORE P.T. EVAL COULD BE COMPLETED.
== END 2019-03-26 15:02 | disposition home health service (06) | DRG 177 ==
LOC: M.ERS 20:49 → M.2W 22:14 → M.ICU 22:14 → M.TBA-ER 22:14 → M.2W 23:45 → M.ICU 03-22 17:35 → M.3W 03-25 19:42
PROVIDERS: Family Medicine; Personal Emergency Response Attendant; ADMIT Internal Medicine
PROC: 5A1D70Z Performance of Urinary Filtration, Intermittent, Less than 6 Hours Per Day (ICD-10-PCS; principal; 2019-03-17)
PROC: 5A1D70Z Performance of Urinary Filtration, Intermittent, Less than 6 Hours Per Day (ICD-10-PCS; 2019-03-18)
PROC: 5A1D70Z Performance of Urinary Filtration, Intermittent, Less than 6 Hours Per Day (ICD-10-PCS; 2019-03-20)
DX: J69.0 Pneumonitis due to inhalation of food and vomit (principal); A41.9 Sepsis, unspecified organism; N18.6 End stage renal disease; J96.21 Acute and chronic respiratory failure with hypoxia; R65.20 Severe sepsis without septic shock; J44.1 Chronic obstructive pulmonary disease with (acute) exacerbation; E87.1 Hypo-osmolality and hyponatremia; I50.32 Chronic diastolic (congestive) heart failure; I13.2 Hypertensive heart and chronic kidney disease with heart failure and with stage 5 chronic kidney disease, or end stage renal disease; E46 Unspecified protein-calorie malnutrition; Z96.1 Presence of intraocular lens; E11.22 Type 2 diabetes mellitus with diabetic chronic kidney disease; F17.210 Nicotine dependence, cigarettes, uncomplicated; E87.5 Hyperkalemia; I44.7 Left bundle-branch block, unspecified; I44.0 Atrioventricular block, first degree; E87.70 Fluid overload, unspecified; K59.03 Drug induced constipation; T40.2X5A Adverse effect of other opioids, initial encounter; R13.10 Dysphagia, unspecified; I95.9 Hypotension, unspecified; I25.10 Atherosclerotic heart disease of native coronary artery without angina pectoris; R62.7 Adult failure to thrive; F32.9 Major depressive disorder, single episode, unspecified; Z99.2 Dependence on renal dialysis; Z79.899 Other long term (current) drug therapy; Z88.0 Allergy status to penicillin; Z88.8 Allergy status to other drugs, medicaments and biological substances; Z87.01 Personal history of pneumonia (recurrent); Z82.49 Family history of ischemic heart disease and other diseases of the circulatory system; Z83.3 Family history of diabetes mellitus; Z71.6 Tobacco abuse counseling; Z79.01 Long term (current) use of anticoagulants; Z91.19 Patient's noncompliance with other medical treatment and regimen; Y92.89 Other specified places as the place of occurrence of the external cause; Z68.23 Body mass index [BMI] 23.0-23.9, adult

== ENCOUNTER 2019-04-22 10:17 | Emergency (ER) | payer OTHER ==
[~2019-04-22] VITALS: Ht 160 cm; Wt 53.5 kg
[~2019-04-22 10:17] MED LIST changes: +CEFDINIR300 MG PO
[2019-04-22] MEDS ORDERED: VITAMIN D1000 UNI1 PO (10:35)
[2019-04-22] MEDS ORDERED: MIRALAX17 GM PO (10:35)
[2019-04-22] MEDS ORDERED: ZYRTEC10 M5 PO (10:36)
[2019-04-22] MEDS ORDERED: NORCO 5-325 TA1 EAC1 PO (12:31)
[2019-04-22 12:45] VITALS: BP 175/77
== END 2019-04-22 13:01 | disposition home or self-care (01) ==
LOC: M.ERS 10:17
DX: S82.832A Other fracture of upper and lower end of left fibula, initial encounter for closed fracture (principal); S82.392A Other fracture of lower end of left tibia, initial encounter for closed fracture; E11.22 Type 2 diabetes mellitus with diabetic chronic kidney disease; N18.9 Chronic kidney disease, unspecified; J44.9 Chronic obstructive pulmonary disease, unspecified; Z79.4 Long term (current) use of insulin; Z99.2 Dependence on renal dialysis; Z88.0 Allergy status to penicillin; Z88.1 Allergy status to other antibiotic agents; F17.210 Nicotine dependence, cigarettes, uncomplicated; X50.1XXA Overexertion from prolonged static or awkward postures, initial encounter; Y93.89 Activity, other specified; Y92.89 Other specified places as the place of occurrence of the external cause; Y99.8 Other external cause status

== ENCOUNTER 2019-04-23 15:39 | Emergency (ER) | payer OTHER ==
[~2019-04-23] VITALS: Ht 160 cm; Wt 54.4 kg
[~2019-04-23 15:39] MED LIST changes: +NORCO 5-325 TA1 EAC1 PO; +ZYRTEC10 M5 PO
[2019-04-23 17:20] VITALS: BP 170/78
== END 2019-04-23 17:20 | disposition home or self-care (01) ==
LOC: M.ERS 15:39
DX: S82.492A Other fracture of shaft of left fibula, initial encounter for closed fracture (principal); J44.9 Chronic obstructive pulmonary disease, unspecified; E11.22 Type 2 diabetes mellitus with diabetic chronic kidney disease; N18.9 Chronic kidney disease, unspecified; F17.210 Nicotine dependence, cigarettes, uncomplicated; Z99.2 Dependence on renal dialysis; Z88.1 Allergy status to other antibiotic agents; Z88.0 Allergy status to penicillin; W18.39XA Other fall on same level, initial encounter; Y93.89 Activity, other specified; Y92.89 Other specified places as the place of occurrence of the external cause; Y99.8 Other external cause status

== ENCOUNTER 2019-04-30 14:29 | Inpatient (IN) | payer OTHER ==
[~2019-04-30] VITALS: Ht 160 cm; Wt 65.7 kg
[2019-04-30 14:44] VITALS: BP 150/58
[2019-04-30 15:08] LABS: ABSOLUTE LYMPHOCYTES 1.6 thou/uL (0.8-5.3); ABSOLUTE MONOCYTES 0.6 thou/uL (0.0-1.2); BASOPHILS 0.5 %; EOSINOPHILS 0.5 %; HEMATOCRIT 32.2 % (37.0-47.0); HEMOGLOBIN 10.9 gm/dL (12.0-15.0); LYMPHOCYTES 17.1 %; MCH 31.8 pg (26.0-34.0); MCHC 33.8 g/dL (28.0-37.0); MCV 94.4 fL (80.0-100.0); MONOCYTES 6.2 %; MPV 8.7 fl. (7.2-11.1); NUCLEATED RBCS 0 /100WBC; PLATELET COUNT* 432 thou/uL (150-400); POLYS 75.7 %; RBC 3.41 mil/uL (4.20-5.00); RDW-CV 14.6 % (10.5-14.5); WBC 9.3 thou/uL (4.0-11.0)
[2019-04-30 15:22] LABS: APTT 28.2 Seconds (25.0-31.3); PROTIME 10.7 Seconds (9.20-11.50)
[2019-04-30] MEDS ORDERED: PLAVIX 75 MG TA75 M1 PO (15:26)
[2019-04-30] MEDS ORDERED: ZETIA10 MG PO (15:27)
[2019-04-30 15:29] LABS: PCO2 47.2 mmHg (35.0-45.0); PO2 67.9 mmHg (75.0-100.0); pH 7.435 (7.340-7.450)
[2019-04-30] MEDS ORDERED: NOVOLOG100 UNIT/1 SUBQ (15:32)
[2019-04-30 15:42] LABS: CALCIUM 8.9 mg/dL (8.5-10.1); CREATININE 2.6 mg/dL (0.6-1.3)
[2019-04-30 15:46] LABS: POTASSIUM 2.5 mmol/L (3.5-5.1)
[2019-04-30 15:57] LABS: ALBUMIN 2.5 g/dL (3.4-5.0); TOTAL BILIRUBIN 0.2 mg/dL (<0.1-1.0); TROPONIN-I LEVEL 0.14 ng/mL (<0.06)
[2019-04-30 17:50] VITALS: BP 157/54
[2019-04-30 18:30] VITALS: BP 147/68
[2019-04-30 20:00] VITALS: BP 134/58
[2019-05-01 00:19] VITALS: BP 144/66
[2019-05-01 04:00] VITALS: BP 106/85
[2019-05-01 04:27] LABS: HEMATOCRIT 32.9 % (37.0-47.0); HEMOGLOBIN 10.6 gm/dL (12.0-15.0); MCH 30.7 pg (26.0-34.0); MCHC 32.2 g/dL (28.0-37.0); MCV 95.6 fL (80.0-100.0); MPV 9.3 fl. (7.2-11.1); RBC 3.44 mil/uL (4.20-5.00); RDW-CV 15.1 % (10.5-14.5); WBC 5.6 thou/uL (4.0-11.0)
[2019-05-01 04:40] LABS: CALCIUM 8.7 mg/dL (8.5-10.1); CREATININE 2.5 mg/dL (0.6-1.3); MAGNESIUM 1.5 mg/dL (1.8-2.4); POTASSIUM 3.4 mmol/L (3.5-5.1)
--- NOTE | 2019-05-01 05:55 | NUR ---
ASSUMED PATIENT CARE AT 1900. PATIENT ALERT AND ORIENTED TIMES FOUR. TITRATED O2 DOWN TO 4L. SATURATION LEVEL REMAINED AT 98-99% THROUGH THE NIGHT ON THAT LEVEL OF O2. NO COMPLAINTS OF PAIN OR DISCOMFORT NOTED. SUPERVISOR ROLLING ROOM HERE AT THE BEGINNING OF SHIFT TO DRAIN DIALASATE FROM PREVIOUS NIGHT AND ALSO TO SET UP PERITONEAL DIALYSIS FOR THE NIGHT OF 04/30/19. HOURLY ROUNDING AND OXYGEN EQUIPMENT PREPARER COMPLETED DOCUMENTED.
[2019-05-01 07:34] VITALS: BP 147/61
[2019-05-01 10:45] VITALS: BP 183/66
--- NOTE | 2019-05-01 14:40 | NUR ---
Pt is A&O. Resides at home with her . completes cooking, cleaning and driving. Pt states that she is able to complete her ADLs sometimes, but is available to assists as needed. Pt has a home neb, no home o2. Pt has a walker and wc at home that she can use for mobility. Pt stated that she started peritoneal dialysis at home this week. Hx of [facility]. Hx of [facility]. Goal is home at ri. No needs anticipated. Following.
--- NOTE | 2019-05-01 16:25 | EKG ---
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1940 Requested By: Donaldo Mancera Order Number: [id number] MD: Jesus Erwin Measurements Intervals [place] Rate: 89 P: NM: QRS: 7 QRSD: 130 T: 140 QT: 377 QTc: 459 Interpretive Statements Atrial fibrillation Premature ventricular complexes Nonspecific intraventricular conduction delay Anterior infarct, old Nonspecific repol abnormality, diffuse leads Compared to ECG 03/21/2019 16:29:18 Ventricular premature complex(es) now present Intraventricular conduction delay now present Myocardial infarct finding now present Early repolarization now present Ectopic atrial rhythm no longer present Left bundle-branch block no longer present Electronically Signed On 05-01-2019 16:25:36 CDT by Jesus Erwin [email or web address] <ELECTRONICALLY SIGNED> By: Jesus Erwin MD, [facility] 05/01/19 1625 1458 1458 eJsus Erwin MD, [facility] /EPI
[2019-05-01 17:15] VITALS: BP 181/54
[2019-05-01 20:22] VITALS: BP 151/61
[2019-05-02 00:17] VITALS: BP 157/55
[2019-05-02 04:00] VITALS: BP 155/64
[2019-05-02 05:14] LABS: ALBUMIN 2.2 g/dL (3.4-5.0); CALCIUM 8.8 mg/dL (8.5-10.1); CREATININE 2.5 mg/dL (0.6-1.3); MAGNESIUM 1.4 mg/dL (1.8-2.4); PHOSPHORUS* 3.4 mg/dL (2.5-4.9); POTASSIUM 3.2 mmol/L (3.5-5.1)
--- NOTE | 2019-05-02 05:53 | NUR ---
PT IS ABLE TO COMMUNICATE HER NEEDS TO STAFF WITH ONLY MINOR DIFFICULTY; SHE IS MMRG-US-WAOGWSY. SHE HAS DENIED THE NEED FOR PAIN MEDICAITON UP TO THIS TIME. PERITONEAL DIALYSIS OVER NIGHT; TOLERATED WELL. OXIMETRY STUDY OVERNIGHT; TOLERATED WELL. 48HR CHEST XR LATER TODAY.
[2019-05-02 08:00] VITALS: BP 175/59
[2019-05-02] MEDS ORDERED: AZITHROMYCIN 2250 MG PO (09:03)
[2019-05-02] MEDS ORDERED: IPRAT-ALBUT 0.5-3 ML INH (09:03)
[2019-05-02] MEDS ORDERED: MUCINEX600 MG PO (09:03)
[2019-05-02] MEDS ORDERED: PREDNISONE 20 M20 MG PO (09:03)
[2019-05-02] MEDS ORDERED: CEFDINIR300 MG PO (09:03)
[2019-05-02] MEDS ORDERED: PULMICORT0.5 MG/22 INH (09:03)
--- NOTE | 2019-05-02 09:59 | CON ---
[address] [address] CONSULTATION Name: OWEN MARCANO Room: [address] IN M.R.#: [id number] Admission: 04/30/19 Attend Phys: Sebastian Clinton MD Discharge: Date of : 40 Report #: [id number] THIS REPORT FOR: //name// CC: Tima Clinton NEPHROLOGY CONSULT CONSULTING PHYSICIAN: Dr. Clinton. REASON FOR CONSULTATION: End-stage kidney disease. HISTORY OF PRESENT ILLNESS: A 78-year-old female with a history of end-stage kidney disease who is on hemodialysis, recently being trained on peritoneal dialysis, was to start using the cycler at home, but comes in with shortness of breath, wheezing, and productive cough without any fevers; no abdominal pain, no cloudy fluid, but she has been having some trouble with nausea, constipation and labile blood sugars. She is feeling better now and did well with her peritoneal dialysis overnight. She does not have any significant new complaints this a.m. REVIEW OF SYSTEMS: Constitutional, psych, heme, eyes, ENT, respiratory, cardiac, GI, , endocrine all negative except as documented above. PAST MEDICAL HISTORY: End-stage kidney disease, on peritoneal dialysis; history of type 2 diabetes; hypertension; history of COPD; Valdez's palsy. SOCIAL HISTORY: Positive for 1 pack per day smoking. FAMILY HISTORY: Not pertinent in this 78-year-old female. She is . MEDICATIONS: Reviewed. PHYSICAL EXAMINATION: VITAL SIGNS: Blood pressure is 147/61, pulse 97, respirations 16, temperature 36.6. GENERAL: No acute distress. EYES: Open. Ears externally normal. NECK: Supple. CARDIOVASCULAR: Regular rate. LUNGS: Diminished breath sounds. ABDOMEN: Soft, nontender. No rebound tenderness or guarding. MUSCULOSKELETAL: Nontender. PSYCHIATRIC: Awake, alert. LABORATORY DATA: White cell count 5.6, hemoglobin 10.6, platelets are 83. Sodium 134, potassium 3.4, chloride 95, bicarbonate 32, BUN 60, creatinine 2.5, glucose 479, calcium 8.7, magnesium 1.5. [place] [address] CONSULTATION Name: BISHOPOWEN ANN Room: [address] IN [facility]#: [id number] Admission: 04/30/19 Attend Phys: Sebastian Clinton MD Discharge: Date of : 40 Report #: [id number] ASSESSMENT: 1. End-stage kidney disease, on peritoneal dialysis. 2. Anemia with hemoglobin of 10.6 on 05/01/2018. 3. Hypoalbuminemia with an albumin of 2.5. 4. Diabetes with labile blood sugars. 5. Chronic obstructive pulmonary disease. 6. Pneumonia. 7. Hypertension. PLAN: 1. The patient took off about 600 mL of fluid with peritoneal dialysis overnight. There is no evidence of pulmonary edema on her chest x-ray and she does not appear significantly fluid overloaded. She has been having some nausea, vomiting and has elevated blood sugars as well as constipation. These factors can contribute to decreased ultrafiltration with peritoneal dialysis. We plan to go ahead and resume her peritoneal dialysis. She was to start the cycler at home with 5 cycles of 2 liters each. We will go ahead and resume that and use 1.5 and 2.5% dextrose bag. 2. Controlling blood sugars will be very important as is on steroids. We will defer to Internal Medicine. 3. She has been having some constipation. Did have a bowel movement yesterday. We will order some lactulose for her. 4. Hypokalemia. We will replace her potassium, which is actually much improved since admission and at 3.4 today. 5. Hypomagnesemia. We will replace. 6. Tunneled dialysis catheter for hemodialysis remains in place. We will not discontinue yet at this time. 7. Discontinue aluminum hydroxide. 8. We will ask pharmacy consult to assist with renal dosing of oral antibiotic. I will follow for dialysis needs. Thank you for requesting my opinion in the care and management of this patient. <ELECTRONICALLY SIGNED> By: Makenzie Shearer MD 05/02/19 0959 1039 [id number] Shearer MD /nt
[2019-05-02 15:21] VITALS: BP 175/59
--- NOTE | 2019-05-02 17:06 | NUR ---
BYRON RECEIVED TO DISCHARGE [facility] TO SELF CARE. VT REC, DAHIANA EDCAUOUTN, STROKE EDUACTION, AND FOLLOW UP APPOINTMENTS COVERED AND STATED UNDERSTOOD BY ANETA. DC TIME OF 14:15.
== END 2019-05-02 16:07 | disposition home or self-care (01) | DRG 193 ==
LOC: M.ERS 14:29 → M.TBA-ER 15:44 → M.2W 15:44
PROVIDERS: Family Medicine; ADMIT Internal Medicine
DX: J18.9 Pneumonia, unspecified organism (principal); N18.6 End stage renal disease; J96.21 Acute and chronic respiratory failure with hypoxia; J44.1 Chronic obstructive pulmonary disease with (acute) exacerbation; I12.0 Hypertensive chronic kidney disease with stage 5 chronic kidney disease or end stage renal disease; J44.0 Chronic obstructive pulmonary disease with (acute) lower respiratory infection; E11.22 Type 2 diabetes mellitus with diabetic chronic kidney disease; E11.649 Type 2 diabetes mellitus with hypoglycemia without coma; E87.6 Hypokalemia; F17.210 Nicotine dependence, cigarettes, uncomplicated; D64.9 Anemia, unspecified; K59.00 Constipation, unspecified; E88.09 Other disorders of plasma-protein metabolism, not elsewhere classified; Z82.49 Family history of ischemic heart disease and other diseases of the circulatory system; Z83.3 Family history of diabetes mellitus; Z88.1 Allergy status to other antibiotic agents; Z88.0 Allergy status to penicillin; Z79.899 Other long term (current) drug therapy

== ENCOUNTER 2019-06-11 14:18 | Inpatient (IN) | payer OTHER ==
[~2019-06-11] VITALS: Ht 160 cm; Wt 63.8 kg
--- NOTE | ~2019-06-11 | PROC ---
[address] [address] PROCEDURE REPORT Name: OWEN MARCANO Room: [address] IN M.R.#: [id number] Admission: 06/11/19 Attend Phys: Sebastian Clinton MD Discharge: Date of : 40 Report #: [id number] THIS REPORT FOR: //name// For GI report, please see the Provation report in Perceptive 7 content. By: 0650Medical Records Staff EDUARDO /ANNE MARIE
--- NOTE | ~2019-06-11 | CON ---
[address] [address] CONSULTATION Name: OWEN MARCANO Room: [address] IN M.R.#: [id number] Admission: 06/11/19 Attend Phys: Sebastian Clinton MD Discharge: Date of : 40 Report #: [id number] THIS REPORT FOR: //name// CC: Tima Clinton DATE OF SERVICE: 06/12/2019 CONSULTING PHYSICIAN: Sebastian Clinton MD REASON FOR CONSULTATION: End-stage kidney disease. HISTORY OF PRESENT ILLNESS: A 78-year-old female with a history of end-stage kidney disease, on peritoneal dialysis, who was admitted with a syncopal episode while sitting. She has noticed some blood in her stools, had a hemoglobin of 7.3 on admission and received a blood transfusion. She has been seen by GI and upper endoscopy is planned for today. She is currently stable, has no complaints, has otherwise been doing well with her PD with no abdominal pain or cloudy fluid related to that. REVIEW OF SYSTEMS: Constitutional, psych, heme, eyes, ENT, respiratory, cardiac, GI, , endocrine, all negative except as documented above. PAST MEDICAL HISTORY: End-stage kidney disease, on peritoneal dialysis, diabetes type 2, hypertension, history of COPD, Valdez's palsy. SOCIAL HISTORY: Positive for 1 pack per day smoking. FAMILY HISTORY: Not pertinent in this 78-year-old female. She is . MEDICATIONS: Reviewed. PHYSICAL EXAMINATION: VITAL SIGNS: Blood pressure is 147/87, pulse 77, respirations 16, temperature 36.8. GENERAL: No acute distress. EYES: Open. EARS: Externally normal. NECK: Supple. CARDIOVASCULAR: Regular rate. LUNGS: No crackles. ABDOMEN: Soft, nontender. MUSCULOSKELETAL: Nontender. PSYCHIATRIC: Awake, alert. LABORATORY DATA: White cell count 10.6, hemoglobin 8.6, [place] [address] CONSULTATION Name: OWEN MARCANO SIMON Room: [address] IN [facility]#: [id number] Admission: 06/11/19 Attend Phys: Sebastian Clinton MD Discharge: Date of : 40 Report #: [id number] 136, potassium 3.4, chloride 96, bicarbonate 25, BUN 47, creatinine 5.1, glucose 263, calcium 7.7, magnesium 1.4. ASSESSMENT: 1. End-stage kidney disease, on peritoneal dialysis. 2. Anemia with an admission hemoglobin of 7.3, status post 1 unit of packed red blood cell on 06/11/2019, concerning for possible gastrointestinal bleed. 3. Hypertension, on lisinopril as an outpatient. 4. Insulin-dependent diabetes. 5. Chronic obstructive pulmonary disease. 6. Peripheral vascular disease. PLAN: 1. Upper endoscopy planned for today. 2. Continue peritoneal dialysis. If colonoscopy is scheduled, we will ask nursing to notify me so that prophylactic antibiotic can be ordered if necessary. 3. Hypokalemia, replaced. 4. Hypomagnesemia, replaced. 5. Once on oral diet, we will start renal cap daily. 6. Defer management of hemoglobin to primary. We will follow along with you. Thank you for requesting my opinion in the care and management of this patient. By: 1121 [id number] Terri Shearer MD /nt
[~2019-06-11 14:18] MED LIST changes: +AZITHROMYCIN 2250 MG PO; +IPRAT-ALBUT 0.5-3 ML INH; -LISINOPRIL10 MG PO; +LISINOPRIL20 MG PO; +MUCINEX600 MG PO; +PLAVIX 75 MG TA75 M1 PO; +PREDNISONE 20 M20 MG PO; +PULMICORT0.5 MG/22 INH
[2019-06-11 14:27] VITALS: BP 109/33
[2019-06-11 14:45] LABS: ABSOLUTE LYMPHOCYTES 1.6 thou/uL (0.8-5.3); ABSOLUTE MONOCYTES 0.8 thou/uL (0.0-1.2); ABSOLUTE NEUTROPHILS 9.5 thou/uL (1.6-8.1); BASOPHILS 0.3 %; EOSINOPHILS 0.3 %; HEMATOCRIT 22.4 % (37.0-47.0); HEMOGLOBIN 7.3 gm/dL (12.0-15.0); LYMPHOCYTES 13.2 %; MCH 31.3 pg (26.0-34.0); MCHC 32.3 g/dL (28.0-37.0); MCV 96.7 fL (80.0-100.0); MONOCYTES 6.3 %; MPV 7.5 fl. (7.2-11.1); NUCLEATED RBCS 0 /100WBC; PLATELET COUNT* 636 thou/uL (150-400); POLYS 79.9 %; RBC 2.32 mil/uL (4.20-5.00); RDW-CV 15.7 % (10.5-14.5); WBC 11.9 thou/uL (4.0-11.0)
[2019-06-11 14:55] LABS: CREATININE 4.9 mg/dL (0.6-1.3)
[2019-06-11 14:59] LABS: POTASSIUM 2.5 mmol/L (3.5-5.1)
[2019-06-11 15:05] LABS: ALBUMIN 1.8 g/dL (3.4-5.0); TOTAL BILIRUBIN 0.3 mg/dL (<0.1-1.0); TOTAL PROTEIN 5.9 g/dL (6.4-8.2); TROPONIN-I LEVEL 0.15 ng/mL (<0.06)
[2019-06-11 15:22] LABS: APTT 29.5 Seconds (25.0-31.3); INR 1.1; PROTIME 11.5 Seconds (9.20-11.50)
[2019-06-11 15:29] LABS: URINE BILIRUBIN NEGATIVE (Negative); URINE BLOOD NEGATIVE (Negative); URINE CLARITY CLEAR; URINE COLOR DARK YELLOW; URINE GLUCOSE-RANDOM NEGATIVE (Negative); URINE KETONES NEGATIVE (Negative); URINE LEUKOCYTES-REFLEX NEGATIVE (Negative); URINE NITRITE-REFLEX NEGATIVE (Negative); URINE PROTEIN NEGATIVE (Negative); URINE SPECIFIC GRAVITY 1.015 (1.005-1.030); URINE UROBILINOGEN 0.2 E.U./dl (0.2-1.0)
[2019-06-11 17:46] LABS: % SATURATION 17 % (20-39); IRON 26 ug/dL (50-175)
[2019-06-11 19:00] VITALS: BP 115/30
[2019-06-11 20:00] VITALS: BP 113/26
[2019-06-11 20:04] VITALS: BP 119/35; BP 131/28; BP 134/24
[2019-06-11 22:51] LABS: HEMATOCRIT 24.8 % (37.0-47.0); HEMOGLOBIN 7.8 gm/dL (12.0-15.0)
[2019-06-12] VITALS (7 sets, daily range): BP systolic 101–149; BP diastolic 26–87
[2019-06-12 04:34] LABS: HEMATOCRIT 26.7 % (37.0-47.0); HEMOGLOBIN 8.6 gm/dL (12.0-15.0); MCH 29.2 pg (26.0-34.0); MCHC 32.1 g/dL (28.0-37.0); MPV 7.8 fl. (7.2-11.1); RBC 2.93 mil/uL (4.20-5.00); RDW-CV 20.4 % (10.5-14.5); WBC 10.6 thou/uL (4.0-11.0)
[2019-06-12 04:52] LABS: MCV 91.1 fL (80.0-100.0)
[2019-06-12 05:16] LABS: CALCIUM 7.7 mg/dL (8.5-10.1); CREATININE 5.1 mg/dL (0.6-1.3); MAGNESIUM 1.4 mg/dL (1.8-2.4); POTASSIUM 3.4 mmol/L (3.5-5.1)
[2019-06-12 13:59] LABS: CALCIUM 7.7 mg/dL (8.5-10.1); CREATININE 5.3 mg/dL (0.6-1.3); POTASSIUM 3.5 mmol/L (3.5-5.1)
--- NOTE | 2019-06-12 15:48 | EKG ---
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1940 Requested By: Mel Martinez Order Number: [id number] MD: Eliseo Owens Measurements Intervals [place] Rate: 89 P: 0 MD: 171 QRS: -43 QRSD: 133 T: 157 QT: 321 QTc: 391 Interpretive Statements atrial fibrillation left axis Left bundle branch block Compared to ECG 04/30/2019 14:58:38 Ventricular premature complex(es) no longer present Electronically Signed On 06-12-2019 15:47:47 CDT by Eliseo Owens [email or web address] <ELECTRONICALLY SIGNED> By: Eliseo Owens MD, [facility] 06/12/19 1547 1431 1431 Eliseo Owens MD, [facility] /EPI
[2019-06-13] VITALS: BP 100/52
[2019-06-13 04:00] VITALS: BP 139/43
[2019-06-13 05:08] LABS: HEMATOCRIT 23.8 % (37.0-47.0); HEMOGLOBIN 7.5 gm/dL (12.0-15.0); MCH 29.3 pg (26.0-34.0); MCHC 31.5 g/dL (28.0-37.0); MCV 93.2 fL (80.0-100.0); MPV 7.8 fl. (7.2-11.1); RBC 2.55 mil/uL (4.20-5.00); RDW-CV 20.6 % (10.5-14.5); WBC 9.9 thou/uL (4.0-11.0)
[2019-06-13 05:22] LABS: ALBUMIN 1.6 g/dL (3.4-5.0); CALCIUM 7.6 mg/dL (8.5-10.1); CREATININE 4.7 mg/dL (0.6-1.3); MAGNESIUM 1.8 mg/dL (1.8-2.4); PHOSPHORUS* 3.3 mg/dL (2.5-4.9)
[2019-06-13 05:34] LABS: POTASSIUM 2.8 mmol/L (3.5-5.1)
[2019-06-13 08:00] VITALS: BP 127/50
--- NOTE | 2019-06-13 11:13 | EKG ---
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
[2019-06-13 12:07] LABS: PCO2 36.7 mmHg (35.0-45.0); PO2 68.7 mmHg (75.0-100.0); pH 7.449 (7.340-7.450)
[2019-06-13 12:25] VITALS: BP 108/40
--- NOTE | 2019-06-13 14:38 | CON ---
[address] [address] CONSULTATION Name: OWEN MARCANO Room: [address] IN M.R.#: [id number] Admission: 06/11/19 Attend Phys: Sebastian Clinton MD Discharge: Date of : 40 Report #: [id number] THIS REPORT FOR: //name// CC: Tima Stubbs DATE OF SERVICE: 06/12/2019 INDICATION: Elevated troponin. HISTORY OF PRESENT ILLNESS: The patient is a very pleasant 78-year-old white female, who is well known to myself. She has a history of diastolic heart failure that appears presently well compensated. The patient was admitted to the hospital with increasing dyspnea and found to be significantly anemic. She has a heme-positive stool. No other findings to suggest possible upper GI bleed. She received a single unit of packed red blood cells and her dyspnea and shortness of breath have resolved. She has had no chest discomfort through this episode. In this setting, her troponin was 0.15 and 0.12. EKG shows a wandering atrial pacemaker and left bundle-branch block. She is not having chest pain at this time. She has chronic renal failure and is on peritoneal dialysis at home. She is without other cardiac complaint at this time. PAST MEDICAL HISTORY: 1. Chronic diastolic heart failure. 2. Bilateral carotid artery disease. 3. Essential hypertension. 4. End-stage renal disease, on peritoneal dialysis. 5. Type 2 diabetes mellitus. 6. History of tobacco use. 7. COPD. ALLERGIES: ERYTHROMYCIN, PENICILLIN, AND TETRACYCLINE. CURRENT MEDICATIONS: Albuterol inhaler 2 puffs p.r.n., Pulmicort 0.5 mg inhaler b.i.d., Tums 500 mg t.i.d., Zyrtec 10 mg daily, vitamin D 1000 units daily, Plavix 75 mg daily, furosemide 80 mg daily, guaifenesin 600 mg b.i.d., Potwin 5/325 p.r.n., NovoLog 20 units subcutaneous b.i.d., Combivent inhaler t.i.d., lisinopril 10 mg daily, Singulair 10 mg at bedtime, MiraLax 17 grams as directed, Pravachol 40 mg at bedtime. FAMILY HISTORY: Positive for heart disease and diabetes. SOCIAL HISTORY: The patient smokes a pack of cigarettes daily[place] [address] CONSULTATION Name: OWEN MARCANO Room: [address]#: [id number] Admission: 06/11/19 Attend Phys: Sebastian Clinton MD Discharge: Date of : 40 Report #: [id number] drink alcohol. PHYSICAL EXAMINATION: VITAL SIGNS: Blood pressure 147/87, pulse 77 and slightly irregular. Telemetry reveals what appears to be a sinus rhythm with frequent PACs and PVCs. GENERAL: This is a thin, pleasant, white female, in no distress. HEENT: Extraocular muscles intact. Mucous membranes are moist. NECK: Shows no jugular venous distention. I do not appreciate bruit. CHEST: Reveals diminished breath sounds throughout. CARDIAC: Reveals a slightly irregular rhythm without gallop or murmur. ABDOMEN: Reveals normal bowel sounds. The abdomen is soft and nontender. EXTREMITIES: Shows no edema. SKIN: Dry. LABORATORY DATA: A 12-lead EKG shows atrial rhythm with left bundle-branch block. Troponins initially 0.015 and now 0.012. IMPRESSION AND RECOMMENDATIONS: 1. Elevated troponin, likely due to cardiac strain from profound anemia, compounded by chronic renal failure. I doubt this represents acute coronary syndrome. The patient is having no symptoms to suggest such. Would continue current management. 2. Gastrointestinal bleed, presumed upper. Okay to discontinue Plavix at this time. I believe the patient is stable from a cardiac standpoint to proceed with EGD and possible treatment. 3. Chronic diastolic heart failure, appears compensated at this time. The patient's BNP is elevated; however, this is insignificant in the setting of chronic renal failure. 4. End-stage renal disease, on peritoneal dialysis per Nephrology. 5. Blood loss anemia. The patient has been transfused and is feeling better. Her hemoglobin is improved to 8.6 presently. 6. Chronic tobacco use, cessation advised. 7. Chronic left bundle-branch block on EKG, is unchanged. 8. Hypertension, presently stable. 9. Bilateral carotid disease, presently stable. Okay to hold Plavix at this time as she possibly has acute upper gastrointestinal bleed. 10. Diabetes. Treatment per primary physician. <ELECTRONICALLY SIGNED> By: Jesus Erwin MD, FACC 06/13/19 1438 0918 [id number] Erwin MD, FACC /nt
[2019-06-13 15:50] VITALS: BP 130/34
[2019-06-13 20:00] VITALS: BP 114/37
[2019-06-14] VITALS: BP 118/67
[2019-06-14 04:00] VITALS: BP 121/40
[2019-06-14 04:50] LABS: HEMATOCRIT 24.2 % (37.0-47.0); MCH 30.2 pg (26.0-34.0); MCHC 32.9 g/dL (28.0-37.0); MCV 91.8 fL (80.0-100.0); MPV 7.3 fl. (7.2-11.1); RBC 2.63 mil/uL (4.20-5.00); RDW-CV 20.3 % (10.5-14.5); WBC 9.4 thou/uL (4.0-11.0)
[2019-06-14 05:04] LABS: ALBUMIN 1.5 g/dL (3.4-5.0); CALCIUM 7.7 mg/dL (8.5-10.1); MAGNESIUM 1.5 mg/dL (1.8-2.4); PHOSPHORUS* 3.2 mg/dL (2.5-4.9); POTASSIUM 3.5 mmol/L (3.5-5.1); TOTAL BILIRUBIN 0.4 mg/dL (<0.1-1.0); TOTAL PROTEIN 4.8 g/dL (6.4-8.2)
[2019-06-14 08:00] VITALS: BP 74/55
[2019-06-14 17:45] VITALS: BP 88/53
[2019-06-14 19:40] VITALS: BP 114/25
[2019-06-14 23:45] VITALS: BP 107/35
[2019-06-15 03:30] VITALS: BP 127/38
[2019-06-15 07:00] VITALS: BP 118/33
[2019-06-15 07:57] LABS: ABSOLUTE EOSINOPHILS 0.1 thou/uL (0.0-0.7); ABSOLUTE LYMPHOCYTES 1.6 thou/uL (0.8-5.3); ABSOLUTE MONOCYTES 0.6 thou/uL (0.0-1.2); ABSOLUTE NEUTROPHILS 5.2 thou/uL (1.6-8.1); BASOPHILS 0.6 %; EOSINOPHILS 1.2 %; HEMATOCRIT 22.7 % (37.0-47.0); HEMOGLOBIN 7.3 gm/dL (12.0-15.0); LYMPHOCYTES 21.3 %; MCH 30.3 pg (26.0-34.0); MCHC 32.3 g/dL (28.0-37.0); MCV 93.7 fL (80.0-100.0); MONOCYTES 7.6 %; MPV 7.7 fl. (7.2-11.1); NUCLEATED RBCS 0 /100WBC; PLATELET COUNT* 523 thou/uL (150-400); POLYS 69.3 %; RBC 2.42 mil/uL (4.20-5.00); RDW-CV 21.3 % (10.5-14.5); WBC 7.6 thou/uL (4.0-11.0)
[2019-06-15 08:12] LABS: CALCIUM 7.3 mg/dL (8.5-10.1); CREATININE 3.9 mg/dL (0.6-1.3)
[2019-06-15 09:25] LABS: ANISOCYTOSIS 1+; PLATELET ESTIMATE ADEQUATE
[2019-06-15 11:27] VITALS: BP 111/44
[2019-06-15 15:44] VITALS: BP 133/110
[2019-06-15 20:00] VITALS: BP 144/39
[2019-06-16] VITALS (7 sets, daily range): BP systolic 87–150; BP diastolic 32–59
[2019-06-16 04:52] LABS: HEMATOCRIT 28.8 % (37.0-47.0); MCH 29.3 pg (26.0-34.0); MCHC 31.2 g/dL (28.0-37.0); MCV 93.8 fL (80.0-100.0); MPV 7.6 fl. (7.2-11.1); RBC 3.07 mil/uL (4.20-5.00); RDW-CV 21.3 % (10.5-14.5); WBC 9.5 thou/uL (4.0-11.0)
[2019-06-16 05:09] LABS: CALCIUM 7.9 mg/dL (8.5-10.1); CREATININE 3.8 mg/dL (0.6-1.3); MAGNESIUM 1.5 mg/dL (1.8-2.4); POTASSIUM 3.8 mmol/L (3.5-5.1)
[2019-06-17] VITALS (7 sets, daily range): BP systolic 108–140; BP diastolic 36–84
[2019-06-17] MEDS ORDERED: ZETIA10 MG PO (11:38)
[2019-06-17] MEDS ORDERED: COLACE100 MG PO (11:39)
[2019-06-17] MEDS ORDERED: RENAL-VITE TAB0.8 MG PO (11:40)
[2019-06-17] MEDS ORDERED: ANTIVERT25 MG PO (11:42)
[2019-06-17] MEDS ORDERED: ROCALTROL0.25 MCG PO (12:14)
[2019-06-17] MEDS ORDERED: ENULOSE10 GM/15 M PO (12:17)
[2019-06-18] VITALS (7 sets, daily range): BP systolic 91–147; BP diastolic 33–61
--- NOTE | 2019-06-18 22:06 | PATH ---
[address] [address] PATHOLOGY RPT PROCEDURE Name: SANJUANA MARCANO Room: [address] IN M.R.#: [id number] Admission: 06/11/19 Date of : 40 Discharge: Report #: [id number] Path Case #: [id number] [facility] Accession Number: [id number] . 01 Material submitted: . esophagus - DISTAL ESOPHAGEAL BIOPSY OF ESOPHAGEAL ULCER. Modifiers: distal . 01 Clinical history: . None provided . 02 Diagnosis: "Distal esophageal biopsy of esophageal ulcer", biopsy: - Esophageal squamous mucosa and gastric cardiac type mucosa with reactive changes and acute and chronic inflammation, granulation tissue, necroinflammatory debris/ulceration consistent with ulcer bed; no intestinal metaplasia or dysplasia seen (see comment). (CLW:иван; 06/18/2019) QTP/06/18/2019 . 02 Comment: Properly controlled immunohistochemical and special stains are performed. . Block A1 AE1/AE3 - Highlights the residual epithelium. CMV* - Negative for viral inclusions. HSV I* - Negative for viral inclusions. HSV II* - Negative for viral inclusions. GMS - Negative for fungal organisms. . Clinical and endoscopic correlation is recommended. (CLW:иван; 06/18/2019) . *This test was developed and its performance characteristics determined by [facility]. It has not been cleared or approved by the U.S. Food and Drug Administration. The FDA has determined that such clearance or approval is not necessary. This test is used for clinical purposes. It should not be regarded as investigational or for research. This laboratory is certified under the Clinical Laboratory Improvement Amendments of 1988 (CLIA) as qualified to perform high complexity clinical laboratory testing. . 02 Electronically signed: . Jenniffer Coffey MD, Pathologist NPI- [id number] . 01 Gross description: . Received in formalin labeled "Sanjuana Marcano, distal esophageal biopsy of esophagus ulcer," are 2 segments of gaona soft tissue measuring 0.8 x 0.3 x 0.3 cm in aggregate dimensions and ranging from 0.3 to 0.5 [place] [address] PATHOLOGY RPT PROCEDURE Name: SANJUANA MARCANO Room: [address] IN M.R.#: [id number] Admission: 06/11/19 Date of : 40 Discharge: Report #: [id number] Path Case #: [id number] dimension. The specimen is submitted entirely in cassette A1. (TSD; 06/12/2019) TOB/TOB . 02 Pathologist provided ICD-10: K22.10, K20.9 . 02 CPT . 957903, B20607, E68439, 382479 Specimen Comment: A courtesy copy of this report has been sent to Specimen Comment: [phone], , . Specimen Comment: Report sent to , and Performed at: 01 [facility] [address] [id number] MD Chad Thomas MD Phone: [phone] Performed at: 02 [facility] [address] [id number] MD Gallo Recio MD Phone: [phone]
[2019-06-19 04:00] VITALS: BP 137/47
[2019-06-19 07:45] VITALS: BP 144/48
[2019-06-19 07:46] VITALS: BP 127/53
[2019-06-19 16:00] VITALS: BP 123/47
[2019-06-19 20:00] VITALS: BP 133/42
[2019-06-20] VITALS (8 sets, daily range): BP systolic 111–170; BP diastolic 29–59
[2019-06-20 05:07] LABS: HEMATOCRIT 25.1 % (37.0-47.0); HEMOGLOBIN 8.1 gm/dL (12.0-15.0); MCH 29.8 pg (26.0-34.0); MCHC 32.3 g/dL (28.0-37.0); MCV 92.3 fL (80.0-100.0); MPV 7.7 fl. (7.2-11.1); RBC 2.71 mil/uL (4.20-5.00); RDW-CV 19.5 % (10.5-14.5); WBC 10.3 thou/uL (4.0-11.0)
[2019-06-20 05:19] LABS: CALCIUM 7.8 mg/dL (8.5-10.1); CREATININE 2.8 mg/dL (0.6-1.3); MAGNESIUM 1.7 mg/dL (1.8-2.4); POTASSIUM 3.5 mmol/L (3.5-5.1)
[2019-06-21 00:30] VITALS: BP 166/43
[2019-06-21 04:00] VITALS: BP 164/46
[2019-06-21 09:20] VITALS: BP 147/55
[2019-06-21 17:14] VITALS: BP 138/56
[2019-06-21 20:20] VITALS: BP 142/55
[2019-06-22 04:19] LABS: ABSOLUTE BASOPHILS 0.1 thou/uL (0.0-0.2); ABSOLUTE EOSINOPHILS 0.1 thou/uL (0.0-0.7); ABSOLUTE MONOCYTES 0.9 thou/uL (0.0-1.2); ABSOLUTE NEUTROPHILS 4.3 thou/uL (1.6-8.1); BASOPHILS 1.2 %; HEMATOCRIT 25.2 % (37.0-47.0); HEMOGLOBIN 8.1 gm/dL (12.0-15.0); MCH 29.5 pg (26.0-34.0); MCHC 32.3 g/dL (28.0-37.0); MCV 91.2 fL (80.0-100.0); MONOCYTES 14.4 %; MPV 7.8 fl. (7.2-11.1); NUCLEATED RBCS 0 /100WBC; PLATELET COUNT* 509 thou/uL (150-400); POLYS 67.4 %; RBC 2.76 mil/uL (4.20-5.00); RDW-CV 18.4 % (10.5-14.5); WBC 6.3 thou/uL (4.0-11.0)
[2019-06-22 04:41] LABS: CALCIUM 7.7 mg/dL (8.5-10.1); CREATININE 2.4 mg/dL (0.6-1.3); PHOSPHORUS* 3.1 mg/dL (2.5-4.9); POTASSIUM 3.6 mmol/L (3.5-5.1)
[2019-06-22 07:45] VITALS: BP 143/48
[2019-06-22] MEDS ORDERED: ADVAIR HFA 230M12 GM INH (07:45)
[2019-06-22] MEDS ORDERED: MIDODRINE HCL 55 M1 PO (07:45)
[2019-06-22] MEDS ORDERED: MUCINEX600 MG PO (07:45)
[2019-06-22] MEDS ORDERED: NEXIUM40 MG PO (07:47)
--- NOTE | 2019-06-22 08:58 | CON ---
[address] [address] CONSULTATION Name: OWEN MARCANO Room: [address] IN M.R.#: [id number] Admission: 06/11/19 Attend Phys: Sebastian Clinton MD Discharge: Date of : 40 Report #: [id number] THIS REPORT FOR: //name// CC: Tima Patiño DO Sebastian Clinton DICTATED BY: Argelia Cannon [facility] DATE OF SERVICE: 06/12/2019 Please note at the time of this dictation, the patient was seen and physically examined by myself. REASON FOR CONSULTATION: Acute anemia, GI bleed and weakness. HISTORY OF PRESENT ILLNESS: This is a pleasant 78-year-old woman who saw Dr. Solo yesterday in the office and was found to have a positive Hemoccult stool. At that time, her hemoglobin back in middle of April was 8; however, back at the end of December of this year, she was 12.5. The patient was originally seen first in January for her nausea and vomiting and has had a weight loss of 75 pounds over the last year or so. She was scheduled to have an EGD in the end of February, 03/15, she canceled because her son unexpectedly then she proceeded in getting a peritoneal dialysis catheter and she just lost track of time. She has continued to progressively have weakness, which got worse over the last week and a half to two weeks. She has been having nausea and vomiting that has been considerably dark. Her is color blind, but states that it has been very dark in nature as well as her stools, which had been very dark in nature as well and they have been ongoing for some time. She does not take something for her constipation, she will not go. She has been taking some MiraLax and stool softeners to help facilitate a bowel movement. Her last bowel movement was 2 days ago. The patient has not ever had an upper scope done. Last colonoscopy, the patient states was many years ago, she thinks it was completely normal and does not recall where it was done before. She is not complaining of any abdominal pain at the present time. ALLERGIES: ERYTHROMYCIN, PENICILLIN, AND TETRACYCLINE. MEDICATIONS: From home include MiraLax, Singulair, vitamin D, Zyrtec, NovoLog, Tums, Pravachol, Zestril, Ventolin, Combivent, furosemide, insulin, Fontana, and Plavix. PAST MEDICAL HISTORY: End-stage renal disease, currently now on peritoneal dialysis. She is diabetic, chronic kidney disease, hypertension, COPD, history of Valdez[place] [address] CONSULTATION Name: OWEN MARCANO Room: [address] IN M.R.#: [id number] Admission: 06/11/19 Attend Phys: Sebastian Clinton MD Discharge: Date of : 40 Report #: [id number] PAST SURGICAL HISTORY: Her peritoneal dialysis catheter placed earlier in the summer and lens implant. FAMILY HISTORY: Negative for any GI or female cancers. SOCIAL HISTORY: She is a smoker. She has been cutting back on that. Denies any alcohol use or illegal drug use. REVIEW OF SYSTEMS: Twelve-point review of systems is essentially negative except what is mentioned in the HPI. PHYSICAL EXAMINATION: VITAL SIGNS: Temperature 36.7, pulse 82, respirations 18, blood pressure 147/36. HEART: Regular rate and rhythm. LUNGS: Diminished. ABDOMEN: Soft, positive bowel sounds in all 4 quadrants with no masses or tenderness noted. LABORATORY DATA: Hemoglobin on admission was 7.3. She got a unit of blood, she is up to 8.6, white count is 10.6, platelets 570. BUN is 47, creatinine 5.1 with a GFR of 8. Ferritin was 383. B12 was 1084. Iron 26, percentage sat 17, haptoglobin 372. Retic count 6.3, MCV is 91 and RDW was 20.4. Troponin slightly elevated. BNP was 16,000. CT of the abdomen and pelvis essentially negative showing the peritoneal dialysis catheter. IMPRESSION: 1. Acute anemia. 2. Melanotic stool. 3. Nausea and vomiting. 4. Hematemesis. 5. Anticoagulant therapy, Plavix on hold. 6. Peritoneal dialysis. 7. Chronic obstructive pulmonary disease. 8. Fever daily, unknown etiology. PLAN: 1. Awaiting Cardiology clearance spoke with Dr. Erwin and will be seeing the patient, likely elevated troponin related to acute anemia. 2. Once we have clearance, can place the patient on for an EGD later today with Dr. Burgess. She is currently n.p.o. 3. Further recommendations to be made after the procedure has been performed. [address] [address] CONSULTATION Name: OWEN MARCANO Room: [address] IN M.R.#: [id number] Admission: 06/11/19 Attend Phys: Sebastian Clinton MD Discharge: Date of : 40 Report #: [id number] Thank you for allowing us to participate in this patient's care. Please do not hesitate to call with any questions in regard to this consult. <ELECTRONICALLY SIGNED> By: Estefanía Burgess MD 06/22/19 0858 0911 1241Estefanía Burgess MD /nt
[2019-06-22 09:21] VITALS: BP 137/29
[2019-06-22 09:27] VITALS: BP 137/29
[2019-06-22] MEDS ORDERED: ANTIVERT25 MG PO (11:06)
== END 2019-06-22 11:45 | disposition home health service (06) | DRG 380 ==
LOC: M.ERS 14:18 → M.TBA-ER 15:55 → M.2W 15:55 → M.ORTHSURG 06-20 14:50
PROVIDERS: Anesthesiology; Internal Medicine; Internal Medicine Nephrology; Physician Assistant; ADMIT Internal Medicine
PROC: 30233N1 Transfusion of Nonautologous Red Blood Cells into Peripheral Vein, Percutaneous Approach (ICD-10-PCS; principal; 2019-06-11)
PROC: 0DB38ZX Excision of Lower Esophagus, Via Natural or Artificial Opening Endoscopic, Diagnostic (ICD-10-PCS; 2019-06-12)
PROC: 3E1M39Z Irrigation of Peritoneal Cavity using Dialysate, Percutaneous Approach (ICD-10-PCS; 2019-06-14)
PROC: 3E1M39Z Irrigation of Peritoneal Cavity using Dialysate, Percutaneous Approach (ICD-10-PCS; 2019-06-15)
DX: K22.11 Ulcer of esophagus with bleeding (principal); N18.6 End stage renal disease; J15.6 Pneumonia due to other Gram-negative bacteria; D62 Acute posthemorrhagic anemia; I13.2 Hypertensive heart and chronic kidney disease with heart failure and with stage 5 chronic kidney disease, or end stage renal disease; I50.32 Chronic diastolic (congestive) heart failure; D68.9 Coagulation defect, unspecified; K44.9 Diaphragmatic hernia without obstruction or gangrene; E11.51 Type 2 diabetes mellitus with diabetic peripheral angiopathy without gangrene; E87.6 Hypokalemia; K59.00 Constipation, unspecified; E83.42 Hypomagnesemia; G51.0 Bell's palsy; F17.210 Nicotine dependence, cigarettes, uncomplicated; I95.9 Hypotension, unspecified; K21.0 Gastro-esophageal reflux disease with esophagitis; E11.22 Type 2 diabetes mellitus with diabetic chronic kidney disease; I44.7 Left bundle-branch block, unspecified; J44.9 Chronic obstructive pulmonary disease, unspecified; Z99.2 Dependence on renal dialysis; Z88.1 Allergy status to other antibiotic agents; Z88.0 Allergy status to penicillin; Z82.49 Family history of ischemic heart disease and other diseases of the circulatory system; Z79.84 Long term (current) use of oral hypoglycemic drugs; Z79.01 Long term (current) use of anticoagulants; Z83.3 Family history of diabetes mellitus

== ENCOUNTER 2019-06-24 11:50 | Inpatient (IN) | payer OTHER ==
[~2019-06-24] VITALS: Ht 160 cm; Wt 61.7 kg
--- NOTE | ~2019-06-24 | CON ---
[address] [address] CONSULTATION Name: OWEN MARCANO Room: [address] IN M.R.#: [id number] Admission: 06/24/19 Attend Phys: Sebastian Clinton MD Discharge: Date of : 40 Report #: [id number] THIS REPORT FOR: //name// CC: Tima Patiño DO Sebastian Clinton DICTATED BY: Argelia Cannon [facility] DATE OF SERVICE: 06/25/2019 Please note at the time of this dictation, the patient was seen and physically examined by myself. REASON FOR CONSULTATION: Hematemesis. HISTORY OF PRESENT ILLNESS: This is a 79-year-old female who just recently went home from the hospital, coming back with nausea, vomiting and having a little bit of chest discomfort that started on the morning of admission, the patient was just discharged on 06/22 following a GI bleed and pneumonia. The patient states that she started vomiting some dark colored emesis. She has been complaining of some right-sided chest discomfort as well. In further discussion with the patient apparently, she did not get some of her medications filled because insurance would not pay for them. She was not taking any PPI. It is unclear if she got her Carafate filled and she was not taking the Reglan for sure on discharge. The patient did undergo an EGD with Dr. Burgess on 06/12 that showed grade D esophagitis, medium hiatal hernia and it was recommended that the patient have a repeat EGD in 2 months. In looking back at her biopsy reports, I am not seeing that biopsy has come back from her EGD and will need to do some further investigating. ALLERGIES: PENICILLIN, TETRACYCLINE, ERYTHROMYCIN. MEDICATIONS: From home; Nexium, Advair, Mucinex and midodrine. PAST MEDICAL HISTORY: End-stage renal disease. She is on peritoneal dialysis, type 2 diabetes, hypertension, COPD, history of Valdez's palsy, history of peripheral artery disease, history of a fractured tib-fib. PAST SURGICAL HISTORY: Lens implants with peritoneal dialysis catheter placed. FAMILY HISTORY: Negative for any GI or female cancers. SOCIAL HISTORY: She is a smoker and has been cutting back. Denies any alcohol [place] [address] CONSULTATION Name: OWEN MARCANO Room: [address] IN [facility].#: [id number] Admission: 06/24/19 Attend Phys: Sebastian Clinton MD Discharge: Date of : 40 Report #: [id number] REVIEW OF SYSTEMS: Twelve-point review of systems is essentially negative except what is mentioned in the HPI. PHYSICAL EXAMINATION: VITAL SIGNS: Temperature 37.8, pulse 85, respirations 18, blood pressure 141/42. HEART: Regular rate and rhythm. LUNGS: Diminished on the right with some inspiratory wheezes and crackles noted. ABDOMEN: Soft, positive bowel sounds in all 4 quadrants with no masses or tenderness noted. LABORATORY DATA: Hemoglobin 7.4, white count 5.4, platelets 440. BUN is 33, creatinine 2.6, GFR is 38. PT is 11.8, INR is 1.2. IMPRESSION: 1. Hematemesis. 2. Early satiety. 3. Nausea and vomiting. 4. Right pleural effusion, improving. 5. History of chronic obstructive pulmonary disease. 6. Chronic kidney disease, peritoneal dialysis. PLAN: 1. We will make sure she has restarted back on her Protonix 40 mg b.i.d., Carafate suspension 1 g a.c. and at bedtime and Reglan 5 mg a.c. and at bedtime. 2. No endoscopy studies at this time. We will get the patient back on her medicines since that was likely the cause that she went home without any of her medications. She will need a repeat endoscopic EGD in 2 months. 3. We will await and see how she does with back on her medications. Thank you for allowing us to participate in this patient's care. Please do not hesitate to call with any questions in regards to this consult. By: 1126 0123Estefanía Burgess MD /belkis
--- NOTE | ~2019-06-24 | CON ---
[address] [address] CONSULTATION Name: OWEN MARCANO Room: [address] IN .R.#: [id number] Admission: 06/24/19 Attend Phys: Sebastian Clinton MD Discharge: Date of : 40 Report #: [id number] THIS REPORT FOR: //name// CC: Tima Clinton DATE OF SERVICE: 06/25/2019 REQUESTING PHYSICIAN: Sebastian Clinton MD REASON FOR CONSULTATION: Assist in providing dialysis. HISTORY OF PRESENT ILLNESS: The patient is a 79-year-old female with medical history significant for end-stage renal disease, peripheral artery disease, COPD and known grade D esophagitis, presented with complaints of some nausea and coffee-ground emesis. She is admitted for evaluation of GI bleed. PAST MEDICAL HISTORY: 1. Diabetes mellitus type 2. 2. Chronic obstructive pulmonary disease. 3. Peripheral artery disease. 4. End-stage renal disease. 5. History of gastrointestinal bleed. 6. History of esophagitis. 7. Deconditioning. FAMILY HISTORY: Noncontributory. SOCIAL HISTORY: No current tobacco or alcohol abuse. MEDICATIONS: Prior to admission reviewed. REVIEW OF SYSTEMS: Positive for low energy level, low appetite and nausea and vomiting with coffee-ground material. Rest of the systems reviewed and negative. PHYSICAL EXAMINATION: GENERAL: She is awake, alert, oriented, in no acute distress. VITAL SIGNS: Blood pressure 127/40, heart rate 84, afebrile. HEENT: Pupils are round. NECK: Supple. LUNGS: Decreased air movements at the bases. CARDIOVASCULAR: Regular rate. ABDOMEN: Soft, [place] [address] CONSULTATION Name: OWEN MARCANO Room: [address] IN .R.#: [id number] Admission: 06/24/19 Attend Phys: Sebastian Clinton MD Discharge: Date of : 40 Report #: [id number] EXTREMITIES: Lower extremities, +1 edema. LABORATORY DATA: Report revealed serum sodium of 138, potassium 3.4, chloride 100, carbon dioxide 31, BUN 33, creatinine 2.6, glucose 322. Hemoglobin 7.4, white count 5.4. ASSESSMENT: 1. End-stage renal disease, on peritoneal dialysis. 2. Gastrointestinal bleed due to esophagitis. 3. Diabetes mellitus type 2. 4. Chronic obstructive pulmonary disease. 5. Mild fluid overload. PLAN: 1. I will continue with same PDA. I do not think pull more fluid off than we are doing now. Her blood pressure is on the lower side and she is not in respiratory distress. 2. GI workup per Dr. Clinton. By: 1144 1447Alexandr Megan Peres MD /nt
[~2019-06-24 11:50] MED LIST changes: +ADVAIR HFA 230M12 GM INH; +COLACE100 MG PO; +ENULOSE10 GM/15 M PO; +MIDODRINE HCL 55 M1 PO; +NEXIUM40 MG PO; +ROCALTROL0.25 MCG PO
[2019-06-24 12:00] VITALS: BP 122/53
[2019-06-24 12:34] LABS: ABSOLUTE LYMPHOCYTES 1.3 thou/uL (0.8-5.3); ABSOLUTE MONOCYTES 0.8 thou/uL (0.0-1.2); ABSOLUTE NEUTROPHILS 6.2 thou/uL (1.6-8.1); BASOPHILS 0.5 %; EOSINOPHILS 0.5 %; HEMATOCRIT 25.6 % (37.0-47.0); HEMOGLOBIN 8.2 gm/dL (12.0-15.0); LYMPHOCYTES 15.7 %; MCH 29.3 pg (26.0-34.0); MCHC 32.2 g/dL (28.0-37.0); MCV 91.1 fL (80.0-100.0); MONOCYTES 9.2 %; MPV 7.9 fl. (7.2-11.1); NUCLEATED RBCS 0 /100WBC; PLATELET COUNT* 515 thou/uL (150-400); POLYS 74.1 %; RBC 2.81 mil/uL (4.20-5.00); RDW-CV 17.8 % (10.5-14.5); WBC 8.3 thou/uL (4.0-11.0)
[2019-06-24 12:43] LABS: INR 1.2; PROTIME 11.8 Seconds (9.20-11.50)
[2019-06-24 12:45] LABS: CALCIUM 8.1 mg/dL (8.5-10.1); CREATININE 2.6 mg/dL (0.6-1.3); POTASSIUM 3.9 mmol/L (3.5-5.1)
[2019-06-24 12:56] LABS: ALBUMIN 1.6 g/dL (3.4-5.0); TOTAL BILIRUBIN 0.2 mg/dL (<0.1-1.0); TOTAL PROTEIN 5.1 g/dL (6.4-8.2); TROPONIN-I LEVEL 0.06 ng/mL (<0.06)
--- NOTE | 2019-06-24 13:26 | NUR ---
DR. VASQUEZ IN ROOM WITH PT.
--- NOTE | 2019-06-24 15:07 | EKG ---
[place] [address] ELECTROCARDIOGRAM REPORT Name: OWEN MARCANO Room: [place] [address] ADM IN .R.#: [id number] Admission: 06/24/19 Attend Phys: Sebastian Clinton MD Discharge: Date of : 40 Report #: [id number] THIS REPORT FOR: //name// [facility] ED Test Date: 2019-06-24 Test Time: 12:10:48 Pat Name: OWEN MARCANO Department: Room: [facility] Gender: F Pipe Organ Technician: [facility] : 1940 Requested By: Tai Wray Order Number: [id number] MD: Jesus Erwin Measurements Intervals [place] Rate: 94 P: IN: QRS: -87 QRSD: 121 T: 74 QT: 389 QTc: 487 Interpretive Statements Sinus rhythm with premature atrial contractions Left bundle-branch block Compared to ECG 06/12/2019 13:11:38 No significant changes noted Electronically Signed On 06-24-2019 15:07:07 CDT by Jesus Erwin [email or web address] <ELECTRONICALLY SIGNED> By: Jesus Erwin MD, [facility] 06/24/19 1507 1210 1210 Jesus Erwin MD, [facility] /EPI
[2019-06-24 16:07] VITALS: BP 125/40
[2019-06-24 16:25] VITALS: BP 135/53
--- NOTE | 2019-06-24 18:06 | NUR ---
RECEIVED PT FROM ER AT 1625. GET SITUATED TO ROOM. PT AOX4, UP WITH ASSIST, O2 SAT 90'S 1L NC. TELE IN PLACED TRACING AFIB, TACH ON MONITOR. PT DENIES PAIN. PT FOR ACCU CHECK, BLOOD SUGAR IS LOW, DEXTROSE 50ML GIVEN. PT NPO. PT FOR PERITONEAL DIALYSIS. BILATERAL EDEMA ON LOWER EXTREMITY NOTED. ADMISSION ASSESSMENT CHARTED. HOURLY ROUNDING, CALL LIGHT WITHIN REACH. WILL CONTINUE TO MONITOR.
[2019-06-24 19:30] VITALS: BP 102/57
[2019-06-24 23:45] VITALS: BP 128/57
--- NOTE | 2019-06-25 03:28 | NUR ---
ASSUMED CARE OF PT AT 1900. PT IS ALERT AND ORIENTED. VSS. PERRLA. NO COMPLAINTS OF PAIN. PT IS CURRENTLY ON PERITONEAL DIALYSIS. PT IS IN A FIB ON THE TELEMETRY. PT IS RESTING COMFORTABLY IN BED. RESPIRATIONS ARE EVEN AND NONLABORED. WILL CONTINUE TO MONITOR PT.
[2019-06-25 04:00] VITALS: BP 141/42
[2019-06-25 05:16] LABS: HEMATOCRIT 23.3 % (37.0-47.0); HEMOGLOBIN 7.4 gm/dL (12.0-15.0); MCH 29.3 pg (26.0-34.0); MCHC 31.9 g/dL (28.0-37.0); MPV 7.9 fl. (7.2-11.1); RBC 2.53 mil/uL (4.20-5.00); WBC 5.4 thou/uL (4.0-11.0)
[2019-06-25 05:36] LABS: CALCIUM 7.5 mg/dL (8.5-10.1); CREATININE 2.6 mg/dL (0.6-1.3); MAGNESIUM 1.7 mg/dL (1.8-2.4); POTASSIUM 3.4 mmol/L (3.5-5.1)
[2019-06-25 11:31] VITALS: BP 127/40
--- NOTE | 2019-06-25 15:21 | NUR ---
MET WITH PT TO DISCUSS HOME SITUATION. PT JUST DC'D SUN WITH [facility]. READMITTED WITH N/V, PT STATING SHE CANNOT TOLERATE THE CARAFATE, NURSE AWARE. PT LIVES WITH SPOUSE, DTR IS SUPPORTIVE AND ASSISTS. SPOUSE DOES PT'S PERITONEAL DIALYSIS AT HOME, DTR IS LEARNING HOW ALSO. PT HAS WALKER AND W/C. PT HAS HH WITH [facility] SHE PLANS TO RETURN HOME AT [place]. WILL FOLLOW
[2019-06-25 15:25] VITALS: BP 122/44
--- NOTE | 2019-06-25 19:00 | NUR ---
ASSUMED PT CARE AT 0700, PT A&O X4, VSS, DIRECTOR OF OFFICIATING TRACING AFIB BUT WILL CONVERT INTO SINUS RHYTHM WITH BBB, 1ST DEGREE BLOCK, AND PVC'S AT TIMES, PT ON BEDREST FOR THIS SHIFT, FULL ASSESSMENT CHARTED. PT RECVD PERITONEAL DIALYSIS WITH 1804 MLS PULLED OFF PT, TOLERATED WELL. PT CONT TO REFUSE CARAFATE AND REGLAN AT TIMES DISPITE CONTINUOUS EDUCATION ON IMPORTANCE OF MEDS. NO N/V THIS SHIFT, LOOSE BM WITH NO S/S BLOOD. HOURLY ROUNDING AND Q2 HOUR TURNS COMPLETED.
[2019-06-25 20:15] VITALS: BP 149/50
[2019-06-26] VITALS: BP 143/41
[2019-06-26 04:00] VITALS: BP 160/47
[2019-06-26 04:39] LABS: MCH 28.1 pg (26.0-34.0); MCHC 30.8 g/dL (28.0-37.0); MCV 91.4 fL (80.0-100.0); RBC 2.41 mil/uL (4.20-5.00); RDW-CV 17.9 % (10.5-14.5); WBC 4.6 thou/uL (4.0-11.0)
[2019-06-26 04:47] LABS: CALCIUM 7.5 mg/dL (8.5-10.1); CREATININE 2.3 mg/dL (0.6-1.3); MAGNESIUM 1.5 mg/dL (1.8-2.4)
[2019-06-26 04:49] LABS: POTASSIUM 2.9 mmol/L (3.5-5.1)
[2019-06-26 04:50] LABS: HEMOGLOBIN 6.8 gm/dL (12.0-15.0)
--- NOTE | 2019-06-26 05:16 | NUR ---
ASSUMED PATIENT CARE AT 1900. PATIENT ALERT AND ORIENTED TIMES FOUR. AT BEDSIDE. PERITONEAL DIALYSIS HOOKED UP EARLIER IN THE DAY. NO COMPLAINTS OF PAIN OR DISCOMFORT NOTED. HOURLY ROUNDING AND WATERWAY TRAFFIC CHECKER COMPLETED DOCUMENTED.
[2019-06-26 08:00] VITALS: BP 165/64
[2019-06-26 11:30] VITALS: BP 169/61
[2019-06-26 17:24] VITALS: BP 174/56
--- NOTE | 2019-06-26 19:02 | NUR ---
PT REMAINED SR BBB ON THE CARD MONITOR, PT HAD A GASTRIC EMPTY STUDY, SEE NOTES FOR DETAILS. PT WAS COMPLIENT WITH NURSING CARES. PT WAS PLEASANT. PT WAS VVS. HOURLY ROUNDS COMPLETED AND CHARTED.
[2019-06-26 20:00] VITALS: BP 174/68
[2019-06-27] VITALS: BP 155/49
--- NOTE | 2019-06-27 04:11 | NUR ---
ASSUMED PATIENT CARE AT 1900. PATIENT ALERT AND ORIENTED TIMES FOUR. NO COMPLAINTS OF PAIN THROUGHOUT SHIFT. PERITONEAL DIALYSIS HOOKED UP AT APPROX 2130 LAST EVENING. COMMISSARY ASSISTANT AND HOURLY ROUNDING COMPLETED CHARTED.
[2019-06-27 04:48] LABS: HEMATOCRIT 25.7 % (37.0-47.0); MCH 28.1 pg (26.0-34.0); MCHC 31.2 g/dL (28.0-37.0); MCV 90.1 fL (80.0-100.0); MPV 7.9 fl. (7.2-11.1); RBC 2.86 mil/uL (4.20-5.00); RDW-CV 18.3 % (10.5-14.5); WBC 5.7 thou/uL (4.0-11.0)
[2019-06-27 04:49] VITALS: BP 189/60
[2019-06-27 05:00] LABS: CALCIUM 8.1 mg/dL (8.5-10.1); CREATININE 2.3 mg/dL (0.6-1.3); POTASSIUM 3.1 mmol/L (3.5-5.1)
[2019-06-27 08:00] VITALS: BP 176/51
[2019-06-27 12:12] VITALS: BP 94/67
--- NOTE | 2019-06-27 12:44 | NUR ---
Spoke with , anticipate that Pt will be medically stable to dc to home with HH over the weekend. CM faxed initial referral to [facility], will fax orders at ne to [phone]
[2019-06-27 15:32] VITALS: BP 119/54
--- NOTE | 2019-06-27 19:19 | NUR ---
ASSUMED PT CARE AT 0730, PT NOTED TO BE HOOKED UP TO PERTINEAL DIALYSIS. PT TRACING AFIB / BBB THIS SHIFT. PT ASSESSMENT ET HOURLY ROUNDS COMPLETED ET DOCUMENTED IN THE CHART. PT REMAINED COMPLIANT TO ALL NURSING CARE. NO C/O PAIN OR DISCOMFORT THIS SHIFT.
[2019-06-27 19:30] VITALS: BP 139/76
[2019-06-28] VITALS: BP 133/39
[2019-06-28 04:00] VITALS: BP 150/46
[2019-06-28 05:21] LABS: CALCIUM 7.7 mg/dL (8.5-10.1); CREATININE 2.3 mg/dL (0.6-1.3)
[2019-06-28 05:26] LABS: POTASSIUM 2.9 mmol/L (3.5-5.1)
--- NOTE | 2019-06-28 05:52 | NUR ---
PT TOLERATES BREATHING TX WELL. AT THIS TIME SHE HAS A LOOSE COUGH THAT IS NONPRODUCTIVE. AT THIS TIME SHE HAS COURSE BREATH SOUNDS, ADEQUATE OXYGENATION AT 97% SPO2 ON 2 L NC. SHE STATES SHE DOES NOT WEAR OXYGEN AT HOME. CXR SHOWS INFILTRATES IN THE RIGHT LUNG. RECOMENDATION AT THIS TIME IS TO ADD A FLUTTER DEVICE TO HER PRESENT BREATHING TX TO ENABLE PT TO EXPECTORATE HER RETAINED SECRETIONS.
[2019-06-28 08:00] VITALS: BP 185/62
[2019-06-28 11:58] VITALS: BP 161/41
[2019-06-28 15:57] VITALS: BP 152/63
--- NOTE | 2019-06-28 18:23 | NUR ---
PT CALLED OUT ASKING FOR JUICE, STATED SHE THOUGHT HER BLOOD SUGAR WAS LOW. FINGER STICK REVEALED IT WAS 32. PT GIVEN APPLE JUICE. RECHECK WAS 69 ADDITIONAL JUICE GIVEN. PT STATES SHE FEELS BETTER.
[2019-06-28 20:00] VITALS: BP 151/46
[2019-06-29] VITALS: BP 167/58
[2019-06-29 04:00] VITALS: BP 139/42
--- NOTE | 2019-06-29 04:57 | NUR ---
ASSUMED PT CARE AT APPROX 1930. PT IS DROWSY BUT AROUSABLE, ORIENTED X4. VSS ON 2L OF O2, NO DESATURATIONS NOTED. CRIMINAL INTELLIGENCE ANALYST IN PLACE TRACING SR BBB, WITH A 1ST DEGREE AVB. PT DENIES PAIN THIS SHIFT. PERITONEAL DIALYSIS IN PROGRESS. POSITION CHANGES DONE Q2HRS. PT IS CLOSELY MONITORED. FALL PRECAUTIONS IN PLACE. CALL LIGHT WITHIN REACH.
[2019-06-29 08:00] VITALS: BP 139/50
--- NOTE | 2019-06-29 08:00 | NUR ---
AM ASSESSMENT COMPLETE, DEFER TO COMPUTER CHARTING. CAR BODY INSPECTOR TRACKING SR WITH BBB. IN BED RESTING WITH HOB ELEVATED - 02 ON 2L PER NC. DENIES PAIN, DIZZINESS, NAUSEA OR ANY DISCOMFORT AT THIS TIME. DRESSING CDI TO ABD DIALYSIS SITE. CALL LIGHT WITHIN REACH.
[2019-06-29] MEDS ORDERED: PEPCID20 MG PO (11:01)
[2019-06-29] MEDS ORDERED: HYDROCHLOROTHIA25 M2 PO (11:01)
[2019-06-29] MEDS ORDERED: LISINOPRIL20 MG PO (11:01)
[2019-06-29] MEDS ORDERED: PEPCID AC10 MG PO (11:18)
[2019-06-29] MEDS ORDERED: LISINOPRIL40 MG PO (11:18)
[2019-06-29 11:25] LABS: ALBUMIN 1.5 g/dL (3.4-5.0); CALCIUM 7.9 mg/dL (8.5-10.1); CREATININE 2.5 mg/dL (0.6-1.3); PHOSPHORUS* 2.3 mg/dL (2.5-4.9); POTASSIUM 4.8 mmol/L (3.5-5.1)
[2019-06-29] MEDS ORDERED: REGLAN 10 MG TA10 MG PO (11:25)
[2019-06-29 12:00] VITALS: BP 171/64
[2019-06-29 12:28] VITALS: BP 171/64
--- NOTE | 2019-06-29 12:59 | NUR ---
DISCHARGE REFERRAL FAXED TO [facility]. ALSO CALLED REFERRAL TO [facility] RN. RN NOTIFIED.
--- NOTE | 2019-06-29 13:30 | NUR ---
SWEEPER DRIVER TRACKING WITH NO CHANGE IN RHYTHM. TOLERATING DIET WITH NO COMPLAINTS OF NAUSEA OR PAIN TO NURSING. 02 REMAINS ON 2L PER NC. PATIENT SHOWING NO SIGN OF RESPIRATORY DISTRESS. DISCHARGE ORDERS RECEIVED. SWEEPER DRIVER AND [place] LOCK DC'D. ALL PERSONAL BELONGINGS COLLECTED BY NURSE JOSÉ MANUEL AND FOR DISCHARGE. BOTH PATIENT AND EDUCATED ON DISCHARGE INSTRUCTIONS, VERBALIZED UNDERSTANDING HAVING NO QUESTIONS. GIVEN WRITTEN DISCHARGE INSTRUCTIONS FOR REINFORCEMENT TEACHING.
--- NOTE | 2019-06-30 10:10 | NUR ---
PT ORDERS RECEIVED ON 06/29/19 AT 1039. PT DISCHARGED PRIOR TO COMPLETION OF PT EVALUATION AND INTERVENTIONS.
== END 2019-06-29 14:10 | disposition home health service (06) | DRG 377 ==
LOC: M.ERS 11:50 → M.2W 13:15 → M.TBA-ER 13:15 → M.2W 16:20
PROVIDERS: Emergency Medicine; Family Medicine; ADMIT Internal Medicine
DX: K92.2 Gastrointestinal hemorrhage, unspecified (principal); N18.6 End stage renal disease; D62 Acute posthemorrhagic anemia; K20.9 Esophagitis, unspecified; E11.43 Type 2 diabetes mellitus with diabetic autonomic (poly)neuropathy; G51.0 Bell's palsy; E87.6 Hypokalemia; E83.42 Hypomagnesemia; K31.84 Gastroparesis; J44.9 Chronic obstructive pulmonary disease, unspecified; E11.51 Type 2 diabetes mellitus with diabetic peripheral angiopathy without gangrene; I95.3 Hypotension of hemodialysis; Z91.19 Patient's noncompliance with other medical treatment and regimen; Z79.4 Long term (current) use of insulin; Z79.899 Other long term (current) drug therapy; Z88.0 Allergy status to penicillin; Z88.1 Allergy status to other antibiotic agents; Z79.51 Long term (current) use of inhaled steroids; Z87.891 Personal history of nicotine dependence

== ENCOUNTER → 2019-08-22 | Day surgery (SDC) | payer OTHER ==
[~2019-08-22] MED LIST changes: +HYDROCHLOROTHIA25 M2 PO; +LISINOPRIL40 MG PO; +NON-ASPIRIN EX500 M1 PO; +OMEPRAZOLE40 MG PO; +ONDANSETRON ODT8 MG PO; +PEPCID AC10 MG PO; +PEPCID20 MG PO; +PULMICORT0.5 MG/2 M INH; +VIRT-CAPS SOFTGE1 MG PO
--- NOTE | ~2019-08-22 | PROC ---
[address] [address] PROCEDURE REPORT Name: OWEN MARCANO Room: [facility]..#: [id number] Admission: 08/22/19 Attend Phys: Estefanía Burgess MD Discharge: Date of : 40 Report #: [id number] THIS REPORT FOR: //name// For GI report, please see the Provation report in Perceptive 7 content. By: 0646Medical Records Staff EDUARDO /ANNE MARIE
[2019-08-22 09:30] LABS: HEMATOCRIT 38.4 % (37.0-47.0); HEMOGLOBIN 12.5 gm/dL (12.0-15.0); MCH 27.9 pg (26.0-34.0); MCHC 32.5 g/dL (28.0-37.0); MCV 85.8 fL (80.0-100.0); MPV 8.1 fl. (7.2-11.1); RBC 4.48 mil/uL (4.20-5.00); RDW-CV 17.5 % (10.5-14.5); WBC 8.4 thou/uL (4.0-11.0)
[2019-08-22 09:40] LABS: CREATININE 4.4 mg/dL (0.6-1.3); POTASSIUM 4.6 mmol/L (3.5-5.1)
[2019-08-22 09:45] LABS: ALBUMIN 1.9 g/dL (3.4-5.0); TOTAL BILIRUBIN 0.3 mg/dL (<0.1-1.0); TOTAL PROTEIN 6.6 g/dL (6.4-8.2)
--- NOTE | 2019-08-26 17:06 | PATH ---
[facility] [address] [place] [address] PATHOLOGY RPT PROCEDURE Name: SANJUANA MARCANO SIMON Room: [facility] Faustino#: [id number] Admission: 08/22/19 Date of : 40 Discharge: Report #: [id number] Path Case #: [id number] [facility] Accession Number: [id number] . 01 Material submitted: . PART A: stomach - GASTRIC BIOPSIES FOR GASTRITIS PART B: esophagus - DISTAL ESOPHAGUS BIOPSY; RULE OUT CHU'S, DYSPLASIA. Modifiers: distal PART C: cecum - CECAL POLYPS . 01 Clinical history: . Iron deficiency anemia, hx GI bleed A. Biopsies for gastritis B. R/O Chu's, dysplasia . 02 Diagnosis: A. Gastric biopsies for gastritis: - Mild chronic gastritis typical of reactive gastropathy (chemical gastritis), negative for Helicobacter pylori organisms and dysplasia. . B. 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 . C. Cecal polyps: - Multiple tubular adenomas, one with high-grade dysplasia. See comment. . (IVETTE:fidel; 08/26/2019) R 08/26/2019 1142 Local . 02 Comment: The largest measured cecal polyp inked blue shows focal high-grade dysplasia and dysplastic/adenomatous changes extend to the inked edges. Specimen C reviewed with Dr. Dyllan Coffey who agrees with the diagnosis. Dr. Burgess notified at approximately 1540 on 08/26/2019. (IVETTE:fidel; 08/26/2019) . Special stain on A: H. pylori immuno . 02 Electronically signed: . Jean Valdez MD, Pathologist NPI- [id number] . 01 Gross description: . A. Received in formalin labeled "Sanjuana Marcano, gastric biopsies for gastritis," are three segments of gaona-brown soft tissue measuring 0.6 [place] [address] PATHOLOGY RPT PROCEDURE Name: SANJUANA MACRANO Room: [facility].#: [id number] Admission: 08/22/19 Date of : 40 Discharge: Report #: [id number] Path Case #: [id number] 0.4 x 0.3 cm in aggregate dimensions and ranging from 0.3 to 0.4 cm in maximum dimension. The specimen is submitted entirely in cassette A1. . B. Received in formalin labeled "Sanjuana Marcano, distal esophagus biopsy; R/O Chu's, dysplasia," are three fragments of gaona-brown soft tissue measuring 0.5 x 0.4 x 0.1 cm in aggregate dimensions and ranging from 0.3 to 0.5 cm in maximum dimension. The specimen is submitted entirely in cassette B1. . C. Received in formalin labeled "Sanjuana Marcano, cecal polyps," are three polypoid segments of gaona-brown soft tissue measuring 0.5 x 0.3 x 0.2 cm (inked black), 0.5 x 0.4 x 0.3 cm (inked yellow), and 0.8 x 0.5 x 0.4 cm (inked blue) in greatest dimensions admixed with a 0.8 x 0.5 x 0.2 cm aggregate of smaller gaona-brown soft tissue fragments and colorless mucoid material. The inked segments are sectioned and submitted entirely in cassette C1, and the remaining tissue is submitted entirely in cassette C2. (DAC; 08/25/2019) XDC/XNC 08/25/2019 [facility] Local . 02 Pathologist provided ICD-10: K29.50, K20.9, D12.0 . 02 CPT . 289175, 768702, 106646, H03013 Specimen Comment: A courtesy copy of this report has been sent to [phone], [phone] Specimen Comment: 1181 Specimen Comment: Report sent to / DR HIGHTOWER Performed at: 01 [facility] [address] [place] [address] [address], [place] [id number] MD Chad Thomas MD Phone: [phone] Performed at: 02 [facility] [place] [address] [address] [place], [place] [id number] MD Jean Valdez MD Phone: [phone]
== END | disposition home or self-care (01) ==
LOC: M.SUR 08:46
PROVIDERS: Internal Medicine Gastroenterology
DX: Z12.11 Encounter for screening for malignant neoplasm of colon (principal); Z86.010 Personal history of colon polyps; D12.0 Benign neoplasm of cecum; K57.30 Diverticulosis of large intestine without perforation or abscess without bleeding; K64.8 Other hemorrhoids; K29.50 Unspecified chronic gastritis without bleeding; K31.9 Disease of stomach and duodenum, unspecified; K21.0 Gastro-esophageal reflux disease with esophagitis; K22.8 Other specified diseases of esophagus; K44.9 Diaphragmatic hernia without obstruction or gangrene; E11.22 Type 2 diabetes mellitus with diabetic chronic kidney disease; N18.6 End stage renal disease; J44.9 Chronic obstructive pulmonary disease, unspecified; I73.9 Peripheral vascular disease, unspecified; Z87.891 Personal history of nicotine dependence; Z98.890 Other specified postprocedural states; Z79.899 Other long term (current) drug therapy; Z86.2 Personal history of diseases of the blood and blood-forming organs and certain disorders involving the immune mechanism; Z88.0 Allergy status to penicillin; Z88.8 Allergy status to other drugs, medicaments and biological substances; Z99.2 Dependence on renal dialysis

== ENCOUNTER 2019-12-14 20:45 | Inpatient (IN) | payer OTHER ==
[~2019-12-14] VITALS: Ht 160 cm; Wt 67.1 kg
--- NOTE | ~2019-12-14 | CON ---
[address] [address] CONSULTATION Name: BISHOPOWEN ANN Room: [address] IN M.R.#: [id number] Admission: 12/14/19 Attend Phys: Kevon Bunn MD Discharge: Date of : 40 Report #: [id number] THIS REPORT FOR: //name// cc: Tima Patiño Bruce R. DO ~ THIS REPORT FOR: //name// CC: Kevon Patiño DATE OF SERVICE: 12/15/2019 REQUESTING PHYSICIAN: Dr. Read. REASON FOR CONSULTATION: Assist in providing dialysis. HISTORY OF PRESENT ILLNESS: This patient is a very pleasant 79-year-old female, very well known to us. She has end-stage renal disease, on chronic peritoneal dialysis. She also has diabetes mellitus type 2. She has poor appetite and COPD. The patient presents with decreased mentation, very poor appetite. The patient's states that she has been eating and drinking anything for the last couple of days. She was found to have urinary tract infection. Urine with 2+ leukocyte esterase, [place] [address] and she was admitted with diagnoses of altered mental status and urinary tract infection. A chest x-ray was done revealed right lower lobe pneumonia, cardiomegaly and emphysematous changes of the lungs. She was started on Levaquin. Hopefully, will cover both UTI and pneumonia. PAST MEDICAL HISTORY: As I mentioned earlier. SOCIAL HISTORY: Supportive family. No current tobacco or alcohol abuse. MEDICATIONS: Prior to admission reviewed. REVIEW OF SYSTEMS: Positive for the symptoms as I mentioned earlier, otherwise negative. PHYSICAL EXAMINATION: GENERAL: She is very somnolent, but arousable. HEENT: She has infection of both eyes and she has [place] [address] CONSULTATION Name: OWEN MARCANO SIMON Room: [address]#: [id number] Admission: 12/14/19 Attend Phys: Kevon Bunn MD Discharge: Date of : 40 Report #: [id number] NECK: Supple. LUNGS: Decreased air movements. CARDIOVASCULAR: Regular rate. ABDOMEN: Soft. LOWER EXTREMITIES: No edema. Her PD catheter in place. ASSESSMENT: 1. End-stage renal disease. 2. Right lower lobe pneumonia. 3. Possible urinary tract infection. 4. Cardiomegaly. 5. Chronic obstructive pulmonary disease. PLAN: 1. Gentle hydration now because she has not been eating or drinking anything for the last 2 days. 2. Continue antibiotics. 3. Continue peritoneal dialysis. By: 1052 1410Evan Peckov, MD /PMT
[2019-12-14 20:53] VITALS: BP 131/74
[2019-12-14] MEDS ORDERED: CARVEDILOL12.5 MG PO (21:01)
[2019-12-14] MEDS ORDERED: FUROSEMIDE 40 M40 MG PO (21:02)
[2019-12-14 22:07] LABS: HEMOGLOBIN 10.7 gm/dL (12.0-15.0); NUCLEATED RBCS 0 /100WBC
[2019-12-14 22:13] LABS: HEMATOCRIT 32.5 % (37.0-47.0); MCHC 33.1 g/dL (28.0-37.0); MCV 96.9 fL (80.0-100.0); MPV 8.7 fl. (7.2-11.1); PLATELET COUNT* 459 thou/uL (150-400); RBC 3.35 mil/uL (4.20-5.00); RDW-CV 14.3 % (10.5-14.5); WBC 11.5 thou/uL (4.0-11.0)
[2019-12-14 22:17] LABS: BE 1.2 mmol/L (-2 to +3); PCO2 40.3 mmHg (35.0-45.0); PO2 64.8 mmHg (75.0-100.0); pH 7.422 (7.340-7.450)
[2019-12-14 22:20] LABS: CALCIUM 8.2 mg/dL (8.5-10.1); POTASSIUM 3.5 mmol/L (3.5-5.1)
[2019-12-14 22:25] LABS: MAGNESIUM 1.3 mg/dL (1.8-2.4); TOTAL BILIRUBIN 0.4 mg/dL (<0.1-1.0); TOTAL PROTEIN 6.4 g/dL (6.4-8.2)
[2019-12-14 22:44] LABS: URINE BILIRUBIN NEGATIVE (Negative); URINE BLOOD 1+ (Negative); URINE COLOR YELLOW; URINE GLUCOSE-RANDOM NEGATIVE (Negative); URINE KETONES NEGATIVE (Negative); URINE NITRITE-REFLEX NEGATIVE (Negative); URINE PROTEIN 2+ (Negative); URINE UROBILINOGEN 0.2 E.U./dl (0.2-1.0)
[2019-12-14 22:45] LABS: URINE CLARITY CLOUDY; URINE LEUKOCYTES-REFLEX 2+ (Negative)
[2019-12-14 22:48] LABS: ABSOLUTE EOSINOPHILS 0.1 thou/uL (0.0-0.7); ABSOLUTE LYMPHOCYTES 1.2 thou/uL (0.8-5.3); ABSOLUTE MONOCYTES 0.8 thou/uL (0.0-1.2); ABSOLUTE NEUTROPHILS 9.4 thou/uL (1.6-8.1); ATYPICAL LYMPHS 1 %; PLATELET ESTIMATE ADEQUATE
[2019-12-14 22:52] LABS: BACTERIA-REFLEX >30 Many /HPF (None Seen); CASTS None Seen /LPF (None Seen); CRYSTALS None Seen /LPF (None Seen); SQUAMOUS NONE SEEN /LPF (0-3); URINE RBC 3-10 Few /HPF (0-2); URINE WBC-REFLEX >25 Many /HPF (0-5)
[2019-12-14 23:51] VITALS: BP 153/94
[2019-12-15 04:00] VITALS: BP 122/41
[2019-12-15 08:00] VITALS: BP 135/44
[2019-12-15] MEDS ORDERED: MAXITROL EYE O3.5 GM OPHTHALMIC (10:49)
[2019-12-15] MEDS ORDERED: OCUFLOX5 ML LT. EYE (10:50)
[2019-12-15] MEDS ORDERED: CALCIUM ACETAT667 M1 PO (10:51)
[2019-12-15] MEDS ORDERED: COLACE100 MG PO (10:53)
[2019-12-15] MEDS ORDERED: COMBIVENT RESPIM4 GM INH (10:54)
[2019-12-15] MEDS ORDERED: LASIX 40 MG TAB40 MG PO (10:55)
[2019-12-15] MEDS ORDERED: LACTULOSE20 GM/30 M PO (10:55)
[2019-12-15] MEDS ORDERED: TUMS300 MG PO (10:58)
[2019-12-15] MEDS ORDERED: ZANTAC 150MG T150 M1 PO (10:59)
[2019-12-15 12:00] VITALS: BP 139/60
[2019-12-15 16:00] VITALS: BP 139/52
[2019-12-15 20:00] VITALS: BP 126/50
[2019-12-16] VITALS (8 sets, daily range): BP systolic 95–172; BP diastolic 40–86
[2019-12-16 04:30] LABS: HEMATOCRIT 28.4 % (37.0-47.0); HEMOGLOBIN 9.6 gm/dL (12.0-15.0); MCH 32.9 pg (26.0-34.0); MCHC 33.9 g/dL (28.0-37.0); MCV 96.9 fL (80.0-100.0); MPV 8.1 fl. (7.2-11.1); RBC 2.93 mil/uL (4.20-5.00); WBC 8.1 thou/uL (4.0-11.0)
[2019-12-16 04:53] LABS: CALCIUM 7.6 mg/dL (8.5-10.1); CREATININE 6.1 mg/dL (0.6-1.3); POTASSIUM 3.1 mmol/L (3.5-5.1)
[2019-12-17 04:00] VITALS: BP 150/63
[2019-12-17 04:19] LABS: HEMOGLOBIN 9.8 gm/dL (12.0-15.0); MCH 32.8 pg (26.0-34.0); MCV 96.5 fL (80.0-100.0); MPV 8.2 fl. (7.2-11.1); RDW-CV 14.4 % (10.5-14.5); WBC 8.4 thou/uL (4.0-11.0)
[2019-12-17 04:43] LABS: CREATININE 5.5 mg/dL (0.6-1.3); POTASSIUM 3.7 mmol/L (3.5-5.1)
[2019-12-17 08:00] VITALS: BP 159/52
[2019-12-17 12:00] VITALS: BP 169/55
[2019-12-17 16:00] VITALS: BP 139/66
[2019-12-17 20:00] VITALS: BP 172/87
[2019-12-18] VITALS (7 sets, daily range): BP systolic 111–154; BP diastolic 46–61
[2019-12-18 05:57] LABS: HEMATOCRIT 27.8 % (37.0-47.0); HEMOGLOBIN 9.4 gm/dL (12.0-15.0); MCH 32.7 pg (26.0-34.0); MCHC 33.6 g/dL (28.0-37.0); MCV 97.2 fL (80.0-100.0); MPV 8.6 fl. (7.2-11.1); NUCLEATED RBCS 0 /100WBC; PLATELET COUNT* 445 thou/uL (150-400); RBC 2.86 mil/uL (4.20-5.00); RDW-CV 14.2 % (10.5-14.5); WBC 8.7 thou/uL (4.0-11.0)
[2019-12-18 06:20] LABS: ALBUMIN 1.5 g/dL (3.4-5.0); CALCIUM 7.9 mg/dL (8.5-10.1); CREATININE 5.3 mg/dL (0.6-1.3); POTASSIUM 3.5 mmol/L (3.5-5.1)
[2019-12-18 06:35] LABS: ABSOLUTE BASOPHILS 0.2 thou/uL (0.0-0.2); ABSOLUTE EOSINOPHILS 0.2 thou/uL (0.0-0.7); ABSOLUTE MONOCYTES 0.9 thou/uL (0.0-1.2); ABSOLUTE NEUTROPHILS 5.5 thou/uL (1.6-8.1)
[2019-12-18 06:36] LABS: PLATELET ESTIMATE ADEQUATE
[2019-12-19] VITALS (7 sets, daily range): BP systolic 123–151; BP diastolic 41–55
[2019-12-19 04:57] LABS: ALBUMIN 1.4 g/dL (3.4-5.0); CALCIUM 7.8 mg/dL (8.5-10.1); CREATININE 5.2 mg/dL (0.6-1.3); POTASSIUM 4.1 mmol/L (3.5-5.1)
[2019-12-19 05:03] LABS: HEMATOCRIT 26.6 % (37.0-47.0); MCH 32.7 pg (26.0-34.0); MCHC 33.8 g/dL (28.0-37.0); MCV 96.7 fL (80.0-100.0); MPV 8.6 fl. (7.2-11.1); RBC 2.75 mil/uL (4.20-5.00); WBC 10.9 thou/uL (4.0-11.0)
[2019-12-19] MEDS ORDERED: LEVAQUIN 750 M750 MG PO (10:28)
--- NOTE | 2019-12-19 14:59 | EKG ---
[place] [address] ELECTROCARDIOGRAM REPORT Name: OWEN MARCANO Room: [address] DIS IN M.R.#: [id number] Admission: 12/14/19 Attend Phys: Kevon Bunn, Discharge: 12/19/19 Date of : 40 Date of Service: 12/14/19 2218 Report #: [id number] THIS REPORT FOR: //name// [facility] ED Test Date: 2019-12-14 Test Time: 22:18:27 Pat Name: OWEN MARCANO Department: Room: [facility] Gender: F Debeaker: DANNY : 1940 Requested By: Yael Wood Order Number: [id number] MD: Eliseo Owens Measurements Intervals [place] Rate: 71 P: 0 WA: 67 QRS: -20 QRSD: 139 T: 82 QT: 431 QTc: 469 Interpretive Statements Sinus rhythm with first degree av block Multiple ventricular premature complexes Left bundle branch block Compared to ECG 06/24/2019 12:10:48 Ventricular premature complex(es) now present Electronically Signed On 12-15-2019 10:30:37 BUILDING ARCHITECTURAL DESIGNER by Eliseo Owens [email or web address] <ELECTRONICALLY SIGNED> By: Eliseo Owens MD, FACC 12/15/19 1030 2218 Eliseo Owens MD, [facility] /EPI
== END 2019-12-19 14:55 | disposition home health service (06) | DRG 177 ==
LOC: M.ERS 20:45 → M.2W 22:47 → M.TBA-ER 22:47 → M.2W 12-15 00:01
PROVIDERS: Internal Medicine; Personal Emergency Response Attendant; ADMIT Internal Medicine
DX: J69.0 Pneumonitis due to inhalation of food and vomit (principal); E43 Unspecified severe protein-calorie malnutrition; N18.6 End stage renal disease; N17.9 Acute kidney failure, unspecified; N39.0 Urinary tract infection, site not specified; I12.0 Hypertensive chronic kidney disease with stage 5 chronic kidney disease or end stage renal disease; E11.22 Type 2 diabetes mellitus with diabetic chronic kidney disease; E11.51 Type 2 diabetes mellitus with diabetic peripheral angiopathy without gangrene; J44.9 Chronic obstructive pulmonary disease, unspecified; E83.42 Hypomagnesemia; F03.90 Unspecified dementia, unspecified severity, without behavioral disturbance, psychotic disturbance, mood disturbance, and anxiety; K59.00 Constipation, unspecified; E86.9 Volume depletion, unspecified; Z88.1 Allergy status to other antibiotic agents; Z88.0 Allergy status to penicillin; Z88.8 Allergy status to other drugs, medicaments and biological substances; Z82.49 Family history of ischemic heart disease and other diseases of the circulatory system; Z83.3 Family history of diabetes mellitus; Z87.891 Personal history of nicotine dependence; Z68.26 Body mass index [BMI] 26.0-26.9, adult; Z99.2 Dependence on renal dialysis

== ENCOUNTER 2019-12-30 13:47 | Inpatient (IN) | payer OTHER ==
[~2019-12-30] VITALS: Ht 160 cm; Wt 59.4 kg
[~2019-12-30 13:47] MED LIST changes: +CALCIUM ACETAT667 M1 PO; +FUROSEMIDE 40 M40 MG PO; +LACTULOSE20 GM/30 M PO; +LASIX 40 MG TAB40 MG PO; +LEVAQUIN 750 M750 MG PO; +MAXITROL EYE O3.5 GM OPHTHALMIC; +OCUFLOX5 ML LT. EYE; +TUMS300 MG PO; +ZANTAC 150MG T150 M1 PO
[2019-12-30 14:03] VITALS: BP 176/55
[2019-12-30 15:07] LABS: INFLUENZA A ANTIGEN Negative (Negative); INFLUENZA B ANTIGEN Negative (Negative)
[2019-12-30 15:25] LABS: ABSOLUTE BASOPHILS 0.1 thou/uL (0.0-0.2); ABSOLUTE EOSINOPHILS 0.1 thou/uL (0.0-0.7); ABSOLUTE LYMPHOCYTES 1.7 thou/uL (0.8-5.3); ABSOLUTE MONOCYTES 1.2 thou/uL (0.0-1.2); ABSOLUTE NEUTROPHILS 9.9 thou/uL (1.6-8.1); BASOPHILS 0.4 %; EOSINOPHILS 1.1 %; HEMATOCRIT 30.4 % (37.0-47.0); HEMOGLOBIN 10.1 gm/dL (12.0-15.0); LYMPHOCYTES 12.9 %; MCHC 33.2 g/dL (28.0-37.0); MCV 99.2 fL (80.0-100.0); MONOCYTES 9.3 %; MPV 8.9 fl. (7.2-11.1); NUCLEATED RBCS 0 /100WBC; PLATELET COUNT* 349 thou/uL (150-400); POLYS 76.3 %; RBC 3.06 mil/uL (4.20-5.00); RDW-CV 13.9 % (10.5-14.5)
[2019-12-30 15:35] LABS: ANION GAP 8 mmol/L (7-16); BUN 50 mg/dL (7-18); CALCIUM 7.8 mg/dL (8.5-10.1); CHLORIDE 92 mmol/L (98-107); CO2 31 mmol/L (21-32); CREATININE 5.9 mg/dL (0.6-1.3); GLUCOSE 380 mg/dL (70-99); POTASSIUM 3.2 mmol/L (3.5-5.1); SODIUM 131 mmol/L (136-145)
[2019-12-30 15:36] LABS: APTT 28.6 Seconds (25.0-31.3); INR 1.1; PROTIME 11.5 Seconds (9.20-11.50)
--- NOTE | 2019-12-30 15:41 | EKG ---
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
[2019-12-30 15:49] LABS: ALKALINE PHOSPHATASE 88 U/L (46-116); NT-PRO BRAIN NAT PEPTIDE > 35000 pg/mL (<300); SGOT 25 U/L (15-37); SGPT 14 U/L (30-65); TOTAL BILIRUBIN 0.3 mg/dL (<0.1-1.0); TOTAL PROTEIN 6.3 g/dL (6.4-8.2)
[2019-12-30 19:41] VITALS: BP 146/52
[2019-12-30 19:48] VITALS: BP 155/53
[2019-12-31] VITALS: BP 148/44
[2019-12-31 03:58] VITALS: BP 106/40
[2019-12-31 05:27] LABS: ALBUMIN 1.5 g/dL (3.4-5.0); CALCIUM 7.4 mg/dL (8.5-10.1); CREATININE 6.1 mg/dL (0.6-1.3); MAGNESIUM 1.1 mg/dL (1.8-2.4); POTASSIUM 3.1 mmol/L (3.5-5.1); TOTAL BILIRUBIN 0.3 mg/dL (<0.1-1.0); TOTAL PROTEIN 4.8 g/dL (6.4-8.2)
[2019-12-31 06:01] LABS: HEMATOCRIT 23.5 % (37.0-47.0); MCH 33.2 pg (26.0-34.0); MCV 97.6 fL (80.0-100.0); MPV 8.4 fl. (7.2-11.1); RBC 2.41 mil/uL (4.20-5.00); RDW-CV 13.7 % (10.5-14.5); WBC 8.1 thou/uL (4.0-11.0)
[2019-12-31 08:00] VITALS: BP 132/75
--- NOTE | 2019-12-31 08:01 | NUR ---
REPORT RECIEVED FROM ER. PT ORIENTED TO ROOM, CALL LIGHT SHOWN, FALL AGREEMENT WENT OVER, PT STATED UNDERSTANDING. ADMISSION DOCUMENTED. MEDS GIVEN PER E-MAR. PT REPOSITIONED FREQUENTLY. PT REPORTED DIFFICULTY BREATING, PLACED ON 2L NC, RT NOTIFIED. WILL CONTINUE WITH PLAN OF CARE.
--- NOTE | 2019-12-31 12:00 | NUR ---
CM COMPLETED INITIAL ASSESSMENT. PT HAD O2 APPLIED DURING ASSESSMENT. PT DENIES USING O2 AT HOME. PT LIVES AT HOME W/SPOUSE. PT DOES DIALYSIS NIGHTLY AT HOME, PT STATES SHE HAS ALL HER EQUIP NEEDS FOR DIALYSIS AT HOME. PT USES W/C. STATES SHE ISNT AMBULATORY. FAMILY IS SUPPORTIVE. PT DENIES HX W/HH OR SNF. CM TO CONT TO FOLLOW.
[2019-12-31 13:06] VITALS: BP 115/39
--- NOTE | 2019-12-31 15:23 | 2DMMODE ---
[place] [address] 2 D/M-MODE ECHOCARDIOGRAM Name: OWEN MARCANO Room: [address] IN [facility]#: [id number] Admission: 12/30/19 Attend Phys: Lina Rivera, Discharge: Date of : 40 Date of Service: 12/31/19 1521 Report #: [id number] THIS REPORT FOR: cc: Tima Patiño,Tima Raphael,Eliseo Murray MD [facility] ~ APPROVED REPORT Study performed: 12/31/2019 10:17:29 EXAM: Comprehensive 2D, Doppler, and color-flow Echocardiogram Patient Location: In-Patient Room #: [facility] Status: routine BSA: 1.56 HR: 70 bpm BP: 106/40 mmHg Rhythm: NSR Other Information Study Quality: Good Indications Elevated Troponin 2D Dimensions IVSd: 9.58 (7-11mm) LVOT Diam: 19.12 (18-24mm) LVDd: 45.89 mm PWd: 9.65 (7-11mm) Ascending Ao: 26.20 (22-36mm) LVDs: 37.90 (25-40mm) Aortic Root: 29.37 mm Volumes Left Atrial Volume (Systole) LA ESV Index: 29.20 mL/m2 Aortic Valve AoV Peak Moreno.: 1.07 m/s AO Peak Gr.: 4.60 mmHg LVOT Max P.06 mmHg AO Mean Gr.: 2.43 mmHg LVOT Mean P.02 mmHg LVOT Max V: 0.72 m/s AO V2 VTI: 25.21 cm LVOT Mean V: 0.47 m/s TEQUILA (VTI): 2.04 cm2 LVOT V1 VTI: 17.93 [place] [address] 2 D/M-MODE ECHOCARDIOGRAM Name: OWEN MARCANO Room: [address] IN .R.#: [id number] Admission: 12/30/19 Attend Phys: Lina Rivera, Discharge: Date of : 40 Date of Service: 12/31/19 1521 Report #: [id number] Mitral Valve E/A Ratio: 1.07 MV Decel. Time: 186.47 ms MV E Max Moreno.: 0.90 m/s MV PHT: 54.08 ms MVA (PHT): 4.07 cm2 TDI E/Lateral E': 10.00 E/Medial E': 15.00 Medial E' Moreno.: 0.06 m/s Lateral E' Moreno.: 0.09 m/s Pulmonary Valve PV Peak Moreno.: 0.87 m/s PV Peak Gr.: 3.05 mmHg Left Ventricle The left ventricle is normal size. There is normal LV segmental wall motion. There is normal left ventricular wall thickness. Left ventricular systolic function is normal. The left ventricular ejection fraction is within the normal range. LVEF is 50-55%. Right Ventricle Right ventricle is dilated. The right ventricular systolic function is normal. Atria Left atrium is mildly dilated. Right atrium is dilated. Aortic Valve Mild aortic valve sclerosis. No aortic regurgitation is present. There is no aortic valvular stenosis. Mitral Valve There is mitral annular calcification. Mild mitral regurgitation. No evidence of mitral valve stenosis. Tricuspid Valve The tricuspid valve is normal in structure. There is trace tricuspid valve regurgitation noted. estimated pa pressure 40 mm Hg Pulmonic Valve The pulmonary valve is normal in structure. There is no pulmonic valvular regurgitation. Great Vessels The aortic root is normal in size. IVC [place] [address] 2 D/M-MODE ECHOCARDIOGRAM Name: OWEN MARCANO SIMON Room: [address] IN [facility]#: [id number] Admission: 12/30/19 Attend Phys: iLna Rivera, Discharge: Date of : 40 Date of Service: 12/31/19 1521 Report #: [id number] collapses >50% with inspiration. Pericardium There is no pericardial effusion. <Conclusion> LVEF is 50-55%. Left atrium is mildly dilated. Mild aortic valve sclerosis. Mild mitral regurgitation. There is trace tricuspid valve regurgitation noted. estimated pa pressure 40 mm Hg <ELECTRONICALLY SIGNED> By: Eliseo Owens MD, FACC 12/31/19 [phone] Eliseo Owens MD, FACC /INF
[2019-12-31 17:24] VITALS: BP 117/96
--- NOTE | 2019-12-31 18:06 | NUR ---
PATIENT RESTING IN BED. BEDREST. PERITONEAL DIALYSIS CURRENTLY WORKING. POOR APPETITE. INCONTINENT AT TIMES. 2 BOWEL MOVEMENTS TODAY. HOURLY ROUNDING COMPLETED FOR PATIENT SAFETY.
[2019-12-31 20:10] VITALS: BP 184/53
[2020-01-01] VITALS (7 sets, daily range): BP systolic 106–162; BP diastolic 41–80
[2020-01-01 04:46] LABS: HEMATOCRIT 23.9 % (37.0-47.0); HEMOGLOBIN 8.4 gm/dL (12.0-15.0); MCH 34.7 pg (26.0-34.0); MCHC 35.3 g/dL (28.0-37.0); MCV 98.4 fL (80.0-100.0); MPV 8.9 fl. (7.2-11.1); RBC 2.43 mil/uL (4.20-5.00); RDW-CV 13.6 % (10.5-14.5); WBC 8.6 thou/uL (4.0-11.0)
[2020-01-01 05:01] LABS: ALBUMIN 1.6 g/dL (3.4-5.0); ALKALINE PHOSPHATASE 61 U/L (46-116); ANION GAP 7 mmol/L (7-16); BUN 52 mg/dL (7-18); CALCIUM 7.9 mg/dL (8.5-10.1); CHLORIDE 98 mmol/L (98-107); CHOLESTEROL 91 mg/dL (<200); CO2 31 mmol/L (21-32); CREATININE 6.2 mg/dL (0.6-1.3); GLUCOSE 98 mg/dL (70-99); HDL CHOLESTEROL 33 mg/dL (>40); LDL CHOLESTEROL 48 mg/dL (<100); MAGNESIUM 1.1 mg/dL (1.8-2.4); POTASSIUM 3.2 mmol/L (3.5-5.1); SGOT 18 U/L (15-37); SGPT 9 U/L (30-65); SODIUM 136 mmol/L (136-145); TC:HDL 2.8 Ratio (Not establshd); TOTAL BILIRUBIN 0.3 mg/dL (<0.1-1.0); TOTAL PROTEIN 4.9 g/dL (6.4-8.2); TRIGLYCERIDE 50 mg/dL (<150); VLDL 10 mg/dL (<40)
[2020-01-01 05:16] LABS: SERUM ASSESSMENT CLEAR
--- NOTE | 2020-01-01 05:40 | NUR ---
PT SLEPT MOST OF SHIFT. ASSESSMENT DOCUMENTED. MEDS GIVEN PER E-DEC. IV PATENT. PAIN MEDS GIVEN PER E-DEC. PT HOOKED UP TO PERITONEAL DIALYSIS THIS SHIFT. PT INCONTINENT OF BOWELS THIS SHIFT. WILL CONTINUE WITH PLAN OF CARE.
--- NOTE | 2020-01-01 10:30 | NUR ---
WOUND NURSE: PATIENT SEEN TO ADDRESS STAGE 1 PRESSURE INJURY ON THE LEFT HEEL MEASURING 1.5 X 1.5 CM. PRESENTS WITH INTACT LIGHT RED INTACT NONBLANCHEABLE SKIN. PLACED A HEELMEDIX BOOT TO OFFLOAD AND PROTECT HEEL. PATIENT WITH SKIN TEAR MEASURING 0.5 X 4.0 X 0.1 CM. EDGES ARE NOT WELL APPROXIMATED AND CONTAINS RED NONGRANULATING TISSUE IN THE WOUND BED. PERIWOUND AREA WITH PURPLISH RED ECCHYMOSIS AND SCANT SANGUINOUS DRAINAGE. CLEANSED WITH WOUND CLEANSER AND GAUZE, THEN APPLIED OIL EMULSION GAUZE UNDER BORDERED FOAM DRESSING. SKIN IS ATROPHIED. PATIENT IS DISINTERESTED IN TEACHING NOW.
--- NOTE | 2020-01-01 10:47 | CON ---
[address] [address] CONSULTATION Name: MARCANOOWEN SIMON Room: [address] IN M.R.#: [id number] Admission: 12/30/19 Attend Phys: Lina Rivera MD Discharge: Date of : 40 Report #: [id number] THIS REPORT FOR: //name// cc: Tima Patiño Bruce R. DO ~ THIS REPORT FOR: //name// CC: Tima Dorsey DATE OF SERVICE: 12/31/2019 CARDIOLOGY CONSULTATION HISTORY OF PRESENT ILLNESS: The patient is a 79-year-old white female who I was asked to see in the hospital today after she complained of being short of breath. The patient has an extensive past medical history. She has been a smoker for years. She has had previous carotid endarterectomy. She previously was followed by my partner, Dr. Erwin for elevated blood pressure. She apparently has no history of heart disease. She has end-stage renal disease and has been on peritoneal dialysis. She actually saw Dr. Erwin's nurse practitioner in September when she was doing well. The patient was brought to the Emergency Room yesterday by her . She had a recent episode of pneumonia. She apparently was rattling on respirations, was weak and running a fever. She was admitted for further evaluation and treatment. PAST MEDICAL HISTORY: Significant for no other surgical procedures. She does have a history of hyperlipidemia and hypertension. MEDICATIONS: Consists of albuterol inhaler, Plavix, Zetia, Lasix, nebulizer treatment, lisinopril, pravastatin, and carvedilol. ALLERGIES: SHE HAS ALLERGY TO ERYTHROMYCIN AND PENICILLIN. FAMILY HISTORY: Her father had high blood pressure. SOCIAL HISTORY: She is . She and her live in [place]. She is primarily using a wheelchair. She was a smoker, but quit this past year. No alcohol abuse. REVIEW OF SYSTEMS: She has had no history of stroke, liver disease, cancer, psychiatric illness, chronic skin condition. PHYSICAL EXAMINATION: GENERAL: Revealed an elderly frail appearing female, lying in bed. She [address], [place] [address] CONSULTATION Name: OWEN MARCANO Room: [address] IN [facility]#: [id number] Admission: 12/30/19 Attend Phys: Lina Rivera MD Discharge: Date of : 40 Report #: [id number] appeared in no distress. VITAL SIGNS: She had a blood pressure of 140/60, pulse 70. She is afebrile. HEENT: She was anicteric. Conjunctivae are pink. Mucous membranes appear dry. NECK: Veins are nondistended. CHEST: Clear to auscultation. CARDIOVASCULAR: Regular rate and rhythm. ABDOMEN: Soft, dialysis catheter in place. EXTREMITIES: Had no edema. SKIN: Cool and dry. NEUROLOGIC: Nonfocal. Her ECG done yesterday showed a sinus rhythm with PVCs in a pattern of bigeminy, left bundle branch block. Her echocardiogram done yesterday showed ejection fraction 55%, aortic sclerosis, mild mitral regurgitation, mild pulmonary hypertension. Her lab work done. She had a chest x-ray yesterday that showed evidence of an infiltrate. LABORATORY WORK: Sodium 134, potassium 3.1, creatinine was 6. Liver function studies were normal. Troponin 0.58. BNP 35,000. Her white blood cell count 8.1, hemoglobin 8.3, it was noted to be 7.4 a year ago. IMPRESSION AND RECOMMENDATIONS: 1. Pneumonia. 2. Previous carotid endarterectomy. The patient is on Plavix. 3. Anemia. No evidence of bleeding. 4. End-stage renal disease, on peritoneal dialysis. 5. Hypertension. The patient is on an AMANDA inhibitor and beta suleman. 6. Hyperlipidemia. The patient is on Zetia and a statin drug. 7. Previous tobacco abuse. 8. Chronic obstructive pulmonary disease. <ELECTRONICALLY SIGNED> By: Eliseo Owens MD, [facility] 01/01/20 1047 1644 [id number] Owens MD, FAC /nt
--- NOTE | 2020-01-01 19:42 | NUR ---
ASSUMED PT CARE AT 0800, AOX3, MAX ASSIST. O2 SAT 90'S 2L NC. PT COMPLAINS OF BOTTOM PAIN. PT REPOSITION Q2. PT BLOOD SUGAR THIS AM IS LOW. GIVE DEXTROSE, RECHECKED CAME BACK NORMAL RANGE.PT ACCU CHECK. PT ON PERITONEAL DIALYSIS. PT ON ELECTROLYTE PROTOCOL. PT ON ISO FOR PENDING COVID 19 TEST. BP SOFT. ASSESSMENT CHARTED, HOURLY ROUNDING, CALL LIGHT WITHIN REACH, WILL CONTINUE TO MONITOR.
[2020-01-01 21:41] LABS: MAGNESIUM 1.3 mg/dL (1.8-2.4)
[2020-01-01 21:42] LABS: POTASSIUM 5.2 mmol/L (3.5-5.1)
--- NOTE | 2020-01-02 00:16 | NUR ---
PT ALERT ORIENTED. ON PD CATHETER. TURN Q 2 HRS. TELEMETRY SHOWS SR BBB 1ST DEGREE AVB.
[2020-01-02 03:40] VITALS: BP 150/53
[2020-01-02 04:45] LABS: CALCIUM 8.2 mg/dL (8.5-10.1); CREATININE 6.2 mg/dL (0.6-1.3)
[2020-01-02 08:00] VITALS: BP 120/50
[2020-01-02 12:20] VITALS: BP 123/93
--- NOTE | 2020-01-02 15:40 | NUR ---
cm f/u w/pt's family. spk w/spouse, Mohit and dtr, Kinga. per Kinga pt has early onset of dementia and gets confused, aeb pt told this cm she had no hx w/hh. However, according to Mohit and Kinga pt is current w/[facility]. CM confirmed w/Sanjuana at [facility], pt has pt, ot and nursing. [facility] willing to resume care need be. cm to cont to follow.
[2020-01-02 16:00] VITALS: BP 89/46
--- NOTE | 2020-01-02 18:32 | NUR ---
PT ALERT AND ORIENTED TO ONLY SELF AND PLACE. NEEDS ENCOURAGEMENT TO EAT. Q2 TURNS FOR SKIN INTEGRITY. O2 SUPPORT WITH NC 2L/MIN. BM TWICE THIS SHIFT, INCONTINENT. NO URINE OR SPUTUM PRODUCED. FAMILY UPDATED OVER THE PHONE. MULTIPLE PVCs IN EKG, CARDIOLOGY NOTIFIED. MAG REPLACED PER ORDERS.
[2020-01-02 20:30] VITALS: BP 108/41
[2020-01-03 00:38] VITALS: BP 154/52
[2020-01-03 04:40] VITALS: BP 140/42
--- NOTE | 2020-01-03 05:13 | NUR ---
PT SLEPT MOST OF SHIFT. PT VERY LETHARGIC WHEN AWAKE. ASSESSMENT DOCUMENTED. MEDS GIVEN PER E-MAR. IV PATENT. PD RUNNING THIS SHIFT. NO URINE OUTPUT SO FAR. TYLENOL GIVEN PER E-MAR FOR A HEADACHE. WILL CONTINUE WITH PLAN OF CARE.
[2020-01-03 08:00] VITALS: BP 122/40
[2020-01-03 12:32] VITALS: BP 162/56
[2020-01-03 16:11] VITALS: BP 111/42
--- NOTE | 2020-01-03 18:12 | NUR ---
VSS, SOFT BLOOD PRESSURES, ORIENTED TO SELF, PLACE AND TIME, SR W/BBB, 1*AV BLOCK AND PVCS ON TELE, ANURIC WITH PD RUNNING. INCONTINENT OF BOWEL. HOURLY ROUNDING PERFORMED, POSSESSIONS AND CALL LIGHT WITHIN REACH COVID-19 RULE OUT/ ISOLATION
[2020-01-03 20:30] VITALS: BP 95/39
[2020-01-04] VITALS (7 sets, daily range): BP systolic 78–136; BP diastolic 30–94
--- NOTE | 2020-01-04 07:34 | NUR ---
PT SLEPT ON AND OFF THIS SHIFT. ASSESSMENT DOCUMENTED. MEDS GIVEN PER E-DEC. IV PATENT. PERITONEAL DIALYSIS RUNNING THIS SHIFT. PT REPOSITIONED THORUGH SHIFT. SHE HAD SEVERAL BM'S THIS SHIFT. BP LOW THIS AM, DR NOTIFIED, ORDERS RECIEVED. WILL CONTINUE WITH PLAN OF CARE.
--- NOTE | 2020-01-04 19:00 | NUR ---
PT VSS, HYPOTENSIVE IN THE AM, BUT PRESSURE IMPROVED, SR WITH BBB AND PVCS ON TELE, OREINTED TO SELF ONLY TODAY. P DIALYSIS RUNNING, ANURIC, INCONTINENT OF BOWEL- LOOSE STOOLS, HOURLY ROUNDING PERFORMED, POSSESSIONS AND CALL LIGHT WIHTIN REACH.
[2020-01-05] VITALS: BP 114/43
[2020-01-05 04:00] VITALS: BP 68/38
[2020-01-05 04:55] LABS: HEMATOCRIT 28.4 % (37.0-47.0); HEMOGLOBIN 9.4 gm/dL (12.0-15.0); MCH 33.2 pg (26.0-34.0); MCHC 33.3 g/dL (28.0-37.0); MCV 99.9 fL (80.0-100.0); MPV 9.1 fl. (7.2-11.1); RBC 2.84 mil/uL (4.20-5.00); RDW-CV 14.3 % (10.5-14.5); WBC 13.6 thou/uL (4.0-11.0)
--- NOTE | 2020-01-05 05:08 | NUR ---
PT SLEPT ON AND OFF THIS SHIFT. PT HAS INCREASE IN CONFUSING THIS SHIFT WELL. ASSESSMENT DOCUMENTED. MEDS GIVEN PER E-MAR. IV PATENT. PERITONEAL DIALYSIS RUNNING THIS SHIFT. TYLENOL GIVEN FOR PAIN. PT HAD LOW BLOOD PRESSURE THIS AM, DR NOTIFIED, NO ORDERS RECIEVED. WILL CONTINUE WITH PLAN OF CARE.
[2020-01-05 05:12] LABS: ALBUMIN 1.7 g/dL (3.4-5.0); CALCIUM 8.3 mg/dL (8.5-10.1); CREATININE 5.9 mg/dL (0.6-1.3); MAGNESIUM 1.7 mg/dL (1.8-2.4); PHOSPHORUS* 3.7 mg/dL (2.5-4.9); POTASSIUM 3.9 mmol/L (3.5-5.1)
--- NOTE | 2020-01-05 07:10 | NUR ---
CHANGE OF SHIFT, BEDSIDE REPORT GIVEN PATIENT SEEN AT BEDSIDE, IN BED RESTING ASSUMED PATIENT CARE
[2020-01-05 08:00] VITALS: BP 96/38
--- NOTE | 2020-01-05 11:58 | NUR ---
Plan continues to be for Pt to dc to home with [facility] once covid testing back. Following.
[2020-01-05 12:00] VITALS: BP 94/40
[2020-01-05 16:00] VITALS: BP 103/43
[2020-01-05 21:39] VITALS: BP 102/52
[2020-01-06] VITALS: BP 100/33; BP 142/81
[2020-01-06 04:00] VITALS: BP 142/50
--- NOTE | 2020-01-06 04:52 | NUR ---
COVID PENDING COLLECTED 12/31. AXO TO PERSON AND PLACE, LETHARGIC. BS AT 0000 WAS UNDER 30 GIVEN DEXTROSE IV AND 2 APPLE JUICE, RECHECKED AT 0045 AND WAS 141. SINUS RYTHYM, 1ST DEGREE BBB ON MONITOR. DIMINISHED LUNG SOUNDS, NO WHEEZES. U/A CULTURE REQUESTED, PT IS ANURIC. SPUTUM CULTURE UNCOLLECTED, NO COUGH. PATIENT WAS TURNED SEVERAL TIMES UPON REQUEST. LEFT HEEL MEDEX BOOT APPLIED AND ELEVATED. CONTACT/DROPLET PRECAUTIONS STILL IN EFFECT. PATIENT TOOK ALL MEDS PRESCRIBED, HELD ALL INSULIN AND CARVEDILOL BP WAS 102/52 AT 2100. PATIENT ABLE TO ANSWER QUESTIONS. SHE DOES NOT HAVE A GOOD APPETITE BUT IS TOLERATING FLUIDS WELL. SHE WAS ABLE TO SLEEP THROUGH THE NIGHT. 92% ON ROOM AIR. WILL CONTINUE TO FOLLOW PLAN OF CARE.
[2020-01-06 08:36] VITALS: BP 119/46
[2020-01-06 11:00] VITALS: BP 119/46
[2020-01-06 11:03] VITALS: BP 119/46
--- NOTE | 2020-01-06 11:03 | NUR ---
Pt is discharging to home today, updated [facility] and faxed dc orders. Family to nut picker and transport
[2020-01-06 13:11] VITALS: BP 123/50
--- NOTE | 2020-01-06 14:52 | NUR ---
ASSUMED CARE OF PT AROUND 0730 THIS AM. REFER TO ASSESSMENT. PT'S COVID 19 TEST RESULT BACK THIS AM WITH RESULT OF NEGATIVE. PT'S C-DIFF TEST NEGATIVE WELL. PT OK TO DC HOME WITH HOME HEALTH. DISCUSSED PLAN OF CARE WITH PT, HER , AND DAUGHTER. , DAUGHTER, AND GRANDDAUGHTER WILL BE THERE TO HELP PT AT HOME WELL HOME HEALTH. DISCHARGE INSTRUCTIONS GIVEN TO PATIENT, AND DAUGHTER AND REPORT UNDERSTANDING. INSTRUCTED TO FOLLOW COVID 19 ISOLATION RECOMMENDATIONS AT THIS TIME. NO OTHER CONCERNS AT THIS TIME. PT DC'D PER PRIVATE VEHICLE WITH .
== END 2020-01-06 14:44 | disposition home health service (06) | DRG 280 ==
LOC: M.ERS 13:47 → M.2W 16:06 → M.TBA-ER 16:06 → M.2W 20:00
PROVIDERS: Family Medicine; Internal Medicine Nephrology; Nurse Practitioner Family; ADMIT Internal Medicine
PROC: 3E1M39Z Irrigation of Peritoneal Cavity using Dialysate, Percutaneous Approach (ICD-10-PCS; principal; 2019-12-31)
PROC: 3E1M39Z Irrigation of Peritoneal Cavity using Dialysate, Percutaneous Approach (ICD-10-PCS; 2020-01-01)
PROC: 3E1M39Z Irrigation of Peritoneal Cavity using Dialysate, Percutaneous Approach (ICD-10-PCS; 2020-01-02)
PROC: 3E1M39Z Irrigation of Peritoneal Cavity using Dialysate, Percutaneous Approach (ICD-10-PCS; 2020-01-04)
PROC: 3E1M39Z Irrigation of Peritoneal Cavity using Dialysate, Percutaneous Approach (ICD-10-PCS; 2020-01-05)
DX: I13.2 Hypertensive heart and chronic kidney disease with heart failure and with stage 5 chronic kidney disease, or end stage renal disease (principal); I21.4 Non-ST elevation (NSTEMI) myocardial infarction; J15.6 Pneumonia due to other Gram-negative bacteria; N18.6 End stage renal disease; J96.01 Acute respiratory failure with hypoxia; I50.33 Acute on chronic diastolic (congestive) heart failure; E11.51 Type 2 diabetes mellitus with diabetic peripheral angiopathy without gangrene; E11.22 Type 2 diabetes mellitus with diabetic chronic kidney disease; E78.5 Hyperlipidemia, unspecified; Z96.1 Presence of intraocular lens; D63.1 Anemia in chronic kidney disease; I25.10 Atherosclerotic heart disease of native coronary artery without angina pectoris; J44.9 Chronic obstructive pulmonary disease, unspecified; G51.0 Bell's palsy; Z99.2 Dependence on renal dialysis; Z79.899 Other long term (current) drug therapy; Z79.4 Long term (current) use of insulin; Z88.1 Allergy status to other antibiotic agents; Z88.0 Allergy status to penicillin; Z88.8 Allergy status to other drugs, medicaments and biological substances; Z79.01 Long term (current) use of anticoagulants; Z82.49 Family history of ischemic heart disease and other diseases of the circulatory system; Z87.891 Personal history of nicotine dependence